=== PATIENT | male | born 1945 | race Caucasian/White ===

== ENCOUNTER 2022-12-13 11:31 | Outpatient (OUT) | payer MEDICARE, SELFPAY ==
[2022-12-13 12:25] LABS: Amphetamine Screen Urine NEGATIVE (NEGATIVE); Barbiturates Screen Urine NEGATIVE (NEGATIVE); Benzodiazepines Screen Urine NEGATIVE (NEGATIVE); Buprenorphine Screen Urine NEGATIVE (NEGATIVE); Cannabinoid Screen Urine NEGATIVE (NEGATIVE); Cocaine Screen Urine NEGATIVE (NEGATIVE); Methadone Screen Urine NEGATIVE (NEGATIVE); Methamphetamines Screen Urine NEGATIVE (NEGATIVE); Opiate Screen Urine NEGATIVE (NEGATIVE); Oxycodone Screen Urine NEGATIVE (NEGATIVE); Phencyclidine Screen Urine NEGATIVE (NEGATIVE); Tricyclic Antidepressant Urine NEGATIVE (NEGATIVE)
== END 2022-12-13 11:32 | disposition home or self-care (01) ==
LOC: LAB 11:34
PROVIDERS: PCP Internal Medicine
DX: G62.9 Polyneuropathy, unspecified (principal); Z51.81 Encounter for therapeutic drug level monitoring; Z79.899 Other long term (current) drug therapy
CPT/HCPCS: 80307

== ENCOUNTER 2023-08-23 08:17 | Outpatient (OUT) | payer MEDICARE, SELFPAY ==
--- NOTE | 2023-08-23 08:30 | CA_ITS ---
Patient Name: TOMÁS COLBY MR#: [id number] : 1945 Exam Date: 08/23/2023 Ordering Doctor: DR ONEIDA TUTTLE M.D. ECHOCARDIOGRAM REPORT PROCEDURE: CA ECHO DOPPLER COMPLETE INDICATIONS: New atrial fibrillation, hypertension COMPARISON: None. DESCRIPTION: COMPLETE ECHOCARDIOGRAM Real-time transthoracic echocardiography with 2D, M-mode, spectral and color flow Doppler performed. QUALITY: Technical quality was good. 71 , 268#, BSA 2.39, BP 124/82 LEFT VENTRICLE: Normal chamber size. Mild concentric left ventricular hypertrophy. LV EF: Global left ventricular systolic function is normal; visually estimated ejection fraction is 55 to 60%. No significant wall motion abnormalities. DIASTOLIC: Not adequately assessed due to heart rhythm. ATRIAL SEPTUM: Visually appears intact. LEFT ATRIUM: Normal chamber size. RIGHT ATRIUM: Normal chamber size. RIGHT VENTRICLE: Normal chamber size. Normal right ventricular systolic function. TRICUSPID VALVE: Normal mobility and thickness. No stenosis with mild regurgitation. Doppler studies reveal moderately (45-60) elevated right sided pressures. RVSP 48 mmHg MITRAL VALVE: Normal mobility and thickness. No evidence of mitral valve stenosis. Mild mitral annular calcification. Mild mitral regurgitation. AORTIC VALVE: Normal trileaflet appearance. Normal leaflet mobility. No evidence of aortic valve stenosis. Multifocal calcifications. No aortic regurgitation. AORTIC ROOT: Normal diameter and appearance. Ascending aorta is normal in size. PULMONIC VALVE: Normal thickness and mobility. No stenosis. Mild regurgitation. PERICARDIUM: Anterior free space; trivial effusion versus fat pad. IVC: Collapses with inspirations. IVC is normal in size. CONCLUSION: 1. Global left ventricular systolic function is normal; visually estimated ejection fraction 55 to 60% 2. Normal right ventricular size and systolic function 3. Mildly increased left ventricular wall thickness 4. Mild tricuspid regurgitation 5. Moderately elevated right ventricular systolic pressure; RVSP 48 mmHg 6. Mild mitral regurgitation 7. Mild pulmonic regurgitation 8. Anterior free space; trivial effusion versus fat pad Adult Echocardiography Procedure Report Left Ventricle LVEDD (3.7 - 5.6 cm): 4.80 cm LVESD (2.2 - 4.0 cm): 2.87 cm LVIVS thickness (0.6 - 1.2 cm): 1.53 cm LVPW thickness (0.5 - 1.0 cm): 1.23 cm LVOT Max Gradient: 2.57 mm[Hg] LVOT Area (cm2): 0.80 m/s Peak Velocity (LVOT): 0.80 m/s Mean Velocity (LVOT): 0.62 m/s LVOT Diameter 2.51 cm Left Atrium LA Volume Index (2D A2C): 34.50 ml/m2 Left Atrium Systolic Dimension: 3.76 cm Mitral Valve Mitral Valve E-Wave Peak Velocity: 0.71 m/s Right Ventricle Aorta AO Root Diam: 4.46 cm Ascending Ao Diam: 3.81 cm Aortic Valve AoV Area (Peak Junaid): 3.77 cm2, 3.77 cm2 AoV Area (VTI): 3.27 cm2, 3.27 cm2 Peak Velocity(Antegrade Flow): 1.05 m/s Peak Gradient(Antegrade Flow): 4.42 mm[Hg] Mean Velocity(Antegrade Flow): 0.82 m/s Mean Gradient(Antegrade Flow): 2.96 mm[Hg] Velocity Time Integral: 23.80 cm Tricuspid Valve Peak Velocity (Regurgitant Flow): 3.34 m/s Pulmonic Valve Peak Velocity: 0.93 m/s Peak Gradient: 3.59 mm[Hg], 3.32 mm[Hg] Right Atrium Dictated by: Malissa Allen M.D. on 08/23/2023 at 15:46 Approved by: Malissa Allen M.D. on 08/23/2023 at 15:50
== END 2023-08-23 08:18 | disposition home or self-care (01) ==
LOC: CARD 08:18
PROVIDERS: PCP Internal Medicine; Visit Provider Internal Medicine
DX: I48.0 Paroxysmal atrial fibrillation (principal)
CPT/HCPCS: 93306

== ENCOUNTER 2023-10-24 10:37 | Outpatient (OUT) | payer MEDICARE, SELFPAY ==
--- OUTSIDE RECORDS SUMMARY | 2023-10-24 10:48 | XMS_ITS | CCD ---
Author Organization [facility] Care Team Providers Care Science Interpreter Name Role Phone REQUEST, DR NONE LISTED Attending Unavaila ble REQUEST, DR VIDAL LISTED Consulting Unavaila ble TUTTLE, DR MOHAMUD Primary Care Unavailable REQUEST, NONE LISTED Admitting Unavaila ble REQUEST, NONE LISTED Attending Unavaila ble REQUEST, DR VIDAL LISTED Consulting Unavaila ble REQUEST, DR VIDAL LISTED Admitting Unavaila ble TUTTLE, DR MOHAMUD Primary Care Unavailable GRIFFIN, SALVATORE Admitting Unavailable ORTEGA, DR JOE Neff Consulting Unavailable TUTTLE, DR MOHAMUD Primary Care Unavailable SALVATORE MOYA Attending Unavailable SALVATORE MOYA Consulting Unavailable TUTTLE, DR MOHAMUD Admitting Unavailable TUTTLE, DR MOHAMUD Attending Unavailable TUTTLE, DR MOHAMUD Consulting Unavailable ZIEBER, DR PHILLY Stanton Consulting Unavailable TUTTLE, ONEIDA Wright Attending Unavailable SAKINA, FELIX Larkin Attending Unavailable PARAG, ONEIDA Wright Attending Unavailable BROWN, FELIX Larkin Attending Unavailable GWEN, LAITH Duong Attending Unavailable BROWN, FELIX Larkin Attending Unavailable TALAVERALUIS GOODRICH Attending Unavailable NANETTE BREEN Attending Unavailable NASIR YADAV Referring Unavailable TIMOTHY, NASIR Attending Unavailable TIMOTHY, NASIR Admitting Unavailable TIMOTHY, NASIR Attending Unavailable TIMOTHY, NASIR Referring Unavailable Problems Problem Classification Problem Date Documented Date Episodic/Chronic Aortic; peripheral; and visceral artery aneurysms (4 sources) Abdominal aortic aneurysm, without rupture; Translations: [ABDOMINAL AORTIC ANEUR W/O RUPTURED] Onset: 03-26-2020 Chronic Cardiac dysrhythmias (2 sources) Paroxysmal atrial fibrillation; Translations: [Paroxysmal atrial fibrillation] Onset: 09-18-2023 Chronic Spondylosis; intervertebral disc disorders; other back problems (1 source) Other spondylosis with radiculopathy, lumbar region; Translations: [OT SPONDYLS RADICULOPATHY LUMB RGN] Onset: 11-17-2020 Chronic Spondylosis; intervertebral disc disorders; other back problems (4 sources) Spinal stenosis, lumbar region without neurogenic claudication; Translations: [SPINAL STENOSIS LUMBAR REGION NO NC] Onset: 09-28-2020 Episodic Results Test Name Value Interpretation Reference Range Triston Rojas 10-22-2023 ANES - Attestation signed by Nasir Yadav MD at 10/22/2023 10:53 AM By using the attestations below, the signing clinician agrees that I have read and verify that the documentation has been personally reviewed by me and ensure that the documentation accurately reflects the encounter. GC: I personally saw this patient on the day of the encounter, performed the briceño portion(s) of the service and participated in the management and confirm the resident's documentation. Please note there may be an additional personal documentation from me. Patient: Tomás Colby Procedure Information Date/Time: 10/22/23 1100 Procedure: Cardioversion - to be done in 4 weeks Location: [facility] / [facility] (Cath) Providers: Nasir Yadav MD Clinical information reviewed: Allergies Meds Physical Exam Airway Mallampati: III Cardiovascular Rhythm: irregular Rate: normal Dental Pulmonary Breath sounds clear to auscultation Abdominal Anesthesia Plan ASA 3 other (Conscious Sedation) intravenous induction Anesthetic plan and risks discussed with patient. Use of blood products discussed with patient who consented to blood products. Plan discussed with attending. Additional Equipment Requests Normal [facility] HPon 10-22-2023 - Attestation signed by Nasir Yadav MD at 10/22/2023 10:53 AM By using the attestations below, the signing clinician agrees that I have read and verify that the documentation has been personally reviewed by me and ensure that the documentation accurately reflects the encounter. GC: I personally saw this patient on the day of the encounter, performed the briceño portion(s) of the service and participated in the management and confirm the resident's documentation. Please note there may be an additional personal documentation from me. History Of Present Illness Tomás Colby is a 78 y.o. year old with past medical history of hypertension, diabetes, was seen by his primary care doctor Dr. Simpson for elevated blood pressure. he was noted to be in atrial fibrillation at that time in August 10, 2023. he was started on anticoagulation at that time and thereafter an echocardiogram was ordered and referred to me for further evaluation. patient was also noted to have elevated TSH at that time. EKG 09/18/2023: Afib with varying VR 75bpm Past Medical History He has a past medical history of Abnormal ECG, Arrhythmia, Atrial fibrillation (CMS/HCC), and Hypertension. Surgical History He has no past surgical history on file. Social History He reports that he has quit smoking. His smoking use included cigarettes. He has quit using smokeless tobacco. He reports current alcohol use. No history on file for drug use. Allergies Patient has no known allergies. Medications Medications Prior to Admission Medication Sig Dispense Refill Last Dose amiodarone (Pacerone) 200 mg tablet Take 2 tablets (400 mg) by mouth in the morning and at bedtime for 14 days, THEN 1 tablet (200 mg) in the morning. 146 tablet 0 10/22/2023 Eliquis 5 mg tablet TAKE 1 TABLET (5 MG) BY MOUTH IN THE MORNING AND BEFORE BEDTIME 10/22/2023 metoprolol succinate XL (Toprol-XL) 25 mg 24 hr tablet Take 25 mg by mouth in the morning. 10/22/2023 RABEprazole (Aciphex) 20 mg EC tablet TAKE 1 TABLET BY MOUTH EVERY DAY FOR 100 DAYS 10/22/2023 valsartan-hydrochloro thiazide (Diovan-HCT) 320-25 mg tablet Take 1 tablet by mouth in the morning. 10/22/2023 Review of Systems 10 point Negative Physical Exam Vitals reviewed. Constitutional: Appearance: Normal appearance. HENT: Head: Normocephalic and atraumatic. Eyes: General: Right eye: No discharge. Left eye: No discharge. Cardiovascular: Rate and Rhythm: Normal rate and regular rhythm. Pulmonary: Effort: Pulmonary effort is normal. No respiratory distress. Breath sounds: Normal breath sounds. Neurological: General: No focal deficit present. Mental Status: He is alert and oriented to person, place, and time. Psychiatric: Mood and Affect: Mood normal. Behavior: Behavior normal. Last Recorded Vitals Blood pressure (!) 164/95, pulse 67, resp. rate 17, SpO2 96 %. Relevant Results Assessment/Plan Principal Problem: Paroxysmal atrial fibrillation (CMS/HCC) Patient has been on AC for the last 4 weeks. Proceed with DCCV. Robert Noriega MD PGY-4 Cardiology Fellowship Program [facility] Pager # [phone] [facility] NURSNOTEon 10-22-2023 NURSNOTE RN educated pt on d/ c instructions. RN encouraged pt to voice any questions or concerns. Pt verbalizes no questions or concerns at this time. Pt was wheeled off of unit with all of belongings. [facility] Orders Onlyon 10-22-2023 Orders Only [id number] Tomás Colby 1945 M Date Provider Department Center 10/22/2023 NASIR JACOB [facility] CARD [place] Family History Problem Relation Age of Onset Other Mother Heart failure Mother Family Status - Relation Status Age at Mother [facility] Prep for Procedureon 024 Prep for Procedure [id number] Tomás Colby 1945 M Date Provider Department Center 10/05/2023 NASIR JACOB [facility] LAB [facility] HeartVAS Family History Problem Relation Age of Onset Other Mother Heart failure Mother Family Status - Relation Status Age at Mother Normal [facility] Office Visiton 09-18-2023 Follow-up visit [id number] Tomás Colby 1945 M Date Provider Department Center 09/18/2023 NASIR JACOB [facility] Family History Problem Relation Age of Onset Other Mother Heart failure Mother Family Status - Relation Status Age at Mother Level of Service:[address] [place] OFFICE/OUTPATIENT NEW MODERATE MDM 45 MINUTES Normal [facility] MRI LSPINE WO CONon 09-29-19 MRI LSPINE WO CON EXAMINATION: MRI LSPINE WO CON HISTORY: Spondylosis without myelopathy , chronic low back pain with stiffness COMPARISON: 05/04/2015 TECHNIQUE: A variety of imaging planes and parameters were utilized for visualization of suspected pathology. FINDINGS: For the purposes of numbering, sagittal T2 image # 9 extends from the T11 vertebral body superiorly to the S2-S3 level inferiorly. PARASPINAL AREA: Normal with no visible mass. BONES: 6 mm anterolisthesis of L3 in relation to L4. 3 mm anterolisthesis of L4 in relation to L5. Heterogeneous appearance of the marrow likely age-related and/or hemangiomas. CORD/CAUDA EQUINA: Normal caliber, contour, and signal intensity. DISC LEVELS: 12-L1: Moderate degenerative disc disease is present without visible neural impingement. L1-L2: Disc desiccation. Posterior broad-based disc protrusion extending up to 2.8 mm, sagittal image 8. Ligamentum flavum hypertrophy and facet osteoarthropathy. No definite central or foraminal stenosis L2-L3: Disc desiccation. Posterior broad-based disc protrusion extending up to 2.2 mm. Moderate ligamentum flavum hypertrophy and facet osteoarthropathy. Mild trefoil narrowing of the central canal. Moderate narrowing of the right neural foramen best seen on sagittal image 12. No left foraminal stenosis L3-L4: 6 mm anterolisthesis of L3 on L4 with resultant pseudobulge. Moderate ligamentum flavum hypertrophy and facet osteoarthropathy. Severe central canal stenosis with the central canal measuring only 4 mm triangular in shape axial image #14. Moderate right foraminal stenosis sagittal image 13 with mild left foraminal stenosis sagittal image 5 L4-L5: 3 mm anterolisthesis of L4 in relation L5. Moderate diffuse bulge/pseudobulge. Ligamentum flavum hypertrophy and facet osteoarthropathy. No definite central or foraminal stenosis L5-S1: Disc space narrowing. No disc bulge or herniation. No central or foraminal stenosis IMPRESSION: Degenerative changes and multilevel spondylolisthesis. These findings are most significant at L3-L4 where severe central canal stenosis is observed. Foraminal stenosis at several levels as detailed above. Surgical consultation is recommended Electronically authenticated by: JOE VIVAS Date: 2020-09-28 09:11 Normal [facility] US ABD AORTA SCREENINGon US ABD AORTA SCREENING EXAM: US ABD AORTA SCREENING HISTORY: Abdominal aortic aneurysm without rupture. TECHNIQUE: Ultrasound was performed of the abdominal aorta. COMPARISON: None. FINDINGS: AORTA: No aneurysm, significant atherosclerosis, or visible occlusion. OTHER: Mild dilation of the common iliac arteries, 1.5 cm on right, 1.9 cm in diameter on left. IMPRESSION: 1. No abdominal aortic aneurysm or significant aortic atherosclerotic disease. Electronically authenticated by: PHILLY SHAW Date: 2020-03-26 10:15 [facility] Encounters Encounter Date Encounter Type Care Provider Facility Start: 10-22-2023 ambulatory [facility] Start: 10-22-2023 End: 10-22-2023 ambulatory [facility] Start: 10-17-2023 End: 10-17-2023 ambulatory NANETTE BREEN Not Available Start: 09-18-2023 End: 09-18-2023 ambulatory [facility] Start: 09-17-2023 End: 09-17-2023 ambulatory LUIS TALAVERA Not Available Start: 08-30-2023 End: 08-30-2023 ambulatory FELIX PRESLEY Not Available Start: 08-29-2023 End: 08-29-2023 ambulatory LAITH HIDALGO Not Available Start: 08-16-2023 End: 08-16-2023 ambulatory FELIX PRESLEY Not Available Start: 08-10-2023 End: 08-10-2023 ambulatory ONEIDA TUTTLE Not Available Start: 08-02-2023 End: 08-02-2023 ambulatory FELIX Trae SAKINA Not Available Start: 08-01-2023 End: 08-01-2023 ambulatory ONEIDA TUTTLE Not Available Start: 09-28-2020 End: 09-29-2020 ambulatory SALVATORE MOYA Facility:[facility] Start: 08-03-2020 End: 08-04-2020 ambulatory NONE LISTED REQUEST Facility:[facility] Start: 07-12-2020 End: 07-13-2020 ambulatory NONE LISTED REQUEST Facility:[facility] Start: 03-26-2020 End: 03-27-[address] ONEIDA TUTTLE Facility:[facility] Payers Date Payer Category Payer Medicare [id number] 1957 Self-pay 1945 Unknown [id number] 2.16.84 [id number] 1945 Unknown [id number] 2.16.84 [id number] 1945 Unknown [id number] 2.16.84 [id number] 1945 Unknown [id number] 2.16.84 [id number] 1945 Unknown [id number] 2.16.84 [id number] 1945 Unknown [id number] 2.16.84 [id number] 1945 Unknown [id number] 2.16.84 [id number] 1945 Unknown [id number] 2.16.84 [id number] 1945 Unknown [id number] 2.16.84 [id number] 1945 Unknown [id number] 2.16.84 [id number] Unknown [id number] 2.16.84 [id number] Unknown [id number] 2.16.84 [id number] Progress note 09-18-2023 Note Date & Type Note Facility 09-18-2023 Note [place] [facility] Consult Note [place] [facility] Reason for visit: atrial fibrillation HPI: Tomás Colby is a 78 y.o. year old with past medical history of hypertension, diabetes, was seen by his primary care doctor Dr. Simpson for elevated blood pressure. he was noted to be in atrial fibrillation at that time in August 10, 2023. he was started on anticoagulation at that time and thereafter an echocardiogram was ordered and referred to me for further evaluation. patient was also noted to have elevated TSH at that time. EKG 09/18/2023: Afib with varying VR 75bpm echocardiogram done subsequently reveals normal EF with normal left atrial size PMH: Past Medical History: Diagnosis Date Abnormal ECG Arrhythmia Atrial fibrillation (CMS/HCC) Hypertension PSH: No past surgical history on file. SH: Social Determinants of Health Tobacco Use: Medium Risk (09/18/2023) Patient History Smoking Tobacco Use: Former Smokeless Tobacco Use: Former Passive Exposure: Not on file Alcohol Use: Not on file Financial Resource Strain: Not on file Food Insecurity: Not on file Transportation Needs: Not on file Physical Activity: Not on file Stress: Not on file Social Connections: Not on file Intimate Partner Violence: Unknown (08/13/2023) [place] Safety & Environment Fear of Current or Ex-Partner: Not on file Emotionally Abused: Not on file Physically Abused: Not on file Sexually Abused: Not on file Physically or Sexually Abused: Not on file Depression: Not on file Housing Stability: Not on file Utilities: Not on file Allergies: No Known Allergies Weight: 122kg Visit Vitals BP 140/90 (BP Location: Left arm, Patient Position: Sitting) Pulse 69 Ht 1.803 m (5' 11 ) Wt 122 kg (270 lb) SpO2 96% BMI 37.66 kg/m??? Smoking Status Former BSA 2.47 m??? Meds: Current Outpatient Medications on File Prior to Visit Medication Sig Dispense Refill Eliquis 5 mg tablet TAKE 1 TABLET (5 MG) BY MOUTH IN THE MORNING AND BEFORE BEDTIME metoprolol succinate XL (Toprol-XL) 25 mg 24 hr tablet Take 25 mg by mouth in the morning. RABEprazole (Aciphex) 20 mg EC tablet TAKE 1 TABLET BY MOUTH EVERY DAY FOR 100 DAYS valsartan-hydrochlorothiazide (Diovan-HCT) 320-25 mg tablet Take 1 tablet by mouth in the morning. No current facility-administered medications on file prior to visit. ROS: Review of Systems Cardiovascular: Positive for dyspnea on exertion, leg swelling and palpitations. Musculoskeletal: Positive for joint pain, myalgias and neck pain. Neurological: Positive for headaches. All other systems reviewed and are negative. Physical Exam: Constitutional General Appearance: well-nourished, well-developed, appears stated age Level of Distress: comfortable Psychiatric Mental Status: alert, normal affect Orientation: oriented to time, place, and person Insight: good judgement Eyes Lids and Conjunctivae: non-injected, no xanthelasma ENMT Ears: no lesions on external ear Nose: no lesions on external nose Oropharynx: no cyanosis, no pallor Neck Neck: supple, trachea midline Carotid Arteries: bilateral normal upstroke, no bruits Jugular Veins: normal jugular venous pressure Thyroid: not enlarged Lungs Respiratory Effort: unlabored Chest Exam: normal curvature, no thoracic deformity Auscultation: clear, no wheezing, no rales, no rhonchi Cardiovascular Rate And Rhythm: regular Heart Sounds: normal S1, normal s2, no gallop Systolic Murmur: not heard Diastolic Murmur: not heard Extremities: no cyanosis, no edema, no peripheral signs of emboli Peripheral Pulses Radial Pulse: normal Abdomen Inspection and Palpation: soft, non distended, no bruit, non tender Musculoskeletal Inspection: no joint swelling Neurologic Gait: normal gait Skin Inspection and Palpation: warm and dry Nails: no clubbing Labs: @LABRESULTS@ No results found for: CHOLESTEROL TOTAL , HDL , LDL CALC , LDL DIRECT , TRIGLYCERIDES , TSH , T3 TOTAL , T4 TOTAL , THYROID PEROXIDASE AB , BNP EKG: No results found for this or any previous visit (from the past 4464 hour(s)). Echo: 08/23/2023 Stress test: Coronary angiogram: @CATH@ Diagnostic Imaging: No images are attached to the encounter. Assessment and Plan: - Afib: patient has got a new diagnosis of atrial fibrillation and for the fact that he has remained in A-fib tells me that he is in persistent atrial fibrillation and not likely chronic as his left atrial size appear to be normal. at this stage I would start him on amiodarone and offer cardioversion and then subsequently considered for ablation to maintain sinus rhythm. we talked about risk factor modification and to maintain sinus rhythm and the importance of weight loss and calorie control. his [id number] score is 4 which will require long-term anticoagulation. he will need to be worked up for sleep apnea - hyp (more content not included)... [facility] Summary Purpose Family History No Family History Records FoundNo Family History Records FoundNo Family History Records Found Advance Directives No Advanced Directives Records FoundNo Advanced Directives Records FoundNo Advanced Directives Records Found Additional Source Comments (unrecognized sect ion and content) No Status Records FoundNo Status Records FoundNo Status Records Found INFORMATION SOURCE (unrecogn ized section and content) DATE CREATED AUTHOR 11/18/2020 [facility] pital DATE CREATED AUTHOR AUTHOR'S ORGANIZ ATION 10/19/2023 [facility] EPIC DATE CREATED AUTHOR AUTHOR'S ORGANIZ ATION 10/22/2023 [facility] FOR RECORDS PERTAINING TO PATIENTS WHO ARE OR HAVE BEEN ENROLLED IN A CHEMICAL DEPENDENCY/SUBSTANCEABUSE PROGRAM, SOME INFORMATION MAY BE OMITTED. This clinical summary was aggregated from multiple sources. Caution should be exercised in using it in the provision of clinical care. This summary normalizes information from multiple sources, and as a consequence, information in this document may materially change the coding, format and clinical context of patient data. In addition, data may be omitted in some cases. CLINICAL DECISIONS SHOULD BE BASED ON THE PRIMARY CLINICAL RECORDS. [employer] provides no warranty or guarantee of the accuracy or completeness of information in this document.
[2023-10-24 11:26] LABS: Basophils Percent Auto 0.4 % (0.2-2.0); Eosinophils Absolute Auto 0.2 10^3/uL (0.0-0.7); Eosinophils Percent Auto 2.9 % (0.9-7.0); Hematocrit 37.9 % (42.0-54.0); Hemoglobin 12.1 g/dL (14.0-18.0); Immature Granulocytes Abs Auto 0.02 10^3/uL (0.00-0.03); Immature Granulocytes Pct Auto 0.2 % (0.0-0.5); Lymphocytes Absolute Auto 2.8 10^3/uL (1.2-3.8); Lymphocytes Percent Auto 34.7 % (20.5-60.0); Mean Corpuscular HGB Conc 31.9 g/dL (29.9-35.2); Mean Corpuscular Volume 93.8 fL (80.0-94.0); Mean Platelet Volume 10.9 fL (9.5-13.5); Monocytes Absolute Auto 0.8 10^3/uL (0.3-0.8); Monocytes Percent Auto 10.2 % (1.7-12.0); Neutrophils Absolute Auto 4.2 10^3/uL (1.4-6.5); Neutrophils Percent Auto 51.6 % (43.0-75.0); Platelet Count 265 10^3/uL (150-450); Red Blood Count 4.04 10^6/uL (4.70-6.10); Red Cell Distribution Width 14.3 % (11.0-15.0)
[2023-10-24 12:14] LABS: BUN Creatinine Ratio 22.6; Calcium 8.3 mg/dL (8.5-10.1); Carbon Dioxide 28.8 mmol/L (21.0-32.0); Chloride 106 mmol/L (98-107); Estimated GFR (African America >60 (>=60); Estimated GFR (Non-African Ame >60 (>=60); Glucose 107 mg/dL (74-106); Potassium 3.8 mmol/L (3.5-5.1); Sodium 142 mmol/L (136-145)
== END 2023-10-24 10:38 | disposition home or self-care (01) ==
LOC: LAB 10:44
PROVIDERS: PCP Internal Medicine; Visit Provider Internal Medicine Cardiovascular Disease
DX: I48.0 Paroxysmal atrial fibrillation (principal)
CPT/HCPCS: 36415; 80048; 85025

== ENCOUNTER 2023-12-14 09:32 | Outpatient (OUT) | payer MEDICARE, SELFPAY ==
[2023-12-14 10:07] LABS: Basophils Percent Auto 0.6 % (0.2-2.0); Eosinophils Absolute Auto 0.2 10^3/uL (0.0-0.7); Eosinophils Percent Auto 3.1 % (0.9-7.0); Hematocrit 39.9 % (42.0-54.0); Hemoglobin 12.7 g/dL (14.0-18.0); Immature Granulocytes Abs Auto 0.01 10^3/uL (0.00-0.03); Immature Granulocytes Pct Auto 0.2 % (0.0-0.5); Lymphocytes Absolute Auto 2.5 10^3/uL (1.2-3.8); Lymphocytes Percent Auto 39.5 % (20.5-60.0); Mean Corpuscular HGB Conc 31.8 g/dL (29.9-35.2); Mean Corpuscular Hemoglobin 30.5 pg (25.9-34.0); Mean Corpuscular Volume 95.7 fL (80.0-94.0); Mean Platelet Volume 11.2 fL (9.5-13.5); Monocytes Absolute Auto 0.6 10^3/uL (0.3-0.8); Monocytes Percent Auto 8.7 % (1.7-12.0); Neutrophils Percent Auto 47.9 % (43.0-75.0); Platelet Count 217 10^3/uL (150-450); Red Blood Count 4.17 10^6/uL (4.70-6.10); Red Cell Distribution Width 13.7 % (11.0-15.0); White Blood Count 6.4 10^3/uL (4.0-11.0)
[2023-12-14 10:25] LABS: Anion Gap 7.9; BUN Creatinine Ratio 23.3; Calcium 8.8 mg/dL (8.5-10.1); Chloride 104 mmol/L (98-107); Estimated GFR (African America >60 (>=60); Estimated GFR (Non-African Ame >60 (>=60); Glucose 110 mg/dL (74-106); Potassium 3.9 mmol/L (3.5-5.1); Sodium 140 mmol/L (136-145)
== END 2023-12-14 09:33 | disposition home or self-care (01) ==
LOC: LAB 09:37
PROVIDERS: PCP Internal Medicine; Visit Provider Internal Medicine Cardiovascular Disease
DX: I48.19 Other persistent atrial fibrillation (principal)
CPT/HCPCS: 36415; 80048; 85025

== ENCOUNTER 2024-03-12 09:25 | Outpatient (OUT) | payer MEDICARE, SELFPAY ==
--- OUTSIDE RECORDS SUMMARY | 2024-03-12 09:41 | XMS_ITS | CCD ---
Author Organization [facility] Care Team Providers Care Chief Ii Dispatcher Name Role Phone REQUEST, NONE LISTED Attending Unavaila ble REQUEST, NONE LISTED Consulting Unavaila ble BRANHAM, DR MOHAMUD Primary Care Unavailable REQUEST, NONE LISTED Admitting Unavaila ble REQUEST, NONE LISTED Attending Unavaila ble REQUEST, NONE LISTED Consulting Unavaila ble REQUEST, NONE LISTED Admitting Unavaila ble BRANHAM, DR MOHAMUD Primary Care Unavailable SALVATORE MOYA Admitting Unavailable TERRYVILLE, DR JOE Neff Consulting Unavailable PARAG, DR MOHAMUD Primary Care Unavailable SALVATORE MOYA Attending Unavailable GRIFFIN, SALVATORE Consulting Unavailable PARAG, DR MOHAMUD Admitting Unavailable BRANHAM, DR MOHAMUD Attending Unavailable BRANHAM, DR MOHAMUD Consulting Unavailable ZIEBER, DR PHILLY Stanton Consulting Unavailable TIMOTHY, NASIR Referring Unavailable TIMOTHY, NASIR Attending Unavailable TIMOTHY, NASIR Attending Unavailable ERIEJANNETTE Attending Unavailable TIMOTHY, NASIR Admitting Unavailable TIMOTHY, NASIR Attending Unavailable TIMOTHY, NASIR Admitting Unavailable TIMOTHY, NASIR Attending Unavailable BRADXIOMARA Attending Unavailable TIMOTHY, NASIR Referring Unavailable TIMOTHY, NASIR Referring Unavailable TIMOTHY, NASIR Referring Unavailable Armando Branham MD Unavailable [phone] Armando Branham MD Primary Care Provider ARMANDO BRANHAM Attending Unavailable FELIX PRESLEY Attending Unavailable ARMANDO BRANHAM Attending Unavailable FELIX PRESLEY Attending Unavailable LAITH HIDALGO Attending Unavailable FELIX PRESLEY Attending Unavailable LUIS TALAVERA Attending Unavailable NANETTE MARTINEZ Attending Unavailable LUIS TALAVERA Attending Unavailable NANETTE MARTINEZ Attending Unavailable LUIS TALAVERA Referring Unavailable TALAVERALUIS GOODRICH Attending Unavailable Medications Current Medications Medication Drug Class(es) Dates Sig (Normalized) Sig (Original) acetaminophen 325 mg / HYDROcodone bitartrate 5 mg oral tablet (4 sources) Opioid Agonist Start: 03-06-2024 End: 04-05-2024 take 1 tablet by mouth once daily as needed for pain HYDROcodone-acetami nophen ([place]) 5-325 MG tablet Indications: Lumbar facet arthropathy , Spinal stenosis of lumbar region, unspecified whether neurogenic claudication present Take 1 tablet by mouth Daily as needed for severe pain 30 tablet 03/06/2024 04/05/2024 Active End: 03-06-2024 take 1 tablet by mouth every six hours as needed for pain HYDROcodone-acetaminophen ([place]) 5-325 MG tablet Take 1 tablet by mouth every 6 (six) hours if needed for severe pain 03/06/2024 Discontinued (Reorder) amiodarone hydrochloride 200 mg oral tablet (3 sources) Antiarrhythmic take 2 tablets by mouth at bedtime, then take 1 tablet by mouth in the morning amiodarone (Pacerone) 200 MG tablet TAKE 2 TABLETS BY MOUTH IN THE MORNING AND AT BEDTIME FOR 14 DAYS, THEN 1 TABLET IN THE MORNING Active amLODIPine 5 mg oral tablet (5 sources) Dihydropyridine Calcium Channel Mary Start: 024 take 1 tablet by mouth once daily amLODIPine (Norvasc) 5 MG tablet Indications: Essential (primary) hypertension (CMS/HCC) TAKE 1 TABLET BY MOUTH EVERY DAY 100 DAYS 90 tablet 5 09/17/2023 Active take 1 tablet by mouth once renita y amLODIPine (Norvasc) 2.5 MG tablet Take 2.5 mg by mouth Daily Active apixaban 5 mg oral tablet (3 sources) Factor Xa Inhibitor Start: 08-10-2023 take 1 tablet by mouth in the morning apixaban (Eliquis) 5 MG tablet Indications: Paroxysmal atrial fibrillation (CMS/HCC) Take 1 tablet (5 mg) by mouth in the morning and 1 tablet (5 mg) before bedtime. 60 tablet 11 08/10/2023 Active Blood Pressure kit (3 sources) Start: 08-29-2023 End: 08-28-2024 Blood Pressure kit Indications: Benign essential hypertension (CMS/HCC) , Paroxysmal atrial fibrillation (CMS/HCC) 1 Device Daily 1 kit 08/29/2023 08/28/2024 Active hydroCHLOROthiazide 25 mg / valsartan 320 mg oral tablet (3 sources) Thiazide Diuretic, Angiotensin 2 Receptor Mary Start: 09-19-2023 take 1 tablet by mouth once daily valsartan-hydroCH LOROthiazide (Diovan-HCT) 320-25 MG tablet Indications: Essential (primary) hypertension (CMS/HCC) Take 1 tablet by mouth Daily 90 tablet 5 09/19/2023 Active 24 hr metoprolol succinate 25 mg extended release oral tablet (3 sources) beta-Adrenergic Mary Start: 08-29-2023 End: 08-28-2024 take 1 tablet by mouth once daily metoprolol succinate XL (Toprol-XL) 25 MG 24 hr tablet Indications: Benign essential hypertension (CMS/HCC) , Paroxysmal atrial fibrillation (CMS/HCC) Take 1 tablet (25 mg) by mouth Daily Do not crush or chew. 90 tablet 3 08/29/2023 08/28/2024 Active nebivolol 10 mg oral tablet (2 sources) Start: 02-06-2024 End: 08-04-2024 take 1 tablet by mouth in the morning nebivolol (Bystolic) 10 MG tablet Take 10 mg by mouth in the morning. 02/06/2024 08/04/2024 Active omeprazole 40 mg delayed release oral capsule (2 sources) Proton Pump Inhibitor Start: 12-19-2023 take 1 capsule by mouth before mealtime omeprazole (PriLOSEC) [address] capsule Take 40 mg by mouth in the morning. Take before meals. 12/19/2023 Active RABEprazole sodium 20 mg delayed release oral tablet (3 sources) Proton Pump Inhibitor Start: 09-19-2023 take 1 tablet by mouth once daily RABEprazole (Aciphex) 20 MG EC tablet Indications: Gastro-esophageal reflux disease with esophagitis TAKE 1 TABLET BY MOUTH EVERY DAY FOR 100 DAYS 90 tablet 5 09/19/2023 Active tiZANidine 4 mg oral tablet (3 sources) Central alpha-2 Adrenergic Agonist take 4 mg by mouth at bedtime TIZANIDINE HCL PO Take 4 mg by mouth at bedtime Active Problems Active Problems Problem Classification Problem Date Documented Date Episodic/Chronic Aortic; peripheral; and visceral artery aneurysms (4 sources) Abdominal aortic aneurysm, without rupture; Translations: [ABDOMINAL AORTIC ANEUR W/O RUPTURED] Onset: 03-26-2020 Chronic Cardiac dysrhythmias (5 sources) Paroxysmal atrial fibrillation; Translations: [Paroxysmal atrial fibrillation] Onset: 08-10-2023 Chronic Diabetes mellitus with complications (3 sources) Type 2 diabetes mellitus; Translations: [Type 2 diabetes mellitus with other specified complication] Onset: 08-01-2023 08-01-2023 Chronic Disorders of lipid metabolism (3 sources) Pure hypercholesterolemia; Translations: [Pure hypercholesterolemia, unspecified] Onset: 10-23-2022 10-23-2022 Chronic Diverticulosis and diverticulitis (3 sources) Diverticulosis of colon; Translations: [Diverticulosis of large intestine without perforation or abscess without bleeding] Onset: 10-23-2022 10-23-2022 Chronic Esophageal disorders (3 sources) Gastro-esophageal reflux disease with esophagitis; Translations: [Gastroesophageal reflux disease with esophagitis] Onset: 10-23-2022 10-23-2022 Chronic Essential hypertension (5 sources) Essential (primary) hypertension; Translations: [Benign essential hypertension] Onset: 10-23-2022 Chronic Hypertension with complications and secondary hypertension (2 sources) Hypertensive heart disease without heart failure; Translations: [Hypertensive heart disease without heart failure] Onset: 02-06-2024 Chronic Mood disorders (3 sources) Depressive disorder; Translations: [Depressive disorder] Onset: 10-23-2022 10-23-2022 Chronic Osteoarthritis (6 sources) Osteoarthritis; Translations: [Primary generalized (osteo)arthritis] Onset: 10-23-2022 10-23-2022 Chronic Other aftercare (5 sources) Patient encounter status; Translations: [Other rat exterminator (current) drug therapy] Onset: 09-16-2023 09-16-2023 Episodic Other connective tissue disease (5 sources) Cramp in lower limb; Translations: [Sleep related leg cramps] Onset: 09-16-2023 09-16-2023 Chronic Other nervous system disorders (5 sources) Polyneuropathy; Translations: [Polyneuropathy, unspecified] Onset: 09-16-2023 09-16-2023 Chronic Rheumatoid arthritis and related disease (2 sources) Arthropathy of lumbar facet joint 03-06-2024 Chronic Spondylosis; intervertebral disc disorders; other back problems (12 sources) Other spondylosis with radiculopathy, lumbar region; Translations: [Lumbar spondylosis] Onset: 11-17-2020 10-23-2022 Chronic Spondylosis; intervertebral disc disorders; other back problems (20 sources) Spinal stenosis, lumbar region without neurogenic claudication; Translations: [Lumbar radiculopathy] Onset: 09-28-2020 Episodic Unclassified (2 sources) Other persistent atrial fibrillation; Translations: [Other persistent atrial fibrillation] Onset: 12-19-2023 Past or Other Problems Problem Classification Problem Date Documented Date Episodic/Chronic Other connective tissue disease (3 sources) Plantar fasciitis of right foot; Translations: [Plantar fascial fibromatosis] Onset: 11-02-2022 11-02-2022 Episodic Other connective tissue disease (3 sources) Fibromyalgia; Translations: [Fibromyalgia] Onset: 09-16-2023 09-16-2023 Episodic Other connective tissue disease (3 sources) Musculoskeletal finding; Translations: [Unspecified symptoms and signs involving the musculoskeletal system] Onset: 09-16-2023 09-16-2023 Episodic Other connective tissue disease (3 sources) Muscle pain; Translations: [Myalgia, unspecified site] Onset: 09-16-2023 09-16-2023 Episodic Other connective tissue disease (3 sources) Enthesopathy of hip region; Translations: [Other specified enthesopathies of unspecified lower limb, excluding foot] Onset: 09-16-2023 09-16-2023 Episodic Other connective tissue disease (3 sources) Spasm; Translations: [Other muscle spasm] Onset: 09-16-2023 09-16-2023 Episodic Other diseases of veins and lymphatics (3 sources) Peripheral venous insufficiency; Translations: [Venous insufficiency (chronic) (peripheral)] Onset: 08-10-2023 08-10-2023 Episodic Other nervous system disorders (3 sources) Skin sensation disturbance; Translations: [Unspecified disturbances of skin sensation] Onset: 09-16-2023 09-16-2023 Episodic Other nervous system disorders (3 sources) Paresthesia; Translations: [Paresthesia of skin] Onset: 09-16-2023 09-16-2023 Episodic Results Test Name Value Interpretation Reference Range Facil ity 36on 03-02-2024 36 Can we please cut amlodipine down to 7.5mg daily to see if this will help with the swelling. Increase nebivolol to 10mg daily. Follow up BP/HR phone call in 2 weeks. Thanks! Normal [facility] 36on 02-29-2024 36 149/78 55, 170/82 60 , 149/67, 170/82 60, 153/81 61, 196/90 51, 155/79 50, 157/76, 167/80 59, 148/69 67, 151/82 57, 161/66, 155/73, 159/86 58. Also his legs and feet are swelling with the increased amlodipine [facility] 37on 02-06-2024 37 *Will replace metoprolol with Bystolic (nebivolol), 5mg. Take 1 tablet daily. *Monitor blood pressure 2 hours after taking morning medications and write down readings. Write down HR as well. *Stop in for a blood pressure cuff comparison. *Continue to stay active. Recommend moderate intensity exercise for 20-30 mins 5 days a week. [facility] Office Visiton 02-06-2024 Follow-up visit [id number] Jose A Noriega 1945 [facility] Provider Department Center 02/06/2024 JEANNETTE ARGUETA ROCAEL Patel Family History Problem Relation Age of Onset Other Mother Heart failure Mother Family Status - Relation Status Age at Mother Level of Service:19315 [place] OFFICE/OUTPATIENT ESTABLISHED MOD MDM 30 MIN Reason for Visit and Comments: Hypertension [435705] [facility] 36on 02-05-2024 36 Is this 2 hours afte r they have taken their medications? Since I've never seen the patient I don't feel comfortable prescribing anything additional. I can do a telehealth visit or he can see his PCP. [facility] 37on 01-18-2024 37 Stop amiodarone Monitor blood pressure 1-2 times a day- goal is less than 130/80 majority of the time [facility] Follow-Upon 01-18-2024 Follow-Up [id number] Jose A Noriega 1945 M [facility] Provider Department Center 01/18/2024 XIOMARA HUGGINS ROCAEL Patel Family History Problem Relation Age of Onset Other Mother Heart failure Mother Family Status - Relation Status Age at Mother Level of Service:70038 [place] OFFICE/OUTPATIENT ESTABLISHED LOW MDM 20 MIN Normal [facility] Telephoneon 01-11-2024 Telephone [id number] Jose A Noriega A 1945 M Date Provider Department Center 01/11/2024[facility] [place] [facility] Family History Problem Relation Age of Onset Other Mother Heart failure Mother Family Status - Relation Status Age at Mother Reason for Visit and Comments: 3 week post ablation f/u [Other] Normal [facility] Telephoneon 12-28-2023 Telephone [id number] Jose A Noriega A 1945 M Date Provider Department [place] 12/28/20231986-[facility] [place] [facility] Family History Problem Relation Age of Onset Other Mother Heart failure Mother Family Status - Relation Status Age at Mother Reason for Visit and Comments: week f/u post ablation [Other] Normal [facility] ANESon 12-19-2023 ANES --- Attestation signed by Nasir Yadav MD at 12/19/2023 8:26 AM By using the attestations below, the [...] an additional personal documentation from me. Patient: Harjeet Noriega Procedure Information Date/Time: 08/21/24 0830 Procedure: Ablation atrial fibrillation - PC APPROVED do after cardioversion Location: [facility] 1 EP / [facility] VASCULAR [facility] (Cath) Providers: Nasir Yadav MD Clinical information reviewed: Tobacco Allergies Meds Med Hx Surg Hx Physical Exam Airway Mallampati: III Neck ROM: full Cardiovascular Rhythm: regular Dental Pulmonary - normal exam Abdominal - normal exam Abdomen: soft Anesthesia Plan ASA 3 general (And local) intravenous induction Anesthetic plan and risks discussed with patient. Use of blood products discussed with patient who consented to blood products. Plan discussed with attending and fellow. Additional Equipment Requests Normal [facility] CALCIUM, IONIZEDon CALCIUM IONIZED (MMOL/L) IN BLOOD 1.16 mmol/L Normal 1.15-1.33 [facility] Comment on above: Performed By: #### C ALCIUM, IONIZED #### [facility] RESPIR[facility] THERAPY [address] [place] [address] [facility] HPon 12-19-2023 [facility] Electrophysiology Consult Note [place] [facility] Reason for visit: atrial fibrillation 12/19/23 Pt here for Afib ablation. EKG SR with isorhythmic junctionals 12/11/23 Pt here for discussion about ablation. HPI: Harjeet Noriega is a 78 y.o. year old with [...] Medical History: Diagnosis Date Abnormal ECG Arrhythmia Arthritis Atrial fibrillation (CMS/HCC) Diabetes mellitus (CMS/HCC) Fibromyalgia GERD (gastroesophageal reflux disease) History of colon polyps Hypertension Joint pain BACK PAIN Lipoprotein deficiency Lumbar stenosis SI (sacroiliac) joint dysfunction PSH: Past Surgical History: Procedure Laterality Date CARDIOVERSION 10/22/2023 COLONOSCOPY OTHER SURGICAL HISTORY Bilat Facet Blocks L4-S1 OTHER SURGICAL HISTORY Bilateral L4-L5 Facet Injections 04/13/2021, 12/19/2021, 06/27/2022 OTHER SURGICAL HISTORY IR FACET INJ LUMB OR SAC 1ST 06/06/2023 Bilateral L4-L5 TONSILLECTOMY SH: Social Determinants of Health Tobacco Use: Medium Risk (12/19/2023) Patient History Smoking Tobacco Use: Former Smokeless Tobacco Use: Former Passive Exposure: Not on file Alcohol Use: Not on file Financial Resource Strain: Not on file Food Insecurity: Not on file Transportation Needs: Not on file Physical Activity: Not on file Stress: Not on file Social Connections: Not on file Intimate Partner Violence: Unknown (08/13/2023) [place] Safety & Environment Fear of Current or Ex-Partner: Not on file Emotionally Abused: Not on file Physically Abused: Not on file Sexually Abused: Not on file Physically or Sexually Abused: Not on file Depression: Not on file Housing Stability: Not on file Utilities: Not on file Allergies: No Known Allergies Weight: 126kg Visit Vitals BP (!) 191/93 Pulse 54 Temp 36.2 ???C (97.2 ???F) (Temporal) Resp 18 Ht 1.803 m (5' 11 ) Wt 126 kg (277 lb 9 oz) SpO2 96% BMI 38.71 kg/m??? Smoking Status Former BSA 2.51 m??? Meds: No current facility-administered medications on file prior to encounter. Current Outpatient Medications on File Prior to Encounter Medication Sig Dispense Refill amiodarone (Pacerone) 200 mg tablet Take 2 tablets (400 mg) by mouth in the morning and at bedtime for 14 days, THEN 1 tablet (200 mg) in the morning. (Patient taking differently: Take 200mg once a day) 146 tablet 0 Eliquis 5 mg tablet TAKE 1 TABLET (5 MG) BY MOUTH IN THE MORNING AND BEFORE BEDTIME metoprolol succinate XL (Toprol-XL) 25 mg 24 hr tablet Take 25 mg by mouth in the morning. RABEprazole (Aciphex) 20 mg EC tablet TAKE 1 TABLET BY MOUTH EVERY DAY FOR 100 DAYS valsartan-hydrochloroth iazide (Diovan-HCT) 320-25 mg tablet Take 1 tablet by mouth in the morning. ROS: Review of Systems Neurological: Positive for headaches. All other systems [...] , THYROID PEROXIDASE AB , BNP EKG: Encounter Date: 12/19/23 Electrocardiogram, 12-lead Result Value Ventricular Rate 49 Atrial Rate 49 [place] Interval 242 QR (more content not included)... Normal [facility] --- Attestation signed by Nasir Yadav MD at 12/19/2023 8:55 AM By using the attestations below, the [...] be an additional personal documentation from me. H&P reviewed. The patient was examined and there are no changes to the H&P. The patient presents for Afib ablation today [facility] NURSNOTEon 12-19-2023 AYSHA RN received a call b ack from Dr. Hightower and he verified with Dr. Yadav patient is okay to be discharged home still. RN educated patient on holding pressure to groin and seeking medical attention if site began to bleed and is not controlled by holding pressure or if he develops a hematoma. Normal [facility] SUYAPAE Patient stood up to get himself dressed to be discharged and reports blood dripping down my leg. RN assessed cath access site and site was saturated with new blood. RN held pressure for 10 minutes and notified powerhouse tender Dr. Hightower of bleeding site. Site is soft, no hematoma noted and bleeding has stopped. Site was redressed with new gauze and transparent film. RN was told he would get in contact with Dr. Yadav and call back with instructions. Normal [facility] AYSHA RN reviewed discharg e instructions with patient and daughter at bedside. No questions or concerns expressed at this time. Patient's head of bed elevated and cath access site remained intact, no new drainage observed. Normal [facility] POCT GLUCOSE METER UNSOLICIT ED RESULTSon 12-19-2023 Glucose [Mass/Vol] 146 mg/dL High 70-105 [facility] Comment on above: Order Comment: Waive d Testing in the ED is performed under the ED CLIA certificate #[id number]. Result Comment: hste enr2 Performed By: #### L [id number] ####[facility] (BEAKER)[address] [place] [address] Glucose [Mass/Vol] 113 mg/dL High 70-105 [facility] Comment on above: Order Comment: Waive d Testing in the ED is performed under the ED CLIA certificate #[id number]. Result Comment: evelio rd Performed By: #### L [id number] ####[facility] (CRISTA)[address] [place] [address] POTASSIUM, WHOLE BLOODon Potassium [Moles/Vol] 3.7 mmol/L Normal 3.5-5.1 [facility] Comment on above: Performed By: #### P OTASSIUM, WHOLE BLOOD #### [facility] RESPIR[facility] THERAPY [address] [place] [address] [place] PROTIME-INRon 12-19-2023 INR IN PPP BY COAGULATION ASSAY 1.16 High 0.90-1.10 [facility] Comment on above: Result Comment: ACCC P RECOMMENDED INR FOR WARFARIN THERAPY CONDITION INR PROPHYLAXIS OF VENOUS THROMBOSIS 2-3 (HIGH-RISK SURGERY) TREATMENT OF VENOUS THROMBOSIS 2-3 TREATMENT OF PULMONARY EMBOLISM 2-3 PREVENTION OF SYSTEMIC EMBOLISM: 2-3 ACUTE MYOCARDIAL INFARCTION TISSUE HEART VALVES VALVULAR HEART DISEASE ATRIAL FIBRILLATION RECURRENT SYSTEMIC EMBOLISM MECHANICAL HEART VALVE 2.5-3.5 FROM: ORAL ANTICOAGULANTS. MECHANISM OF ACTION, CLINICAL EFFECTIVENESS, AND OPTIMAL THERAPEUTIC RANGE. CHEST 1995;108:231S-246S. Performed By: #### L [id number] #### [facility] ([facility]ISTA) [address] [place] [address] PROTHROMBIN TIME (PT) IN PPP BY COAGULATION ASSAY 14.7 Seconds Normal 12.3-14.8 [facility] Comment on above: Performed By: #### L [id number] #### [facility] ([facility]) [address] [place] [address] Prep for Procedureon 024 Prep for Procedure [id number] Harjeet Noriega 1945 M Date Provider Department Center 12/19/2023 [facility] [place] [facility] Family History Problem Relation Age of Onset Other Mother Heart failure Mother Family Status - Relation Status Age at Mother Normal [facility] SODIUM, WHOLE BLOODon 2023 SODIUM, WHOLE BLOOD 134 Low 136-145 [facility] Comment on above: Performed By: #### S ODIUM, WHOLE BLOOD ####[facility] RESPIRATORY [id number] [place] [address] [facility] Prep for Procedureon 024 Prep for Procedure [id number] Harjeet Noriega 1945 Date Provider Department Center 12/13/2023 [facility] [place] [facility] Family History Problem Relation Age of Onset Other Mother Heart failure Mother Family Status - Relation Status Age at Mother Normal [facility] HPon 12-11-2023 HP Here for a consult f or a afib ablation. Denies sob, dizziness [place] Electrophysiology Consult Note [place] [facility] - [facility] Reason for visit: atrial fibrillation 12/11/23 Pt here for discussion about ablation. HPI: Harjeet Noriega is a 78 y.o. year old with [...] on file Intimate Partner Violence: Unknown (08/13/2023) [place] Safety & Environment Fear of Current or Ex-Partner: Not on file Emotionally Abused: Not on file Physically Abused: Not on file Sexually Abused: Not on file Physically or Sexually Abused: Not on file Depression: Not on file Housing Stability: Not on file Utilities: Not on file Allergies: No Known Allergies Weight: 126kg Visit Vitals BP 175/85 Ht 1.803 m (5' 11 ) Wt 126 kg (278 lb) SpO2 93% BMI 38.77 kg/m??? Smoking Status Former BSA 2.51 m??? Meds: Current Outpatient Medications on File Prior to Visit Medication Sig Dispense Refill amiodarone (Pacerone) 200 mg tablet Take 2 tablets (400 mg) by mouth in the morning and at bedtime for 14 days, THEN 1 tablet (200 mg) in the morning. (Patient taking differently: Take 200mg once a day) 146 tablet 0 Eliquis 5 mg tablet TAKE 1 TABLET (5 MG) BY MOUTH IN THE MORNING AND BEFORE BEDTIME ferrous sulfate 325 (65 Fe) MG EC tablet Take 65 mg of iron by mouth with breakfast, with lunch, and with evening meal. Do not crush, chew, or split. metoprolol succinate XL (Toprol-XL) 25 mg 24 hr tablet Take 25 mg by mouth in the morning. RABEprazole (Aciphex) 20 mg EC tablet TAKE 1 TABLET BY MOUTH EVERY DAY FOR 100 DAYS valsartan-hydrochloroth iazide (Diovan-HCT) 320-25 mg tablet Take 1 tablet by mouth in the morning. No current facility-administered medications on file prior to visit. ROS: Review of Systems Neurological: Positive for headaches. All other systems [...] , THYROID PEROXIDASE AB , BNP EKG: Encounter Date: 10/22/23 ECG 12 lead Result Value Ventricular Rate 60 Atrial Rate 258 QRS DURATION 160 QT Interval 508 QTC CALCULATION(BAZETT) 508 R-[place] -38 T Wave [place] 116 Impression Atrial fibrillation Left axis deviation Non-specific intra-ventricular conduction block Left ventricular hypertrophy with repolarization abnormality ( R in aVL , [place] product ) Abnormal ECG When compared with ECG of 22-OCT-2023 09:56, (unconfirmed) Afib persists Confirmed by Nasir Yadav ([id number]) on 10/23/2023 8:43:15 AM Echo: 08/23/2023 Stress test: Danilo (more content not included)... Normal [facility] Office Visiton 12-11-2023 Follow-up visit [id number] Jose A Noriega 1945 Date Provider Department Center 12/11/2023 NASIR JACOB [facility] Family History Problem Relation Age of Onset Other Mother Heart failure Mother Family Status - Relation Status Age at Mother Level of Service:32362 [place] OFFICE/OUTPATIENT ESTABLISHED LOW MDM 20 MIN Normal [facility] Abstracton 12-03-2023 Abstract [id number] Jose A Noriega 1945 M Date Provider Department Center 12/03/2023 NASIR JACOB [facility] CARD Malik Rios Family History Problem Relation Age of Onset Other Mother Heart failure Mother Family Status - Relation Status Age at Mother Normal [facility] ANESon 10-22-2023 ANES --- Attestation signed by Nasir Yadav MD at [...] an additional personal documentation from me. Patient: Harjeet Noriega Procedure Information Date/Time: 10/22/23 1100 Procedure: Cardioversion - to be done in 4 weeks Location: [facility] HOLDING ROOM / [facility]ASC[facility] (Cath) Providers: Nasir Yadav [...] discussed with attending. Additional Equipment Requests Normal [facility] HPon 10-22-2023 HP --- Attestation signed by Nasir Yadav MD at [...] documentation from me. History Of Present Illness Harjeet Noriega is a 78 y.o. year old with [...] MOUTH EVERY DAY FOR 100 DAYS 10/22/2023 valsartan-hydrochloroth iazide (Diovan-HCT) 320-25 mg tablet Take 1 tablet [...] Robert Noriega MD PGY-4 Cardiology Fellowship Program [facility] Pager # [phone] [facility] NURSNOTEon 10-22-2023 NURSNOTE RN educated pt on d/ c instructions. RN encouraged pt to voice any questions or concerns. Pt verbalizes no questions or concerns at this time. Pt was wheeled off of unit with all of belongings. [facility] Orders Onlyon 10-22-2023 Orders Only [id number] Jose A Noriega 1945 M Date Provider Department Center 10/22/2023 NASIR JACOB [facility] CARD [place] Family History Problem Relation Age of Onset Other Mother Heart failure Mother Family Status - Relation Status Age at Mother [facility] Prep for Procedureon 024 Prep for Procedure [id number] Harjeet Noriega 1945 M Date Provider Department Center 10/05/2023 NASIR JACOB [facility] Family History Problem Relation Age of Onset Other Mother Heart failure Mother Family Status - Relation Status Age at Mother Normal [facility] Office Visiton 09-18-2023 Follow-up visit [id number] Jose A Noriega 1945 M Date Provider Department Center 09/18/2023 NASIR JACOB [facility] Family History Problem Relation Age of Onset Other Mother Heart failure Mother Family Status - Relation Status Age at Mother Level of Service:98091 [place] OFFICE/OUTPATIENT NEW MODERATE MDM 45 MINUTES Normal [facility] MRI LSPINE WO CONon 09-29-19 21 MRI LSPINE WO CON EXAMINATION: MRI LSP INE WO CON HISTORY: Spondylosis without myelopathy , [...] by: JOE VIVAS Date: 2020-09-28 09:11 Normal [facility] US ABD AORTA SCREENINGon ABD AORTA SCREENING EXAM: US ABD AORTA [...] authenticated by: PHILLY SHAW Date: 2020-03-26 10:15 Normal [facility] Vital Signs Date Time Vital Sign Value Performing Clinician Kelly medina 03-06-2024 08:20-0500 Body height 180.3 cm Luis Talavera MEDICINE TECH Work Phone: [facility] 03-06-2024 08:20-0500 Body mass index (BMI) [Ratio] 38.63 kg/m2 Luis Talavera MEDICINE TECH Work Phone: [facility] 03-06-2024 08:20-0500 Body weight 125.65 kg Luis Talavera MEDICINE TECH Work Phone: [facility] 03-06-2024 08:20-0500 Diastolic blood pressure 70 mm[Hg] Luis Talavera MEDICINE TECH Work Phone: [facility] 03-06-2024 08:20-0500 Heart rate 57 /min Luis Talavera MEDICINE TECH Work Phone: [facility] 03-06-2024 08:20-0500 SaO2% (BldA) [Mass fraction] 93 % Luis Talavera MEDICINE TECH Work Phone: [facility] 03-06-2024 08:20-0500 Systolic blood pressure 152 mm[Hg] Luis Talavera MEDICINE TECH Work Phone: [facility] Encounters Encounter Date Encounter Type Care Provider Facility Start: 03-06-2024 End: 03-06-2024 Bamboo flowsheet Luis Talavera MEDICINE TECH [facility] Start: 03-06-2024 End: 03-06-2024 Bamboo flowsheet Luis Talavera MEDICINE TECH Work Phone: [facility] [address] Start: 03-06-2024 End: 03-06-2024 Office outpatient visit 25 minutes Luis Talavera MEDICINE TECH Work Phone: [facility] [address] Comment on above: Lumbar facet arthrop athy (Primary Dx); Spinal stenosis of lumbar region, unspecified whether neurogenic claudication present; Radiculopathy, lumbosacral region; Encounter for medication monitoring; Nocturnal leg cramps; Polyneuropathy Start: 03-06-2024 End: 03-06-2024 ambulatory LUIS SADAF Not Available Start: 02-06-2024 End: 02-06-2024 [facility] Start: 01-18-2024 End: 01-18-2024 ambulatory XIOMARA SALINAS [facility] Start: 01-16-2024 End: 01-16-2024 ambulatory NANETTE MARTINEZ Not Available Start: 12-19-2023 ambulatory [facility] Start: 12-19-2023 End: 12-19-2023 ambulatory [facility] Start: 12-12-2023 End: 12-12-2023 ambulatory LUIS SADAF Not Available Start: 12-11-2023 End: 12-11-2023 ambulatory [facility] Start: 10-22-2023 ambulatory [facility] Start: 10-22-2023 End: 10-22-2023 ambulatory [facility] Start: 10-17-2023 End: 10-17-2023 ambulatory DUSTYKASSIDYSARAH MARTINEZ Not Available Start: 09-18-2023 End: 09-18-2023 ambulatory [facility] Start: 09-17-2023 End: 09-17-2023 ambulatory LUIS TALAVERA Not Available Start: 08-30-2023 End: 08-30-2023 ambulatory FELIX PRESLEY Not Available Start: 08-29-2023 End: 08-29-2023 ambulatory LAITH Duong GWEN Not Available Start: 08-16-2023 End: 08-16-2023 ambulatory FELIX PRESLEY Not Available Start: 08-10-2023 End: 08-10-2023 ambulatory ARMANDO BRANHAM Not Available Start: 08-02-2023 End: 08-02-2023 ambulatory FELIX PRESLEY Not Available Start: 08-01-2023 End: 08-01-2023 ambulatory ARMANDO BRANHAM Not Available Start: 09-28-2020 End: 09-29-2020 ambulatory SALVATORE MOYA Facility:[facility] Start: 08-03-2020 End: 08-04-2020 ambulatory NONE LISTED REQUEST Facility:[facility] Start: 07-12-2020 End: 07-13-2020 ambulatory NONE LISTED REQUEST Facility:[facility] Start: 03-26-2020 End: 03-27-[address] ARMANDO BRANHAM Facility: Plan of Treatment Date Care Activity Detail Author Start: 08-07-2024 Urine screening for protein Diabetes: Urine Protein Screening [facility] Start: 07-31-2024 Medicare Annual Wellness (AWV) Medicare Annual Wellness (AWV) [facility] Start: 04-09-2024 End: 03-06-2025 Nerve Block Nerve Block Procedures Routine Lumbar facet arthropathy Spinal stenosis of lumbar region, unspecified whether neurogenic claudication present Expected: 04/09/2024 (Approximate), Expires: 03/06/2025 [facility] Comment on above: Expected: 04/09/2024 (Approximate), Expires: 03/06/2025 Start: 04-09-2024 End: 04-09-2024 Patient encounter procedure 04/09/2024 10:00 AM EST Office Visit [facility] [address] [phone] Nanette Martinez DO [address] [place] [address] [id number] [facility] Start: 03-06-2024 End: 03-06-2025 Drugs of abuse panel - Urine by Screen method Toxicology screen, urine Lab Routine Encounter for medication monitoring Expected: 03/06/2024 (Approximate), Expires: 03/06/[address] [facility] Work Phone: Comment on above: Expected: 03/06/2024 (Approximate), Expires: 03/06/2025 Start: 03-06-2024 End: 03-06-2025 Vitamin B6 Vitamin B6 Lab Routine Polyneuropathy Expected: 03/06/2024 (Approximate), Expires: 03/06/2025 [facility] Comment on above: Expected: 03/06/2024 (Approximate), Expires: 03/06/2025 Start: 03-06-2024 End: 03-06-2024 Patient encounter procedure 03/06/2024 8:20 AM EST Office Visit [facility] [address] [phone] Luis Talavera NP [address] [phone] Lumbar facet arthropathy (Primary Dx); Spinal stenosis of lumbar region, unspecified whether neurogenic claudication present; Radiculopathy, lumbosacral region; Encounter for medication monitoring; Nocturnal leg cramps; Polyneuropathy [facility] Comment on above: Lumbar facet arthrop athy (Primary Dx); Spinal stenosis of lumbar region, unspecified whether neurogenic claudication present; Radiculopathy, lumbosacral region; Encounter for medication monitoring; Nocturnal leg cramps; Polyneuropathy Start: 10-31-2023 Hemoglobin A1c measurement Diabetes: Hemoglobin A1C [facility] Start: 08-05-1957 Glaucoma screening Diabetes: R etinopathy Screening [facility] Immunizations Immunization Date Immunization Notes Care Provider Fa cility 02-24-2023 Influenza, Seasonal, Quadrivalent, Adjuvanted Luis Talavera MEDICINE TECH Work Phone: [facility] 02-28-2022 influenza, injectabl e, quadrivalent, preservative free Luis Talavera MEDICINE TECH Work Phone: [facility] 02-08-2021 Influenza, injectabl e, Madin [place] Canine Kidney, preservative free, quadrivalent Luis Talavera MEDICINE TECH Work Phone: [facility] 05-27-2020 pneumococcal conjuga te vaccine, 13 valent Luis Talavera MEDICINE TECH Work Phone: [facility] 01-29-2020 influenza, injectabl e, quadrivalent, preservative free Luis Talavera MEDICINE TECH Work Phone: [facility] 04-25-2019 zoster vaccine recombinant S arah Talavera MEDICINE TECH Work Phone: [facility] 02-14-2019 zoster vaccine recombinant S arah Talavera MEDICINE TECH Work Phone: [facility] 02-11-2019 influenza, high dose seasonal, preservative-free Luis Talavera MEDICINE TECH Work Phone: [facility] 09-25-2018 pneumococcal conjuga te vaccine, 13 valent Luis Talavera MEDICINE TECH Work Phone: [facility] 02-03-2018 influenza, high dose seasonal, preservative-free Luis Talavera MEDICINE TECH Work Phone: [facility] 01-12-2015 seasonal influenza, intradermal, preservative free Luis Talavera MEDICINE TECH Work Phone: [facility] 04-14-2014 zoster vaccine, live Luis C arroll MEDICINE TECH Work Phone: [facility] 04-07-2014 pneumococcal polysaccharide vaccine, 23 valent Luis Talavera MEDICINE TECH Work Phone: [facility] 02-19-2014 seasonal influenza, intradermal, preservative free Luis Talavera MEDICINE TECH Work Phone: [facility] Payers Date Payer Category Payer Medicare (Managed Care) [employer] M EDICARE ADVANTAGE Member Subscriber Plan / Payer (Effective 2017-Present) Name: Harjeet Noriega Relation to Subscriber: Self Name: Harjeet Noriega Payer ID: [id number] (NAIC) Type: Not on file Address: [place] [id number] 1957 Medicare [id number] 1957 Self-pay 1945 Unknown [id number] [id number] .2.593 1945 Unknown [id number] [id number] .2.593 1945 Unknown [id number] 2.16.840.1.896871.3.579 .2.1258 1945 Unknown [id number] 2.16.840.1.265644.3.579 .2.1258 1945 Unknown [id number] 2.16.840.1.409257.3.579 .2.1258 1945 Unknown [id number] 2.16.840.1.532663.3.579 .2.125 1945 Unknown [id number] 2.16.840.1.243536.3.579 .2.125 1945 Unknown [id number] 2.16.840.1.184243.3.579 .2.125 1945 Unknown [id number] 2.16.840.1.406035.3.579 .2.1258 1945 Unknown [id number] 2.16.840.1.515494.3.579 .2.1258 1945 Unknown [id number] 2.16.840.1.388752.3.579 .2.1258 1945 Unknown [id number] 2.16.840.1.107231.3.579 .2.1259 1945 Unknown [id number] 2.16.840.1.670125.3.579 .2.1259 Unknown [id number] 2.16.840.1.451186.3.579 .2.593 Unknown [id number] [id number] .2.593 Social History Date Type Detail Facility Start: 01-16-2024 Tobacco smoking stat [facility] Ex-smoker [facility] End: 04-30-1991 History of tobacco use Current smoker [facility] End: 04-30-1991 History of tobacco use Cigarette Smoker [facility] History of tobacco use Pipe Smoker [facility] History of tobacco use Cigar Smoker [facility] Start: 01-16-2024 Tobacco use and exposure Smoke less tobacco non-user [facility] Start: 01-16-2024 End: 03-06-2024 Alcoholic beverage intake Current drinker of alcohol (finding) [facility] Start: 08-01-2023 End: 01-16-2024 History of Social function [facility] Start: 08-01-2023 End: 01-16-2024 Tobacco use panel [facility] Start: 11-05-2022 Alcohol Comment Coffee 2-3 cups per day [facility] Start: 1945 Sex assigned at Not on file [facility] Clinical Notes 09-18-2023 to 03-06-2024 Luis Talavera NP - 03/06/2024 8:20 AM ESTPatient Instructions Note Date & Type Note Facility 03-06-2024 History of Present illness Narrative Images from the original note were not included. Luis Talavera NP Chief Complaint Patient presents with Back Pain Subjective Harjeet Noriega is a 78 y.o. male. History of Present Illness The patient presents today for follow up. He denies any new symptoms or concerns since the prior neurology appointment. He had bilateral L4/L5 facet injections on 01/16/2024. These were well tolerated and reduced his back pain by approximately 50%. The patient continues to have constant low back pain (most significant on the left). Severity is 3/10 today which is tolerable. He states, it's just a soreness; no throbbing pain or anything. His back pain does not radiate to the lower extremities. He denies saddle anesthesia, bowel/bladder dysfunction, buckling of the knees, or recent falls. He denies any weakness in the lower extremities recently. He continues to have numbness in the bilateral feet and states this has not worsened since the previous appointment. He takes [place] once a day as needed for pain and tolerates the medication well. He denies any illicit drug use. At the prior appointment, labs were ordered. The patient did not complete these. He had a cardiac ablation via cardiology in November 2023. He is taking Eliquis and amiodarone for atrial fibrillation. He states, I've been pretty busy with that, and states this is why the labs were not completed. No further concerns reported. Review of Systems Constitutional: Negative for appetite change, chills, fatigue, fever and unexpected weight change. HENT: Negative for trouble swallowing and voice change. Eyes: Negative for visual change, double vision, or loss of vision Respiratory: Negative for cough, shortness of breath and wheezing. Cardiovascular: Positive for leg swelling. Negative for chest pain and palpitations. Gastrointestinal: Negative for abdominal pain, blood in stool, nausea and vomiting. Musculoskeletal: Positive for arthralgias and back pain (low back). Negative for gait problem and myalgias. Neurological: Positive for numbness (and paresthesias in the bilateral feet). Negative for dizziness, tremors, seizures, syncope, facial asymmetry, speech difficulty, weakness, light-headedness and headaches. Psychiatric/Behavioral: Negative for confusion, hallucinations and suicidal ideas. The patient is not nervous/anxious. Home Medication List amiodarone 200 MG tablet; Commonly known as: Pacerone amlodipine 2.5 MG tablet; Commonly known as: Norvasc amlodipine 5 MG tablet; Commonly known as: Norvasc apixaban 5 MG tablet; Commonly known as: Eliquis; Take 1 tablet (5 mg) by mouth in the morning and 1 tablet (5 mg) before bedtime. Blood Pressure kit; 1 Device Daily HYDROcodone-acetaminophen 5-325 MG tablet; Commonly known as: [place]; Take 1 tablet by mouth Daily 1 daily as needed for severe pain nebivolol 10 MG tablet; Commonly known as: Bystolic omeprazole [address] capsule; Commonly known as: Prilosec RABEprazole 20 MG EC tablet; Commonly known as: Aciphex; TAKE 1 TABLET BY MOUTH EVERY DAY valsartan-hydroCHLOROthiazide 320-25 MG tablet; Commonly known as: Diovan-HCT; TAKE 1 TABLET BY MOUTH EVERY DAY Past Medical History: Diagnosis Date Arthritis Back pain Diabetes mellitus (CMS/HCC) Enthesopathy of hip region 09/16/2023 Fibromyalgia 09/16/2023 GERD (gastroesophageal reflux disease) History of colon polyps Hypertension (CMS/HCC) Lipoprotein deficiency (CMS/HCC) Lumbar stenosis 09/16/2023 Lumbosacral radiculopathy 09/16/2023 Muscle spasm 09/16/2023 Myalgia 09/16/2023 Paroxysmal atrial fibrillation (CMS/HCC) SI (sacroiliac) joint dysfunction Past Surgical History: Procedure Laterality Date CARDIAC ELECTROPHYSIOLOGY STUDY AND ABLATION 12/19/2023 CARDIOVERSION 10/22/2023 COLONOSCOPY W/ POLYPECTOMY 2009 IR FACET INJ LUMB OR SAC 1ST Bilateral 12/19/2022 L4-L5 IR FACET INJ LUMB OR SAC 1ST 06/06/2023 Bilateral L4-L5 OTHER SURGICAL HISTORY 04/07/2020 Bilat Facet Blocks L4-S1 OTHER SURGICAL HISTORY Bilateral L4-L5 Facet Injections 04/13/2021, 12/19/2021, 06/27/2022 TONSILLECTOMY Family History Problem Relation Name Age of Onset Hypertension Mother Brain cancer Father Hypertension Other Social History Tobacco Use Smoking status: Former Current packs/day: 0.00 Types: Cigarettes, Cigars, Pipe Quit date: 1991 Years since quittin.8 Smokeless tobacco: Never Substance Use Topics Alcohol use: Yes Comment: Coffee 2-3 cups per day Allergies: Patient has no known allergies. Vitals: 03/06/24 0820 BP: 152/70 Pulse: 57 SpO2: 93% Body mass index is 38.63 kg/m . weight: 277 lb Neurologic exam: Mental status and general appearance: Awake and alert with unlabored respirations. Oriented to person, place, and time. Recent and remote memory are intact. Speech is clear and fluent without aphasia. Speech is non-dysarthric. Attention and concentration are normal. Fund of knowledge is appropriate for level of education. Flat affect. Pleasant. Cranial nerves: CN II: Visual acuity is normal. Visual gonzalez full to confrontation. CN III, IV, : Pupils are equal, round, and reactive to light. Extraocular movements intact. No ptosis present. CN V: Facial sensation is normal. CN VII: Full and symmetric facial movement. CN VIII: Hearing is decreased bilaterally. CN IX and X: Palate elevates symmetrically. CN XI: Shoulder shrug is normal bilaterally. CN XII: Tongue is midline without atrophy or fasciculation. Motor: RUE strength deltoid , biceps , triceps , wrist extensors , and wrist flexor strength 5/5. Banking Services Officer strength 4+/5. LUE strength deltoid , biceps , triceps , wrist extensors , and wrist flexor strength 5/5. Banking Services Officer strength 4+/5. RLE strength iliopsoas , quadriceps , tibialis anterior , plantar flexion , and dorsiflexion strength 5/5. LLE strength iliopsoas , quadriceps , tibialis anterior , plantar flexion , and dorsiflexion strength 5/5. Tone is normal. Sensory: Sensation is intact to light touch throughout all four extremities. Sensation is intact to temperature in all extremities. Reduced in the distal lower extremities. Vibratory sensation is intact in the distal extremities. Reduced at the level of the bilateral ankle and great toe. Reflexes: RUE biceps reflex 1+ , brachioradialis reflex 1+. LUE biceps reflex 1+ , brachioradialis reflex 1+. RLE knee reflex 0. LLE knee reflex 0. Coordination: Hmeroc-oe-eqgi testing normal. Rapid alternating movements are normal. Gait: Steady, slow. Review and summary of old records: Labs via [facility] on 07/18/23: Vitamin B6 88.6 (elevated; normal range is 2.1 to 21.7). Labs via [facility] on 12/13/22: Hgb A1C 6.0%. Immunofixation and protein electrophoresis unremarkable. TSH 1.79. Copper 109 (WNL). Vitamin B6 24.8 (elevated). B12 318. Lyme disease Ab negative. DRU screen negative. Urine drug screen negative EMG of the bilateral lower extremities at DRU on 11/23/22: A generalized process, such as polyneuropathy, which is severe in degree electrically and axonal loss in type. A superimposed radicular process cannot be excluded. MRI lumbar spine w/o contrast at [facility] on 09/28/20: Degenerative changes and multilevel spondylolisthesis. These findings are most significant at L3-L4 where severe central canal stenosis is observed. Foraminal stenosis at several levels. EMG of the BLE on 07/02/15: Findings consistent with bilateral S1 radiculopathies which are mild in degree electrically and more pronounced on the left. Assessment/Plan Diagnoses and all orders for this visit: Lumbar facet arthropathy MRI of the lumbar spine on 09/28/20 revealed facet degenerative changes with neural foraminal narrowing and, at L3-L4, severe central stenosis. The patient reports bilateral low back pain. He also reports chronic numbness in the bilateral feet, however, I believe this is more likely due to polyneuropathy than spinal pathology given the absence of proximal lower extremity symptoms. Bilateral L4/L5 facet injections on 01/16/24 were well tolerated and effective (> 50% pain reduction with effects historically lasting > 3 months). They improved the patient's quality of life and ability to perform daily activities. He wishes to proceed with further injections for symptom control. He has trialed physical therapy in the past. He remains active at home. PLAN: - Repeat bilateral L4/L5 facet injections are scheduled for 04/09/24. Risks including but not limited to hematoma, contrast reaction, infection, cumulative steroid dose risk, allergic reaction, and weakness have been reviewed with the patient. He verbalizes understanding and wishes to proceed - Continue hydrocodone-acetaminophen 5-325 mg once a day as needed for severe pain. OARRS reviewed - Neurosurgery evaluation has been recommended but declined by the patient, as he does not wish to pursue any surgical intervention at this time Spinal stenosis of lumbar region, unspecified whether neurogenic claudication present MRI of the lumbar spine in 2016 revealed marked stenosis at L2-L3 and L4-L5. This seems to have worsened, with MRI of the lumbar spine on 09/28/20 revealing severe spinal stenosis at L3-L4. PLAN: - See above Radiculopathy, lumbosacral region BLE EMG on 07/02/15 revealed underlying mild bilateral S1 radiculopathies (left > right). This is likely due to neural foraminal stenosis as evidenced on previous MRI. The patient denies any apparent radicular symptoms or signs/symptoms to suggest spinal cord compression recently. No lower extremity weakness is noted on clinical exam. PLAN: - The patient currently has a positive response to facet injections. Could consider epidural injections in the future if symptoms change Encounter for medication monitoring The patient is taking hydrocodone-acetaminophen for his intractable back pain. Along with facet injections, this helps to adequately control his symptoms. He attempts to limit dosing. Urine drug screen on 12/13/22 was negative. PLAN: - Repeat urine drug screen. Re-ordered today. I educated the patient on the importance of having this test completed Nocturnal leg cramps The patient has infrequent nocturnal leg cramps. He denies RLS symptoms and feels these have improved over time. May be related to lumbar radiculopathy. PLAN: - Adequate hydration and stretching exercises Polyneuropathy The patient has polyneuropathy as identified on BLE EMG from 11/23/22 (severe, axonal loss). He reports numbness in the bilateral feet (right more significant than left). He denies history of diabetes or significant alcohol use. Polyneuropathy lab evaluation on 12/13/22 was unremarkable aside from Hgb A1C in a prediabetic range (6.0%) and elevated vitamin B6 (24.8). Both of these could be contributory to the patient's symptoms. Vitamin B6 on 07/18/23 was again elevated at 88.6. PLAN: - Follow up closely with primary care provider for adequate blood glucose management - I strongly recommended the patient avoid use of SwellNoMore supplements - Recheck vitamin B6 level. Re-ordered today. I educated the patient on the importance of having this lab completed and informed him that elevated B6 levels can contribute to polyneuropathy - Fall prevention measures Red flag signs and symptoms of spinal cord compression/myelopathy have been reviewed, and the patient understands to seek emergent care in the emergency department if he develops any of these. Diagnosis and treatment options discussed in detail. All questions answered. The patient verbalizes understanding and is agreeable to the plan. Discussion in layman's terms. Follow up in the office within 3 months; sooner if needed for new or worsening symptoms. SHAHRIAR Benitez [facility] Advanced Neurology documented in this encounter [facility] 03-06-2024 Instructions Luis Talavera NP - 03/06/2024 8:20 AM EST - Check labs including urine drug screen - Next injection is scheduled for 04/09/2024 documented in this encounter [facility] 02-06-2024 Note Cardiovascular Medic [facility] SUBJECTIVE Chief Complaint Patient presents with Hypertension Harjeet Noriega is a 78 y.o. male here for follow-up. His accompanied him today. HPI PMHx: a.fib s/p ablation 11/2023, HTN, DM After he was last seen, he was resumed on amlodipine 10mg daily due to uncontrolled HTN. He reports continued high BPs at home. He has a wrist cuff. He was having daily headaches, they are now infrequent. He has chronic BLE edema, (R>L) stable. SNYDER is unchanged. Denies c/o CP, orthopnea, PND, dizziness/LH, palpitations, syncope. Patient Active Problem List Diagnosis Arthritis of right foot Backache Benign essential hypertension Depressive disorder Disturbance of skin sensation Diverticulosis of colon Encounter for drug therapy Enthesopathy of hip region Fibromyalgia Gastroesophageal reflux disease with esophagitis Lumbar radiculopathy Muscle spasm Musculoskeletal symptoms referable to limbs Myalgia Nocturnal leg cramps Paresthesia Paroxysmal atrial fibrillation (CMS/HCC) Plantar fasciitis of right foot Polyneuropathy Primary generalized (osteo)arthritis Pure hypercholesterolemia SI (sacroiliac) joint dysfunction Arthropathy of lumbar facet joint Spondylosis of lumbar region without myelopathy or radiculopathy Type 2 diabetes mellitus with other specified complication (CMS/HCC) Venous insufficiency (chronic) (peripheral) Spinal stenosis of lumbar region Past Medical History: Diagnosis Date Abnormal ECG Arrhythmia Arthritis Atrial fibrillation (CMS/HCC) Diabetes mellitus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
[2024-03-12 10:02] LABS: Amphetamine Screen Urine NEGATIVE (NEGATIVE); Benzodiazepines Screen Urine NEGATIVE (NEGATIVE); Cannabinoid Screen Urine NEGATIVE (NEGATIVE); Cocaine Screen Urine NEGATIVE (NEGATIVE); Methamphetamines Screen Urine NEGATIVE (NEGATIVE); Opiate Screen Urine POSITIVE (NEGATIVE); Phencyclidine Screen Urine NEGATIVE (NEGATIVE)
[2024-03-12 10:03] LABS: Barbiturates Screen Urine NEGATIVE (NEGATIVE); Buprenorphine Screen Urine NEGATIVE (NEGATIVE); Methadone Screen Urine NEGATIVE (NEGATIVE); Oxycodone Screen Urine NEGATIVE (NEGATIVE); Tricyclic Antidepressant Urine NEGATIVE (NEGATIVE)
[2024-03-16 21:07] LABS: Vitamin B6, Plasma 62.2 ug/L (3.4-65.2)
== END 2024-03-12 09:26 | disposition home or self-care (01) ==
LOC: LAB 09:27
PROVIDERS: PCP Internal Medicine; Visit Provider Nurse Practitioner Family
DX: Z51.81 Encounter for therapeutic drug level monitoring (principal); G62.9 Polyneuropathy, unspecified
CPT/HCPCS: 36415; 80307; 84207

== ENCOUNTER 2024-11-24 09:30 | Outpatient (OUT) | payer MEDICARE, SELFPAY ==
--- OUTSIDE RECORDS SUMMARY | 2024-11-11 05:15 | XMS_ITS | Continuity of Care Document ---
Author Organization [facility] Address [address] [place] [address] Phone Care Team Providers Care Collect On Delivery Clerk Name Role Phone Armando Branham II Primary Care Provider Jenn Poole Attending Provider + Care Teams Patient Care Team Team Status: Active Member Role Status Dates Armando Branham II MD Primary Care Provider Active Patient Care Team Team Status: Inactive Member Role Status Dates Armando Branham II MD Primary Care Provider Active Start: November 11, 2024 End: November 11, 2024 MERCEDES Granado Attending Provider Active Start: November 11, 2024 End: November 11, 2024 Chief Complaint and Reason for Visit Chief Complaint Admit Date fOLLOW UP November 11, 2024 8:43 am Reason for Visit Admit Date Low back pain November 11, 2024 8:43 am Lumbar facet arthropathy November 11, 2024 8:43am Lumbosacral radiculopathy November 11 8:43am Nocturnal leg cramps November 11, 2024 8:4 3am Polyneuropathy November 11, 2024 8:43 am Spinal stenosis of lumbar region November 112024 8:43am Allergies, Adverse Reactions, Alerts Allergen Type Severity Reaction Last Updated Verified Status No Known Allergies Allergy Unknown November 11, 2024 8:50a m Yes Active Social History Smoking Status Unknown if ever smoked Observation Status Observation Response Date of Response Legal Sex Male (finding) Sex Assigned At Male 1945 Problems Active Problems Medical Problem Onset Date Status Nocturnal leg cramps Unknown Active Lumbosacral radiculopathy Unknown Active Spinal stenosis of lumbar region Unknown Active Low back pain Unknown Active Polyneuropathy Unknown Active Lumbar facet arthropathy Unknown Active Medications Medication Status Dose Units Route Directions Qty Days St art Date Stop Date End Date Instructions Adherence Hydrocodone -Acetaminop hen 5-325 mg tablet Discont inued 1 TAB PO Daily as needed for pain September 29, 2024 September 29, 2024 1:37p m Hydrocodone -Acetaminop hen 5-325 mg tablet Active 1 TAB PO Daily as needed for pain September 29, 2024 Complies with drug therapy Vital Signs Vital Reading Result Reference Range Collection Date/Time Height 71 [in_i] November 11, 2024 8:46am Weight 127.91 kg November 11, 2024 8:46am Heart Rate 63 /min 60-100 November 11, 2024 8:46am Respiratory rate 16 /min 12-24 November 11, 2024 8:46am Oxygen saturation by Pulse oximetry 94 % 95-10 0 November 11, 2024 8:46am BP Systolic 148 mm[Hg] 100-140 November 11, 2024 8:46am BP Diastolic 88 mm[Hg] 60-100 November 11, 2024 8:46am BMI (Body Mass Index) 39.3 kg/m2 October 282024 8:46am Advance Directives Advance Directive Response Recorded Date/ Time Advance Directives No November 11 8:38am Insurance Providers Guarantor Harjeet Noriega Address [address] [place] [id number] Contact Info. Home Phone: Payer Policy Id Subscriber's Name Subscriber Id Effectiv e Date Expiration Date [employer] [facility] [id number] Harjeet Noriega [id number] Encounters Encounter Location(s) Arrival/Admit Date Discharge/Depart Date Provider(s) Departed Physician/Prov ider Office Visit -[facility] Neurology [place] November 11, 2024 8:43am November 11, 2024 9:14am MERCEDES Granado Recent Diagnosis Onset Date Admit Date Low back pain Unknown November 11, 2024 8:43am Lumbar facet arthropathy Unknown November 112024 8:43am Lumbosacral radiculopathy Unknown October 282024 8:43am Nocturnal leg cramps Unknown November 11, 2024 8:43am Polyneuropathy Unknown November 11, 2024 8:43am Spinal stenosis of lumbar region Unknown November 11, 2024 8:43am Assessments Diagnosis Onset Date Resolution Status Admit Date Low back pain chronic November 11, 2024 8:43am Lumbar facet arthropathy chronic November 11, 2024 8:43am Lumbosacral radiculopathy chronic November 11, 2024 8:43am Nocturnal leg cramps chronic November 11, 2024 8:43am Polyneuropathy chronic November 11, 2024 8:43am Spinal stenosis of lumbar region chr onic November 11, 2024 8:43am Plan of Treatment Author Jenn Poole [facility] Authored November 11, 2024 9:02 am See above. MRI of the lumbar spine on 09/28/20 revealed facet degenerative changes with neural foraminal narrowing and, at L3-L4, severe central stenosis. The patient reports bilateral low back pain. He also reports chronic numbness in the bilateral feet, however, I believe this is more likely due to polyneuropathy than spinal pathology given the absence of proximal lower extremity symptoms. Bilateral L4/L5 facet injections on 04/09/2024 were again well tolerated and effective (around 50% pain reduction with effects lasting > 3 months). They improved the patient's quality of life and ability to perform daily activities. He wishes to proceed with further injections for symptom control. He has trialed physical therapy in the past. He remains active at home and believes his symptoms are well controlled on the current regimen. PLAN: - Repeat bilateral L4/L5 facet injections are scheduled for 07/29/2024. Risks including but not limited to hematoma, contrast reaction, infection, cumulative steroid dose risk, reduced bone mineral density, allergic reaction, and weakness have been reviewed with the patient. He verbalizes understanding and wishes to proceed - I encouraged the patient to discuss possible DEXA scan screenings with his primary care provider - Continue hydrocodone-acetaminophen 5-325 mg tablet - take 1 tablet once daily as needed for severe pain. OARRS reviewed BLE EMG on 07/02/15 revealed underlying mild bilateral S1 radiculopathies (left > right). This is likely due to neural foraminal stenosis as evidenced on previous MRI. The patient denies any apparent radicular symptoms or signs/symptoms to suggest spinal cord compression recently. No focal weakness is noted on clinical exam. PLAN: - The patient continues to report a positive response to facet injections. Could consider epidural injections in the future if symptoms change BLE EMG on 07/02/15 revealed underlying mild bilateral S1 radiculopathies (left > right). This is likely due to neural foraminal stenosis as evidenced on previous MRI. The patient denies any apparent radicular symptoms or signs/symptoms to suggest spinal cord compression recently. No focal weakness is noted on clinical exam. PLAN: - The patient continues to report a positive response to facet injections. Could consider epidural injections in the future if symptoms change The patient has infrequent nocturnal leg cramps. He denies RLS symptoms and feels these have improved over time. May be related to lumbar radiculopathy or polyneuropathy. 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 The patient reports numbness in the bilateral feet (right more significant than left). He denies history of diabetes or significant alcohol use. Polyneuropathy lab evaluation on 12/13/22 was unremarkable aside from hemoglogbin A1C in a prediabetic range (6.0%) and elevated vitamin B6. Both of these could be contributory to the patient's symptoms. Vitamin B6 level on 03/12/24 had normalized. PLAN: - Follow up closely with primary care provider for adequate blood glucose management - Limit/avoid use of SwellNoMore supplements which contain high levels of vitamin B6 - Fall prevention measures Future Tests Future scheduled test information is unavailable Pending Tests Pending diagnostic test information is unavailable Future Visits Future appointment information is unavailable Referrals to Other Providers Referral information is unavailable Future Procedures Future procedure information is unavailable Future Medications Future medication information is unavailable Patient Instructions Instruction Admit Date Low back pain in adults November 11, 2024 8:43am
--- OUTSIDE RECORDS SUMMARY | 2024-11-25 10:03 | XMS_ITS | Encounter Summary ---
Author Organization [facility] Address [address] [place] [address] Care Team Prov[address] Care Court Magistrate Name Role Phone Armando Branham MD Unavailable [phone] Armando Branham MD Primary Care Provider [phone] Jenn Poole ACCOUNTING CLERK Unavailable Unavailable Erick Martinez DO Unavailable [phone] Encounter Details Date Type Department Care Team (Late st Contact Info) Description 12/20/2022 Abstract [facility] [place] [facility] [address] [facility] [address] [place] [phone] Armando Branham MD [address] [facility] [facility] [address] [place], [place] [id number] Social History Tobacco Use Types Packs/Day Years Used Date Smoking Tobacco: Former Cigarettes Q uit: 1991 Pipe Cigars Smokeless Tobacco: Never Alcohol Use Standard Drinks/Week Comments Not Currently 0 (1 standard drink = 0.6 oz pur e alcohol) Coffee 2-3 cups per day Sex and Gender Information Value Date Recorded Sex Assigned at Not on file Legal Sex Male 6:48 PM EDT Gender Identity Not on file Sexual Orientation Not on file documented as of this encounter Plan of Treatment Upcoming Encounters Date Type Department Care Team (Late st Contact Info) Description 12/03/2024 9:30 AM EDT Office Visit [facility] [place] [facility] [address] [facility] [address] [place] [phone] Armando Branham MD [address] [facility] [facility] [address] [place], [place] [id number] documented as of this encounter Visit Diagnoses Not on filedocumented in this encounter Care Teams Court Magistrate Relationship Specialty Start Date End Date Armando Branham MD [address] [facility] [address] [place] [address] PCP - [employer] 04/30/17 Armando Branham MD [address] [facility] [address] [place] [address] PCP - General Internal Medicine 10/25/22 Jenn Poole NP [address] [facility] [address] [place] [address] Nurse Practitioner Neurology 07/22/24 Erick Martinez DO [address] [place] [address] Referring Physician Neurology 07/22/24 documented as of this encounter
--- OUTSIDE RECORDS SUMMARY | 2024-11-25 10:03 | XMS_ITS | Encounter Summary ---
Author Organization [facility] Address [address] [place] [address] Care Team Providers Care Clinic Office Assistant Name Role Phone Armando Branham MD Unavailable [phone] Armando Branham MD Primary Care Provider [phone] Jenn Poole BRAKE LINER Unavailable Unavailable Erick Martinez DO Unavailable [phone] Encounter Details Date Type Department Care Team (Late st Contact Info) Description 12/13/2022 Abstract [facility] [place] [facility] [address] [facility] [address] [place] [phone] Armando Branham MD [address] [place] [facility] [address] [place], [place] [id number] Social History Tobacco Use Types Packs/Day Years [...] AM EDT Office Visit [facility] [place] [facility] [address] [facility] [address] [place] [phone] Armando Branham MD [address] [facility] [address] [place], [place] [id number] documented as of this encounter Visit Diagnoses Not on filedocumented in this encounter Care Teams Clinic Office Assistant Relationship Specialty Start Date End Date Armando Branham MD [address] [facility] [address] [place] [address] PCP - [employer] 04/30/17 Armando Branham MD [address] [facility] [address] [place] [address] PCP - General Internal Medicine 10/25/22 Jenn Poole NP [address] [facility] [address] [place] [address] Nurse Practitioner Neurology 07/22/24 Erick Martinez DO [address] [place] [address] Referring Physician Neurology 07/22/24 documented as of this encounter
--- OUTSIDE RECORDS SUMMARY | 2024-11-25 10:03 | XMS_ITS | Encounter Summary ---
Author Organization [facility] Address [address] [place] [address] Care Team Providers Care Promotions Assistant Name Role Phone Armando Branham MD Unavailable [phone] Armando Branham MD Primary Care Provider [phone] Jenn Poole CONCRETE MASON Unavailable Unavailable Erick Martinez DO Unavailable [phone] Encounter Details Date Type Department Care Team (Late st Contact Info) Description 06/07/2023 Abstract [facility] [place] [facility] [address] [facility] 110 [place] [phone] Armando Branham MD [address] [place] [facility] [address] [place], [place] [id number] Social History Tobacco Use Types Packs/Day Years [...] AM EDT Office Visit [facility] [place] [facility] [address] [facility] [address] [place] [phone] Armando Branham MD [address] [place] [facility] [address] [place], [place] [phone] documented as of this encounter Visit Diagnoses Not on filedocumented in this encounter Care Teams Promotions Assistant Relationship Specialty Start Date End Date Armando Branham MD [address] [facility] [address] [place] [address] PCP - [employer] 04/30/17 Armando Branham MD [address] [facility] [address] [place] [address] PCP - General Internal Medicine 10/25/22 Jenn Poole NP [address] [place] [facility] [address] [place] [address] Nurse Practitioner Neurology 07/22/24 Erick Martinez DO [address] [place] [address] Referring Physician Neurology 07/22/24 documented as of this encounter
--- OUTSIDE RECORDS SUMMARY | 2024-11-25 10:03 | XMS_ITS | Encounter Summary ---
Author Organization [facility] Address [address] [place] [address] Care Team Providers Care Panel Wirer Name Role Phone Armando Branham MD Unavailable [phone] Armando Branham MD Primary Care Provider [phone] Jenn Poole DERMATOLOGIST AND DERMATOPATHOLOGIST Unavailable Unavailable Erick Martinez DO Unavailable [phone] Encounter Details Date Type Department Care Team (Late st Contact Info) Description 11/24/2022 Abstract [facility] [place] [facility] [address] [facility] 110 [place] [phone] Armando Branham MD [address] [place] [facility] [address] [place], [place] [phone] Social History Tobacco Use Types Packs/Day Years [...] AM EDT Office Visit [facility] [place] [facility] [address] [facility] [address] [place] [phone] Armando Branham MD [address] [place] [facility] [address] [place], [place] [phone] documented as of this encounter Visit Diagnoses Not on filedocumented in this encounter Care Teams Panel Wirer Relationship Specialty Start Date End Date Armando Branham MD [address] [facility] [address] [place] [address] PCP - [employer] 04/30/17 Armando Branham MD [address] [facility] [address] [place] [address] PCP - General Internal Medicine 10/25/22 Jenn Poole NP [address] [place] [facility] [address] [place] [address] Nurse Practitioner Neurology 07/22/24 Erick Martinez DO [address] [place] [address] Referring Physician Neurology 07/22/24 documented as of this encounter
--- OUTSIDE RECORDS SUMMARY | 2024-11-25 10:03 | XMS_ITS | Encounter Summary ---
Author Organization [facility] Address [address] [place] [address] Care Team Providers Care Video Presentation Operator Name Role Phone Armando Branham MD Primary Care Provider [phone] Reason for Visit * Reason Comments Med Refill Encounter Details Date Type Department Care Team (Late st Contact Info) Description 11/24/[address] [facility] [address] [place] [address] Sonia Rich, INFORMATION SYSTEMS SECURITY MANAGER [address] [place] [phone] Essential hypertension Social History Tobacco Use Types Packs/Day Years Used Date Smoking Tobacco: Former Cigarettes Q uit: 1991 Passive Smoke Exposure: Past Smokeless Tobacco: Former Alcohol Use Standard Drinks/Week Comments Not Currently 0 (1 standard drink = 0.6 oz pur e alcohol) [place] Safety & Environment Answer Date Rec orded Fear of Current or Ex-Partner Not on file Emotionally Abused Not on file 08/13/2023 Physically Abused Not on file 08/13/2023 Sexually Abused Not on file 08/13/2023 Physically or Sexually Abused Not on file Sex and Gender Information Value Date Recorded Sex Assigned at Not on file Legal Sex Male 10:57 PM EDT Gender Identity Not on file Sexual Orientation Not on file documented as of this encounter Plan of Treatment Not on file documented as of this encounter Visit Diagnoses Diagnosis Essential hypertension Unspecified essential hypertension documented in this encounter Care Teams Video Presentation Operator Relationship Specialty Start Date End Date Armando Branham MD PCP - General Internal Medicine 09/17/23 documented as of this encounter
--- OUTSIDE RECORDS SUMMARY | 2024-11-25 10:03 | XMS_ITS | Encounter Summary ---
Author Organization [facility] Address [address] [place] [address] Care Team Providers Care Associate Store Manager Name Role Phone Armando Branham MD Unavailable Armando Branham MD Primary Care Provider [phone] Jenn Poole BENCH EXAMINER Unavailable Unavailable Erick Martinez DO Unavailable [phone] Encounter Details Date Type Department Care Team (Late Contact Info) Description 11/11/2024 Abstract [facility] [place] [facility] [address] [facility] [address] [place] [address] Armando Branham MD 112 [facility] 110 [place] [address] Social History Tobacco Use Types Packs/Day Years Used Date Smoking Tobacco: Former Cigarettes Q uit: 1991 Pipe Cigars Smokeless Tobacco: Never Alcohol Use Standard Drinks/Week Comments Yes 0 (1 standard drink = 0.6 oz pur e alcohol) Coffee 2-3 cups per day PHQ-2 Answer Date Recorded Patient Health Questionnaire-2 Score 0 09/09/2024 Sex and Gender Information Value Date Recorded Sex Assigned at Not on file Legal Sex Male 6:48 PM EDT Gender Identity Not on file Sexual Orientation Not on file documented as of this encounter Plan of Treatment Upcoming Encounters Date Type Department Care Team (Late Contact Info) Description 12/03/2024 9:30 AM EDT Office Visit [facility] [place] [facility] [address] [facility] [address] [place] [address] Armando Branham MD [address] [facility] [address] [place] [address] documented as of this encounter Visit Diagnoses Not on filedocumented in this encounter Care Teams Associate Store Manager Relationship Specialty Start Date End Date Armando Branham MD [address] [facility] [address] [place] [address] PCP - [employer] 04/30/17 Armando Branham MD [address] [facility] [address] [place] [address] PCP - General Internal Medicine 10/25/22 Jenn Poole NP [address] [facility] [address] [place] [address] Nurse Practitioner Neurology 07/22/24 Erick Martinez DO [address] [place] [address] Referring Physician Neurology 07/22/24 documented as of this encounter
--- OUTSIDE RECORDS SUMMARY | 2024-11-25 10:03 | XMS_ITS | Clinical Summary ---
Author Organization [facility] Healthcare Address [address] [place] [address] Care Team Providers Care Fire Department Marine Engineer Name Role Phone Armando Branham MD Unavailable [phone] Armando Branham MD Primary Care Provider Jenn Poole NP Unavailable Unavailable Erick Martinez DO Unavailable [phone] Allergies No known active allergies Medications amLODIPine (Norvasc) 5 MG tabletIndication s:Essential (primary) hypertension TAKE 1 TABLET BY MOUTH EVERY DAY 100 DAYS 90 tablet 5 09/17/19 24 Active omeprazole (PriLOSEC) [address] capsule Take 40 mg by mouth in the morning. Take before meals. 12/19/19 24 Active nebivolol (Bystolic) 10 MG tablet Take 10 mg by mouth in the morning. 02/06/20 24 Active apixaban (Eliquis) 5 MG tabletIndication s:Paroxysmal atrial fibrillation (HCC) Take 1 tablet (5 mg) by mouth in the morning and 1 tablet (5 mg) before bedtime. 60 tablet 11 08/14/19 25 Active potassium chloride CR (Klor-Con M10) 10 MEQ ER tabletIndication s:Bilateral lower extremity edema TAKE 1 TABLET BY MOUTH ONCE EVERYDAY *DO NOT CRUSH OR CHEW/TAKE WITH FUROSEMIDE* 90 tablet 1 10/03/19 25 Active furosemide (Lasix) 20 MG tabletIndication s:Bilateral lower extremity edema TAKE 1 TABLET BY MOUTH DAILY NEEDED (SWELLING) 100 tablet 3 10/03/19 25 Active RABEprazole (Aciphex) 20 MG EC tabletIndication s:Gastro-esophag eal reflux disease with esophagitis Take 1 tablet (20 mg) by mouth Daily 100 tablet 3 10/16/19 25 Active valsartan-hydroC HLOROthiazide (Diovan-HCT) 320-25 MG tabletIndication s:Essential (primary) hypertension TAKE 1 TABLET BY MOUTH EVERY DAY 90 tablet 3 11/26/19 25 Active valsartan-hydroC HLOROthiazide (Diovan-HCT) 320-25 MG tabletIndication s:Essential (primary) hypertension Take 1 tablet by mouth Daily 90 tablet 5 09/19/19 24 025 Discontinued Active Problems Problem Noted Date Diagnosed Date Bilateral lower extremity edema 09/09/2024 Impaired fasting glucose 05/21/2024 Fibromyalgia 09/16/2023 Musculoskeletal symptoms referable to limbs 08/28 Myalgia 09/16/2023 Lumbosacral radiculopathy 09/16/2023 Overview (10/15/2023): BLE EMG in 06/2015 revealed underlying mild bilateral S1 radiculopathies (left > right). This is likely due to lumbar stenosis as evidenced on previous MRI. No obvious radicular symptoms or signs/symptoms to suggest spinal cord compression aside from subjective lower extremity weakness. Strength is normal on clinical exam. - PLAN: - The patient currently has a positive response to facet injections, though we may consider epidural injections in the future as indicated. Enthesopathy of hip region 09/16/2023 Backache 09/16/2023 Muscle spasm 09/16/2023 Disturbance of skin sensation 09/16/2023 SI (sacroiliac) joint dysfunction 09/16/2023 Radiculopathy, lumbosacral region 09/16/2023 Overview (09/16/2023): BLE EMG in 06/2015 revealed underlying mild bilateral S1 radiculopathies (left > right). This is likely due to lumbar stenosis as evidenced on previous MRI. No obvious radicular symptoms or signs/symptoms to suggest spinal cord compression aside from subjective lower extremity weakness. Strength is normal on clinical exam. - PLAN: - The patient currently has a positive response to facet injections, though we may consider epidural injections in the future as indicated. Lumbar facet arthropathy 09/16/2023 Overview (09/16/2023): Lumbar spine MRI in 09/2020 revealed facet degenerative changes with neural foraminal narrowing and severe central stenosis. The patient has left low back pain without radiation. Bilateral L4/L5 facet injections on 06/06/23 were effective for symptom management (> 50% pain reduction; historically lasting > 3 months). The patient has generally responded well to injections over his treatment course. They improve his quality of life and functionality. He has trialed physical therapy in the past. He remains active at home. - PLAN: - Repeat bilateral L4/L5 facet injections scheduled for 09/25/23. Risks including but not limited to hematoma, contrast reaction, infection, cumulative steroid dose risk, allergic reaction, and weakness were discussed with the patient. The patient verbalizes understanding and wishes to proceed. - I have recommended neurosurgery evaluation given the severe spinal stenosis/degenerative changes identified on MRI and subjective weakness. The patient has politely declined referral, as he is unwilling to undergo surgery at this time. He understands the potential risks associated with degenerative spine changes including spinal cord compression and permanent disability. - Red flag symptoms were discussed, and the patient knows to seek emergent care in the ED should these arise. - Continue hydrocodone-acetaminophen as needed for severe pain. Risk for addiction, abuse/misuse, and overdose have been discussed. The patient does not ask for early refills. - He is also taking Sulindac and tizanidine - Patient declined physical therapy Encounter for drug therapy 09/16/2023 Overview (09/16/2023): See above. Facet arthropathy, lumbar 09/16/2023 Nocturnal leg cramps 09/16/2023 Overview (09/16/2023): It is my impression that patient experiences intermittent nocturnal leg cramps. He denies RLS symptoms and feels these have improved. He attributes symptoms to being positional. PLAN: - Adequate hydration and stretching exercises discussed - Continue daily multivitamin Paresthesia 09/16/2023 Overview (09/16/2023): The patient reports intermittent numbness in the toes bilaterally. This started within the past 6 months. He denies history of DM or excessive alcohol use. PLAN: - EMG of the BLE to assess for a potentially causative process as well as the severity. 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 He reports numbness in the bilateral feet (right > left). No reported history of DM or significant alcohol use. Polyneuropathy lab evaluation on 12/13/22 was unremarkable aside from Hgb A1C in a prediabetic range (6.0%) and elevated vitamin B6 (24.8). Both of these could be contributory to the patient's symptoms. PLAN: - I advised the patient to follow closely with his PCP for adequate blood glucose control to prevent nerve damage - Recheck vitamin B6 level - I advised the patient to caution the use of SwellNoMore supplements which contain B6 given the elevated B6 lab value - Fall prevention Paroxysmal atrial fibrillation 08/10/2023 Venous insufficiency (chronic) (peripheral) 07/29 Arthritis of right foot 11/02/2022 Plantar fasciitis of right foot 11/02/2022 Benign essential hypertension 10/23/2022 Depressive disorder 10/23/2022 Diverticulosis of colon 10/23/2022 Gastroesophageal reflux disease with esophagitis 10/23/2022 Lumbar radiculopathy 10/23/2022 Spinal stenosis of lumbar re gion without neurogenic claudication 10/23/2022 Primary generalized (osteo)arthritis 10/23/2022 Pure hypercholesterolemia 10/23/2022 Spondylosis of lumbar region without myelopathy or radiculopathy 10/23/2022 Resolved Problems Problem Noted Date Diagnosed Date Resolved Date Type 2 diabetes mellitus wit h other specified complication 08/01/2023 05/21/2024 Encounters Date Type Department Care Team Description 11/25/2024 Refill [facility] [address] [facility] [address] [place] [phone] Armando Branham MD Essential (primary) hypertension 11/11/2024 Abstract [facility] [address] [facility] [address] [place] [phone] Armando Branham MD 10/15/2024 Telephone [facility] [address] [facility] [address] [place] [address] Armando Branham MD Med Refill 10/11/2024 [facility]ill [facility] [address] [facility] [address] [place] [address] Armando Branham MD Gastro-esophageal reflux disease with esophagitis 10/02/2024 [facility] [address] [facility] [address] [place] [address] Ermelinda Tapia, [place] Bilateral lower extremity edema 10/02/2024 [facility] [address] [facility] [address] [place] [address] Ermelinda Tapia, [place] Bilateral lower extremity edema 09/09/2024 10:00 AM EDT [facility] [address] [facility] [address] [place] [address] Ermelinda Tapia, PA Benign essential hypertension (Primary Dx); Bilateral lower extremity edema 09/09/2024 Bamboo flowsheet [facility] [address] [facility] [address] [place] [address] Ermelinda Tapia, PA 09/09/2024 Travel from Last 3 Months Immunizations Immunization Administration Dates Next Due Influenza, High Dose Seasonal, Preservative Free 02/11/2019,02/03/2018 Influenza, Seasonal, Quadrivalent, Adjuvanted Influenza, injectable, MDCK, preservative free, quadrivalent 02/08/2021 Influenza, injectable, quadrivalent, preservativ e free 02/28/2022,01/29/2020 Influenza, seasonal, intradermal, preservative f ree 01/12/2015,02/19/2014 Pneumococcal Conjugate PCV 13 05/27/2020, 019 Pneumococcal Polysaccharide PPSV23 04/07/2014 Zoster, Recombinant 04/25/2019,02/14/2019 Zoster, live 04/14/2014 Family History Medical History Relation Name Comments Brain cancer Father Hypertension Mother Hypertension Other Relation Name Status Comments Brother 1 Alive Brother 2 Alive Daughter 1 Alive Daughter 2 Alive Daughter 3 Alive Father Mother Other Sister Alive Son 1 Alive Son 2 Alive Social History Tobacco Use Types Packs/Day Years Used Date Smoking Tobacco: Former Cigarettes Q uit: 1992 Pipe Cigars Smokeless Tobacco: Never Tobacco Cessation:Counseling Given: Not Answered Alcohol Use Standard Drinks/Week Comments Yes 0 (1 standard drink = 0.6 oz pur e alcohol) Coffee 2-3 cups per day PHQ-2 Answer Date Recorded Patient Health Questionnaire-2 Score 0 09/09/2024 Sex and Gender Information Value Date Recorded Sex Assigned at Not on file Legal Sex Male 6:48 PM EDT Gender Identity Not on file Sexual Orientation Not on file Last Filed Vital Signs Vital Sign Reading Time Taken Comments Blood Pressure 122/76 09/09/2024 10:05 AM EDT Pulse 56 09/09/2024 10:05 AM EDT Temperature - - Respiratory Rate 16 09/09/2024 10:05 AM EDT Oxygen Saturation 95% 09/09/2024 10:05 AM EDT Inhaled Oxygen Concentration - - Weight 129 kg (284 lb 3.2 oz) 09/09/2024 10:05 A M EDT Height 180.3 cm (5' 11 ) 09/09/2024 10:05 AM EDT Body Mass Index 39.64 09/09/2024 10:05 AM EDT Plan of Treatment Upcoming Encounters Date Type Department Care Team (Late st Contact Info) Description 12/03/2024 9:30 AM EDT Office Visit [facility] [address] [facility] 110 [place] [address] Armando Branham MD 112 [facility] 110 [place] [address] Health Maintenance Due Date Last Done Comments Diabetes: Retinopathy Screening 08/05/1955 Diabetes: Hemoglobin A1C 10/29/20242 025, 05/21/2024, 08/01/2023, Additional history exists Influenza Vaccine (#1) 2024 4, 02/24/2023, 02/28/2022, Additional history exists Diabetes: Urine Protein Screening 07/30/2025 025, 08/08/2023 Medicare Annual Wellness (AWV) 07/30/2025 07/30/2024 , 08/01/2023 Colonoscopy Discontinued 02/01/2015 Colorectal Cancer Screening Discontinued Pneumococcal Vaccine: 65+ Years Completed 05/27/2020, 09/25/2018, 04/07/2014 CT Colonography Discontinued FIT-DNA Discontinued FIT Discontinued FOBT Discontinued Sigmoidoscopy Discontinued Procedures Procedure Name Priority Date/Time Associated Diagnosis Comments POCT GLYCOSYLATED HEMOGLOBIN (HGB A1C) Routine 07/30/2024 9:20 AM EDT Type 2 diabetes mellitus with other specified complication, without long-term current use of insulin (HCC) MICROALBUMIN / CREATININE URINE RATIO Routine 07/30/2024 9:11 AM EDT Type 2 diabetes mellitus with other specified complication, without long-term current use of insulin (HCC) COLONOSCOPY Routine 02/01/2015 12:00 PM EDT from Last 3 Months or Most Recently Relevant to Health Maintenance Results * (ABNORMAL) POCT glycosylated hemoglobin (Hb A1C) docked device (07/30/2024 9:20 AM EDT) Hemoglobin A1C 6.1 Blood Venous blood specimen / Unknown 07/30/2024 9:20 AM EDT Ángela Rausch NP POINT OF CARE TEST ENTER/JULIAN T ORDERABLES Final Result * Microalbumin / creatinine, urine ratio (07/30/2024 9:11 AM EDT) CREATININE, RANDOM URINE 168 20 - 320 mg/dL [facility] ALBUMIN, URINE 1.8 See Note: mg/dL [facility] Comment: Reference Range: Reference Range Not established ALBUMIN/CREATININE RATIO, RANDOM URINE 11 <30 mg/g creat [facility] Comment: The ADA defines abnormalities in albumin excretion as follows: Albuminuria Category Result (mg/g creatinine) Normal to Mildly increased <30 Moderately increased 30-299 Severely increased > OR = 300 The ADA recommends that at least two of three specimens collected within a 3-6 month period be abnormal before considering a patient to be within a diagnostic category. Urine Urine specimen obtained by clean catch procedure / Unknown 07/30/2024 9:11 AM EDT 07/30/2024 9:11 AM EDT Narrative [facility] - 07/31/2024 12:05 PM EDT FASTING:YES FASTING: YES Resulting Agency Comment Performing Organization Information Site ID: [id number] Name: [facility] [facility] Address: [address] [place] [address], [address] [place] [id number] Director: Dwayne Wynn MD us Ángela Rausch [facility] URINE ORDERABLES Final R esult [facility] * Colonoscopy (02/01/2015 12:00 PM EDT) Anatomical Region Laterality Modality Endoscopy 02/01/2015 12:0 0 PM EDT Narrative 02/01/2015 12:00 PM EDT PERFORMED AT [facility] LOCATION:[id number] diverticulosis/int. hemorrhoids Procedure Note CONVERSION, GENERIC - 09/14/2022 PERFORMED AT [facility] LOCATION:[id number] diverticulosis/int. hemorrhoids us Armando Branham MD ENDOSCOPY PROCEDURE ORDERABLES Final Result from Last 3 Months or Most Recently Relevant to Health Maintenance Insurance [facility] MEDICARE ADVANTAGE Care Teams Fire Department Marine Engineer Relationship Specialty Start Date End Date Armando Branham MD [address] [facility] [address] [place] [address] PCP - [employer] 04/30/17 Armando Branham MD [address] [facility] [address] [place] [address] PCP - General Internal Medicine 10/25/22 Jenn Poole NP [address] [facility] [address] [place] [address] Nurse Practitioner Neurology 07/22/24 Erick Martinez DO [address] [place] [address] Referring Physician Neurology 07/22/24
--- OUTSIDE RECORDS SUMMARY | 2024-11-25 10:03 | XMS_ITS | Encounter Summary ---
Author Organization [facility] Address [address] [place] [address] Care Team Providers Care Account Collector Name Role Phone Armando Branham MD Unavailable [phone] Armando Branham MD Primary Care Provider [phone] Jenn Poole NP Unavailable Unavailable Erick Martinez DO Unavailable [phone] Encounter Details Date Type Department Care Team (Late st Contact Info) Description 11/05/2022 Abstract [facility] [address] [facility] [address] [place] [address] Yamile Simental NP Social History Tobacco Use Types Packs/Day Years Used Date Smoking Tobacco: Former Cigarettes Q uit: 1991 Pipe Cigars Smokeless Tobacco: Never Tobacco Cessation:Counseling Given: Not Answered Alcohol Use Standard Drinks/Week Comments Not Currently [...] Description 12/03/2024 9:30 AM EDT Office Visit [facility] [address] [facility] 110 [place] [phone] Armando Branham MD 112 [facility] 110 [place], [place] [id number] documented as of this encounter Visit Diagnoses Not on filedocumented in this encounter Care Teams Account Collector Relationship Specialty Start Date End Date Armando Branham MD [address] [facility] 110 [place] [address] PCP - [employer] 04/30/17 Armando Branham MD [address] [facility] [address] [place] [address] PCP - General Internal Medicine 10/25/22 Jenn Poole NP [address] [facility] [address] [place] [address] Nurse Practitioner Neurology 07/22/24 Erick Martinez DO [address] [place] [address] Referring Physician Neurology 07/22/24 documented as of this encounter
--- OUTSIDE RECORDS SUMMARY | 2024-11-25 10:03 | XMS_ITS | Encounter Summary ---
Author Organization [facility] Address [address] [place] [address] Care Team Providers Care Steeple Jack Name Role Phone Armando Branham MD Unavailable [phone] Armando Branham MD Primary Care Provider [phone] Jenn Poole HEALTH PROMOTION EDUCATOR Unavailable Unavailable Erick Martinez DO Unavailable [phone] Encounter Details Date Type Department Care Team (Late st Contact Info) Description 02/06/2023 Orders Only [facility] [address] [facility] [address] [place] [address] A, Unknown Practice [address] [place], [place] [id number] Social History Tobacco Use Types Packs/Day Years [...] 9:30 AM EDT Office Visit [facility] [address] [facility] [address] [place] [address] Armando Branham MD [address] [facility] [address] [place] [address] documented as of this encounter Procedures Procedure Name Priority Date/Time Associated Diagnosis Comments SCANNED LABS Routine 02/06/2023 1:47 PM EDT documented in this encounter Results * SCANNED LABS (02/06/2023 1:47 PM EDT) us Unknown Practice A LAB CHG PERFORMABLES Final Re sult documented in this encounter Visit Diagnoses Not on filedocumented in this encounter Care Teams Steeple Jack Relationship Specialty Start Date End Date Armando Branham MD [address] [facility] 110 [place] [address] PCP - [employer] 04/30/17 Armando Branham MD [address] [facility] [address] [place] [address] PCP - General Internal Medicine 10/25/22 Jenn Poole NP [address] [facility] [address] [place] [address] Nurse Practitioner Neurology 07/22/24 Erick Martinez DO [address] [place] [address] Referring Physician Neurology 07/22/24 documented as of this encounter
--- OUTSIDE RECORDS SUMMARY | 2024-11-25 10:03 | XMS_ITS | Encounter Summary ---
Author Organization [facility] Address [address] [facility] [place] [address] Care Team Providers Care Workers Compensation Legal Secretary Name Role Phone Oneida Branham MD Unavailable [phone] Oneida Branham MD Primary Care Provider [phone] Jenn Poole RN CVICU Unavailable Unavailable Erick Martinez DO Unavailable [phone] Encounter Details Date Type Department Care Team (Late st Contact Info) Description 08/23/2023 Clinisync Result Encounter N[facility] External Department Unsolicited Oneida Branham MD [address] [facility] 110 [place], [place] [id number] Social History Tobacco Use Types Packs/Day Years Used Date Smoking Tobacco: Former Cigarettes Q uit: 1991 Pipe Cigars Smokeless Tobacco: Never Alcohol Use Standard Drinks/Week Comments Not Currently 0 (1 standard drink = 0.6 oz pur e alcohol) Coffee 2-3 cups per day PHQ-2 Answer Date Recorded Patient Health Questionnaire-2 Score 0 08/01/2023 Sex and Gender Information Value Date Recorded Sex Assigned at Not on file Legal Sex Male 6:48 PM EDT Gender Identity Not on file Sexual Orientation Not on file documented as of this encounter Plan of Treatment Upcoming Encounters Date Type Department Care Team (Late st Contact Info) Description 12/03/2024 9:30 AM EDT Office Visit [facility] [place] [facility] [address] [facility] 110 [place] [address] Oneida Branham MD [address] [facility] 110 [place], [place] [id number] documented as of this encounter Procedures Procedure Name Priority Date/Time Associated Diagnosis Comments CA ECHO DOPPLER COMPLETE 08/23/2023 3:50 PM EDT documented in this encounter Results * CA ECHO DOPPLER COMPLETE (08/23/2023 3:50 PM EDT) Anatomical Region Laterality Modality Other 08/23/2023 3:50 PM EDT Narrative 08/23/2023 3:51 PM EDT [address] [address] Cardiology Report Signed Patient: TOMÁS NORIEGA MR#: [id number] : 1945 Acct:[id number] Age/Sex: 78 / M ADM Date: 08/23/23 Loc: CARD Attending Dr: ONEIDA BRANHAM Ordering Physician: ONEIDA BRANHAM Date of Service: 08/23/23 Procedure(s): CA echo doppler complete Accession Number(s): [id number] cc: ONEIDA BRANHAM Patient Name: TOMÁS NORIEGA MR#: [id number] : 1945 Exam Date: 08/23/2023 Ordering Doctor: DR ONEIDA BRANHAM M.D. ECHOCARDIOGRAM REPORT PROCEDURE: CA ECHO DOPPLER COMPLETE INDICATIONS: New atrial fibrillation, hypertension COMPARISON: None. DESCRIPTION: COMPLETE ECHOCARDIOGRAM Real-time transthoracic echocardiography with 2D, M-mode, spectral and color flow Doppler performed. QUALITY: Technical quality was good. 71 , 268#, BSA 2.39, BP 124/82 LEFT VENTRICLE: Normal chamber size. Mild concentric left ventricular hypertrophy. LV EF: Global left ventricular systolic function is normal; visually estimated ejection fraction is 55 to 60%. No significant wall motion abnormalities. DIASTOLIC: Not adequately assessed due to heart rhythm. ATRIAL SEPTUM: Visually appears intact. LEFT ATRIUM: Normal chamber size. RIGHT ATRIUM: Normal chamber size. RIGHT VENTRICLE: Normal chamber size. Normal right ventricular systolic function. TRICUSPID VALVE: Normal mobility and thickness. No stenosis with mild regurgitation. Doppler studies reveal moderately (45-60) elevated right sided pressures. RVSP 48 mmHg MITRAL VALVE: Normal mobility and thickness. No evidence of mitral valve stenosis. Mild mitral annular calcification. Mild mitral regurgitation. AORTIC VALVE: Normal trileaflet appearance. Normal leaflet mobility. No evidence of aortic valve stenosis. Multifocal calcifications. No aortic regurgitation. AORTIC ROOT: Normal diameter and appearance. Ascending aorta is normal in size. PULMONIC VALVE: Normal thickness and mobility. No stenosis. Mild regurgitation. PERICARDIUM: Anterior free space; trivial effusion versus fat pad. IVC: Collapses with inspirations. IVC is normal in size. CONCLUSION: 1. Global left ventricular systolic function is normal; visually estimated ejection fraction 55 to 60% 2. Normal right ventricular size and systolic function 3. Mildly increased left ventricular wall thickness 4. Mild tricuspid regurgitation 5. Moderately elevated right ventricular systolic pressure; RVSP 48 mmHg 6. Mild mitral regurgitation 7. Mild pulmonic regurgitation 8. Anterior free space; trivial effusion versus fat pad Adult Echocardiography Procedure Report Left Ventricle LVEDD (3.7 - 5.6 cm): 4.80 cm LVESD (2.2 - 4.0 cm): 2.87 cm LVIVS thickness (0.6 - 1.2 cm): 1.53 cm LVPW thickness (0.5 - 1.0 cm): 1.23 cm LVOT Max Gradient: 2.57 mm[Hg] LVOT Area (cm2): 0.80 m/s Peak Velocity (LVOT): 0.80 m/s Mean Velocity (LVOT): 0.62 m/s LVOT Diameter 2.51 cm Left Atrium LA Volume Index (2D A2C): 34.50 ml/m2 Left Atrium Systolic Dimension: 3.76 cm Mitral Valve Mitral Valve E-Wave Peak Velocity: 0.71 m/s Right Ventricle Aorta AO Root Diam: 4.46 cm Ascending Ao Diam: 3.81 cm Aortic Valve AoV Area (Peak Junaid): 3.77 cm2, 3.77 cm2 AoV Area (VTI): 3.27 cm2, 3.27 cm2 Peak Velocity(Antegrade Flow): 1.05 m/s Peak Gradient(Antegrade Flow): 4.42 mm[Hg] Mean Velocity(Antegrade Flow): 0.82 m/s Mean Gradient(Antegrade Flow): 2.96 mm[Hg] Velocity Time Integral: 23.80 cm Tricuspid Valve Peak Velocity (Regurgitant Flow): 3.34 m/s Pulmonic Valve Peak Velocity: 0.93 m/s Peak Gradient: 3.59 mm[Hg], 3.32 mm[Hg] Right Atrium Dictated by: Malissa Allen M.D. on 08/23/2023 at 15:46 Approved by: Malissa Allen M.D. on 08/23/2023 at 15:50 Dictated By: Malissa Allen M.D. Signed By: 08/23/23 1551 DD/ 1550 TD/TT: Electrocardiograph Technician: Procedure Note Radiology, Radiologist, MD - 08/23/2023 [place] [address] Cardiology Report Signed Patient: TOMÁS NORIEGA AMR#: [id number] : 8Acct:[id number] Age/Sex: 78 / MADM Date: 08/23/23 Loc: CARD Attending Dr: ONEIDA BRANHAM Ordering Physician: ONEIDA BRANHAM Date of Service: 08/23/23 Procedure(s): CA echo doppler complete Accession Number(s): [id number] cc: ONEIDA BRANHAM Patient Name: TOMÁS NORIEGA MR#: [id number] : 1945 Exam Date: 08/23/2023 Ordering Doctor: DR ONEIDA BRANHAM M.D. ECHOCARDIOGRAM REPORT PROCEDURE: CA ECHO DOPPLER COMPLETE INDICATIONS: New atrial fibrillation, hypertension COMPARISON: None. DESCRIPTION: COMPLETE ECHOCARDIOGRAM Real-time transthoracic echocardiography with 2D, M-mode, spectral and color flow Dopplerperformed. QUALITY: Technical quality was good. 71 , 268#, BSA 2.39, BP 124/82 LEFT VENTRICLE: Normal chamber size. Mild concentric left ventricular hypertrophy. LV EF: Global left ventricular systolic function is normal; visually estimated ejection fraction is 55 to 60%. No significant wall motion abnormalities. DIASTOLIC: Not adequately assessed due to heart rhythm. ATRIAL SEPTUM: Visually appears intact. LEFT ATRIUM: Normal chamber size. RIGHT ATRIUM: Normal chamber size. RIGHT VENTRICLE: Normal chamber size. Normal right ventricularsystolic function. TRICUSPID VALVE: Normal mobility and thickness. No stenosis with mild regurgitation. Doppler studies reveal moderately (45-60) elevated rightsided pressures. RVSP 48 mmHg MITRAL VALVE: Normal mobility and thickness. No evidence of mitralvalve stenosis. Mild mitral annular calcification. Mild mitral regurgitation. AORTIC VALVE: Normal trileaflet appearance. Normal leaflet mobility.No evidence of aortic valve stenosis. Multifocal calcifications. No aortic regurgitation. AORTIC ROOT: Normal diameter and appearance. Ascending aorta is normalin size. PULMONIC VALVE: Normal thickness and mobility. No stenosis. Mild regurgitation. PERICARDIUM: Anterior free space; trivial effusion versus fat pad. IVC: Collapses with inspirations. IVC is normal in size. CONCLUSION: 1. Global left ventricular systolic function is normal; visually estimated ejection fraction 55 to 60% 2. Normal right ventricular size and systolic function 3. Mildly increased left ventricular wall thickness 4. Mild tricuspid regurgitation 5. Moderately elevated right ventricular systolic pressure; RVSP 48 mmHg 6. Mild mitral regurgitation 7. Mild pulmonic regurgitation 8. Anterior free space; trivial effusion versus fat pad Adult Echocardiography Procedure Report Left Ventricle LVEDD (3.7 - 5.6 cm): 4.80 cm LVESD (2.2 - 4.0 cm): 2.87 cm LVIVS thickness (0.6 - 1.2 cm): 1.53 cm LVPW thickness (0.5 - 1.0 cm): 1.23 cm LVOT Max Gradient: 2.57 mm[Hg] LVOT Area (cm2): 0.80 m/s Peak Velocity (LVOT): 0.80 m/s Mean Velocity (LVOT): 0.62 m/s LVOT Diameter 2.51 cm Left Atrium LA Volume Index (2D A2C): 34.50 ml/m2 Left Atrium Systolic Dimension: 3.76 cm Mitral Valve Mitral Valve E-Wave Peak Velocity: 0.71 m/s Right Ventricle Aorta AO Root Diam: 4.46 cm Ascending Ao Diam: 3.81 cm Aortic Valve AoV Area (Peak Junaid): 3.77 cm2, 3.77 cm2 AoV Area (VTI): 3.27 cm2, 3.27 cm2 Peak Velocity(Antegrade Flow): 1.05 m/s Peak Gradient(Antegrade Flow): 4.42 mm[Hg] Mean Velocity(Antegrade Flow): 0.82 m/s Mean Gradient(Antegrade Flow): 2.96 mm[Hg] Velocity Time Integral: 23.80 cm Tricuspid Valve Peak Velocity (Regurgitant Flow): 3.34 m/s Pulmonic Valve Peak Velocity: 0.93 m/s Peak Gradient: 3.59 mm[Hg], 3.32 mm[Hg] Right Atrium Dictated by: Malissa Allen M.D. on 08/23/2023 at 15:46 Approved by: Malsisa Allen M.D. on 08/23/2023 at 15:50 Dictated By: Malissa Allen M.D. Signed By:08/23/23 1551 DD/ 1550 TD/TT: Electrocardiograph Technician: Oneida Branham MD [facility] Final Result documented in this encounter Visit Diagnoses Not on filedocumented in this encounter Care Teams Workers Compensation Legal Secretary Relationship Specialty Start Date End Date Oneida Branham MD [address] [facility] 110 [place] [address] PCP - [employer] 04/30/17 Oneida Branham MD [address] [facility] 110 [place] [address] PCP - General Internal Medicine 10/25/22 Jenn Poole NP [address] [facility] 110 [place] [address] Nurse Practitioner Neurology 07/22/24 Erick Martinez DO [address] [place] [address] Referring Physician Neurology 07/22/24 documented as of this encounter
--- OUTSIDE RECORDS SUMMARY | 2024-11-25 10:03 | XMS_ITS | Encounter Summary ---
Author Organization [facility] Address [address] [place] [address] Care Team Providers Care Process Improvement Manager Name Role Phone Armando Branham MD Unavailable [phone] Armando Branham MD Primary Care Provider [phone] Jenn Poole NP Unavailable Unavailable Erick Martinez DO Unavailable [phone] Reason for Visit * Reason Comments Med Refill Encounter Details Date Type Department Care Team (Late Contact Info) Description 11/25/2024 Refill [facility] [place] [facility] [address] [facility] 110 [place] [address] Armando Branham MD [address] [facility] 110 [place], [place] [phone] Essential (primary) hypertension Social History Tobacco Use Types Packs/Day [...] 9:30 AM EDT Office Visit [facility] [place] [facility] [address] [facility] 110 [place] [address] Armando Branham MD [address] [facility] 110 [place] [address] documented as of this encounter Visit Diagnoses Diagnosis Essential (primary) hypertension Unspecified essential hypertension documented in this encounter Care Teams Process Improvement Manager Relationship Specialty Start Date End Date Armando Branham MD [address] [facility] 110 [place] [address] PCP - [employer] 04/30/17 Armando Branham MD [address] [facility] 110 [place] [address] PCP - General Internal Medicine 10/25/22 Jenn Poole NP [address] [facility] 110 [place] [address] Nurse Practitioner Neurology 07/22/24 Erick Martinez DO [address] [place] [address] Referring Physician Neurology 07/22/24 documented as of this encounter
--- OUTSIDE RECORDS SUMMARY | 2024-11-25 10:03 | XMS_ITS | Encounter Summary ---
Author Organization [facility] Address [address] [place] [address] Care Team Providers Care Squaring Machine Operator Name Role Phone Armando Branham MD Unavailable [phone] Armando Branham MD Primary Care Provider [phone] Jenn Poole PAN GREASER Unavailable Unavailable Erick Martinez DO Unavailable [phone] Encounter Details Date Type Department Care Team (Late st Contact Info) Description 10/18/2022 Abstract [facility] [place] [facility] [address] [facility] 110 [place] [address] Armando Branham MD [address] [facility] 110 [place] [address] Social History Tobacco Use Types Packs/Day Years Used Date Smoking Tobacco: Never Assessed Sex and Gender Information Value Date Recorded Sex Assigned at Not on file Legal Sex Male 6:48 PM EDT Gender Identity Not on file Sexual Orientation Not on file documented as of this encounter Plan of Treatment Upcoming Encounters Date Type Department Care Team (Late st Contact Info) Description 12/03/2024 9:30 AM EDT Office Visit [facility] [place] [facility] [address] [facility] [address] [place] [address] Armando Branham MD [address] [facility] 110 [place] [address] documented as of this encounter Visit Diagnoses Not on filedocumented in this encounter Care Teams Squaring Machine Operator Relationship Specialty Start Date End Date Armando Branham MD [address] [facility] 110 [place] [address] PCP - [employer] 04/30/17 Armando Branham MD [address] [facility] 110 [place] [address] PCP - General Internal Medicine 10/25/22 Jenn Poole NP [address] [facility] 110 [place] [address] Nurse Practitioner Neurology 07/22/24 Erick Martinez DO [address] [place] [address] Referring Physician Neurology 07/22/24 documented as of this encounter
--- OUTSIDE RECORDS SUMMARY | 2024-11-25 10:03 | XMS_ITS | Encounter Summary ---
Author Organization [facility] Address [address] [place] [address] Care Team Providers Care Rehab Technician Name Role Phone Armando Branham MD Unavailable Armando Branham MD Primary Care Provider [phone] Jenn Poole [employer] LEAD ADS MARKETING Unavailable Unavailable Erick Martinez DO Unavailable [phone] Encounter Details Date Type Department Care Team (Late Contact Info) Description 02/13/2023 Abstract [facility] [address] [facility] 120 [place] [address] Tung Pool, DPAd [address] [facility] [place] 5 [place] [address] Social History Tobacco Use Types Packs/Day Years [...] AM EDT Office Visit [facility] [place] [facility] [address] [facility] 110 [place] [address] Armando Branham MD 112 [facility] 110 [place] [address] documented as of this encounter Visit Diagnoses Not on filedocumented in this encounter Care Teams Rehab Technician Relationship Specialty Start Date End Date Armando Branham MD [address] [facility] 110 [place] [address] PCP - [employer] 04/30/17 Armando Branham MD [address] [facility] 110 [place] [address] PCP - General Internal Medicine 10/25/22 Jenn Poole NP [address] [facility] 110 [place] [address] Nurse Practitioner Neurology 07/22/24 Erick Martinez DO [address] [place] [address] Referring Physician Neurology 07/22/24 documented as of this encounter
--- OUTSIDE RECORDS SUMMARY | 2024-11-25 10:03 | XMS_ITS | Encounter Summary ---
Author Organization [facility] Address [address] [place] [address] Care Team Providers Care Stone Decorator Name Role Phone Armando Branham MD Unavailable [phone] Armando Branham MD Primary Care Provider [phone] Jenn Poole CHASER HELPER Unavailable Unavailable Erick Martinez DO Unavailable [phone] Encounter Details Date Type Department Care Team (Late Contact Info) Description 08/14/2023 Orders Only [facility] [place] [facility] [address] [facility] 110 [place] [address] A, Unknown Practice [address] [place], [place] [address] Social History Tobacco Use Types Packs/Day Years [...] AM EDT [facility] [place] [facility] [address] [facility] [address] [place] [address] Armando Branham MD [address] [facility] [address] [place] [address] documented as of this encounter Procedures Procedure Name Priority Date/Time Associated Diagnosis Comments ELECTROCARDIOGRAM REPORT Routine 024 9:48 AM EDT documented in this encounter Results * Electrocardiogram Report (08/10/2023 9:48 AM EDT) us Unknown Practice A IN CLINIC/BEDSIDE ORDERABLES Final Result documented in this encounter Visit Diagnoses Not on filedocumented in this encounter Care Teams Stone Decorator Relationship Specialty Start Date End Date Armando Branham MD [address] [facility] 110 [place] [address] PCP - [employer] 04/30/17 Armando Branham MD [address] [facility] 110 [place] [address] PCP - General Internal Medicine 10/25/22 Jenn Poole NP [address] [facility] 110 [place] [address] Nurse Practitioner Neurology 07/22/24 Erick Martinez DO [address] [place] [address] Referring Physician Neurology 07/22/24 documented as of this encounter
--- OUTSIDE RECORDS SUMMARY | 2024-11-25 10:03 | XMS_ITS | Encounter Summary ---
Author Organization [facility] Address [address] [place] [address] Care Team Providers Care Doper Operator Name Role Phone Armando Branham MD Unavailable [phone] Armando Branham MD Primary Care Provider [phone] Jenn Poole CHEMIST WATER PURIFICATION Unavailable Unavailable Erick Martinez DO Unavailable [phone] Encounter Details Date Type Department Care Team (Late st Contact Info) Description 07/09/2023 Abstract [facility] [place] [facility] [address] [facility] 110 [place] [address] Armando Branham MD [address] [facility] 110 [place], [place] [phone] Social History Tobacco Use Types Packs/Day Years [...] EDT Office Visit [facility] [place] [facility] [address] [facility] 110 [place] [address] Armando Branham MD [address] [facility] 110 [place], [place] [address] documented as of this encounter Visit Diagnoses Not on filedocumented in this encounter Care Teams Doper Operator Relationship Specialty Start Date End Date Armando Branham MD [address] [facility] 110 [place] [address] PCP - [employer] 04/30/17 Armando Branham MD [address] [facility] 110 [place] [address] PCP - General Internal Medicine 10/25/22 Jenn Poole NP [address] [facility] 110 [place] [address] Nurse Practitioner Neurology 07/22/24 Erick Martinez DO [address] [place] [address] Referring Physician Neurology 07/22/24 documented as of this encounter
--- OUTSIDE RECORDS SUMMARY | 2024-11-25 10:03 | XMS_ITS | Encounter Summary ---
Author Organization [facility] Address [address] [facility] [address] Care Team Providers Care Control Room Operator Name Role Phone Armando Branham MD Unavailable [phone] Armando Branham MD Primary Care Provider [phone] Jenn Poole BLOOD BANK ORDER CONTROL CLERK Unavailable Unavailable Erick Martinez DO Unavailable [phone] Encounter Details Date Type Department Care Team (Late st Contact Info) Description 11/06/2022 Abstract [facility] [place] [facility] [address] [place] [address] Ron Mccormack, PT [address] [facility] [address] Social History Tobacco Use Types Packs/Day Years [...] AM EDT Office Visit [facility] [place] [facility] [address] [facility] [address] [place] [address] Armando Branham MD [address] [facility] 110 [place] [address] documented as of this encounter Visit Diagnoses Not on filedocumented in this encounter Care Teams Control Room Operator Relationship Specialty Start Date End Date Armando Branham MD [address] [facility] 110 [place] [address] PCP - [employer] 04/30/17 Armando Branham MD [address] [facility] 110 [place] [address] PCP - General Internal Medicine 10/25/22 Jenn Poole NP [address] [facility] 110 [place] [address] Nurse Practitioner Neurology 07/22/24 Erick Martinez DO [address] [place] [address] Referring Physician Neurology 07/22/24 documented as of this encounter
--- OUTSIDE RECORDS SUMMARY | 2024-11-25 10:03 | XMS_ITS | Encounter Summary ---
Author Organization [facility] Address [address] [place] [address] Care Team Providers Care Outreach Consultant Name Role Phone Armando Branham MD Unavailable [phone] Armando Branham MD Primary Care Provider [phone] Jenn Poole LEAD PROCESS ENGINEER Unavailable Unavailable Erick Martinez DO Unavailable [phone] Encounter Details Date Type Department Care Team (Late st Contact Info) Description 04/11/2023 Abstract [facility] [place] [facility] [address] [facility] 110 [place] [address] Armando Branham MD 112 [facility] 110 [place], [place] [address] Social History Tobacco Use Types Packs/Day Years [...] AM EDT Office Visit [facility] [place] [facility] [address] [facility] 110 [place] [address] Armando Branham MD 112 [facility] 110 [place], [place] [address] documented as of this encounter Visit Diagnoses Not on filedocumented in this encounter Care Teams Outreach Consultant Relationship Specialty Start Date End Date Armando Branham MD [address] [facility] 110 [place] [address] PCP - [employer] 04/30/17 Armando Branham MD [address] [facility] 110 [place] [address] PCP - General Internal Medicine 10/25/22 Jenn Poole NP 112 [facility] 110 [place] [address] Nurse Practitioner Neurology 07/22/24 Erick Martinez DO [address] [place] [address] Referring Physician Neurology 07/22/24 documented as of this encounter
--- OUTSIDE RECORDS SUMMARY | 2024-11-25 10:03 | XMS_ITS | Encounter Summary ---
Author Organization [facility] Address [address] [place] [address] Care Team Providers Care Transferrer Name Role Phone Armando Branham MD Unavailable [phone] Armando Branham MD Primary Care Provider [phone] Jenn Poole PATTERN MAKER PROGRAMER Unavailable Unavailable Erick Martinez DO Unavailable [phone] Encounter Details Date Type Department Care Team (Late st Contact Info) Description 03/15/2023 Abstract [facility] [place] [facility] [address] [facility] 110 [place] [address] Armando Branham MD [address] [facility] 110 [place], [place] [address] Social History Tobacco Use Types Packs/Day Years [...] AM EDT Office Visit [facility] [place] [facility] [address] [facility] 110 [place] [address] Armando Branham MD [address] [facility] 110 [place], [place] [address] documented as of this encounter Visit Diagnoses Not on filedocumented in this encounter Care Teams Transferrer Relationship Specialty Start Date End Date Armando Branham MD [address] [facility] 110 [place] [address] PCP - [employer] 04/30/17 Armando Branham MD [address] [facility] 110 [place] [address] PCP - General Internal Medicine 10/25/22 Jenn Poole NP [address] [facility] 110 [place] [address] Nurse Practitioner Neurology 07/22/24 Erick Martinez DO [address] [place] [address] Referring Physician Neurology 07/22/24 documented as of this encounter
--- OUTSIDE RECORDS SUMMARY | 2024-11-25 10:03 | XMS_ITS | Encounter Summary ---
Author Organization [facility] Address [address] [place] [address] Care Team Providers Care Cruise Counselor Name Role Phone Armando Branham MD Unavailable [phone] Armando Branham MD Primary Care Provider [phone] Jenn Poole TRAINING AND DEVELOPMENT SPECIALIST Unavailable Unavailable Erick Martinez DO Unavailable [phone] Encounter Details Date Type Department Care Team (Late Contact Info) Description 08/09/2023 Abstract [facility] [place] [facility] [address] [facility] 110 [place] [address] Armando Branham MD [address] [facility] 110 [place] [address] Social History Tobacco Use Types [...] AM EDT Office Visit [facility] [place] [facility] [address] [facility] 110 [place] [address] Armanod Branham MD [address] [facility] 110 [place] [address] documented as of this encounter Visit Diagnoses Not on filedocumented in this encounter Care Teams Cruise Counselor Relationship Specialty Start Date End Date Armando Branham MD [address] [facility] 110 [place] [address] PCP - Humana 04/30/17 Armnado Branham MD [address] [facility] 110 [place] [address] PCP - General Internal Medicine 10/25/22 Jenn Poole NP [address] [facility] 110 [place] [address] Nurse Practitioner Neurology 07/22/24 Erick Martinez DO [address] [place] [address] Referring Physician Neurology 07/22/24 documented as of this encounter
--- OUTSIDE RECORDS SUMMARY | 2024-11-25 10:04 | XMS_ITS | Encounter Summary ---
Author Organization [facility] Address [address] [place] [address] Care Team Providers Care Meter Reader Name Role Phone Armando Branham MD Unavailable [phone] Armando Branham MD Primary Care Provider [phone] Jenn Poole JERKER Unavailable Unavailable Erick Martinez DO Unavailable [phone] Encounter Details Date Type Department Care Team (Late Contact Info) Description 07/31/2024 Abstract [facility] [place] [facility] [address] [facility] 110 [place] [address] Armando Branham MD 112 [facility] 110 [place] [address] Social History Tobacco Use Types Packs/Day Years Used Date Smoking Tobacco: Former Cigarettes Q uit: 1991 Pipe Cigars Smokeless Tobacco: Never Alcohol Use Standard Drinks/Week Comments Yes 0 (1 standard drink = 0.6 oz pur e alcohol) Coffee 2-3 cups per day PHQ-2 Answer Date Recorded Patient Health Questionnaire-2 Score 0 07/30/2024 Sex and Gender Information Value Date Recorded Sex Assigned at Not on file Legal Sex Male 6:48 PM EDT Gender Identity Not on file Sexual Orientation Not on file documented as of this encounter Plan of Treatment Upcoming Encounters Date Type Department Care Team (Late Contact Info) Description 12/03/2024 9:30 AM EDT Office Visit [facility] [place] [facility] [address] [facility] 110 [place] [address] Armando Branham MD [address] [facility] 110 [place] [address] documented as of this encounter Visit Diagnoses Not on filedocumented in this encounter Care Teams Meter Reader Relationship Specialty Start Date End Date Armando Branham MD [address] [facility] 110 [place] [address] PCP - Humana 04/30/17 Armando Branham MD [address] [facility] 110 [place] [address] PCP - General Internal Medicine 10/25/22 Jenn Poole NP [address] [facility] 110 [place] [address] Nurse Practitioner Neurology 07/22/24 Erick Martinez DO [address] [place] [address] Referring Physician Neurology 07/22/24 documented as of this encounter
--- OUTSIDE RECORDS SUMMARY | 2024-11-25 10:04 | XMS_ITS | Encounter Summary ---
Author Organization [facility] Address [address] [place] [address] Care Team Providers Care Instructional Manager Name Role Phone Armando Branham MD Unavailable [phone] Armando Branham MD Primary Care Provider [phone] Jenn Poole SERVICE DESK MANAGER Unavailable Unavailable Erick Martinez DO Unavailable [phone] Encounter Details Date Type Department Care Team (Late Contact Info) Description 10/22/2023 Abstract [facility] [place] [facility] [address] [facility] 110 [place] [address] Armando Branham MD 112 [facility] 110 [place] [address] Social History Tobacco Use Types [...] AM EDT Office Visit [facility] [place] [facility] [address] [facility] 110 [place] [address] Armando Branham MD [address] [facility] 110 [place] [address] documented as of this encounter Visit Diagnoses Not on filedocumented in this encounter Care Teams Instructional Manager Relationship Specialty Start Date End Date Armando Branham MD [address] [facility] 110 [place] [address] PCP - Humana 04/30/17 Armando Branham MD [address] [facility] [address] [place] [address] PCP - General Internal Medicine 10/25/22 Jenn Poole NP [address] [facility] 110 [place] [address] Nurse Practitioner Neurology 07/22/24 Erick Martinez DO [address] [place] [address] Referring Physician Neurology 07/22/24 documented as of this encounter
--- OUTSIDE RECORDS SUMMARY | 2024-11-25 10:04 | XMS_ITS | Encounter Summary ---
Author Organization [facility] Address [address] [place] [address] Care Team Providers Care Activities Manager Name Role Phone Armando Branham MD Unavailable [phone] Armando Branham MD Primary Care Provider [phone] Jenn Pooel SEARCH ENGINE OPTIMIZER Unavailable Unavailable Erick Martinez DO Unavailable [phone] Encounter Details Date Type Department Care Team (Late Contact Info) Description 12/19/2023 Abstract [facility] [place] [facility] [address] [facility] 110 [place] [address] Armando Branham MD [address] [facility] 110 [place] [address] Social History Tobacco Use Types [...] [facility]rough[facility] [address] [facility] 110 [place] [address] Armando Branham MD [address] [facility] 110 [place] [address] documented as of this encounter Visit Diagnoses Not on filedocumented in this encounter Care Teams Activities Manager Relationship Specialty Start Date End Date Armando Branham MD [address] [facility] 110 [place] [address] PCP - Humana 04/30/17 Armando Branham MD [address] [facility] 110 [place] [address] PCP - General Internal Medicine 10/25/22 Jenn Poole NP [address] [facility] 110 [place] [address] Nurse Practitioner Neurology 07/22/24 Erick Martinez DO [address] [place] [address] Referring Physician Neurology 07/22/24 documented as of this encounter
== END 2024-11-24 09:31 | disposition home or self-care (01) ==
LOC: SLEEP 11-25 10:01
PROVIDERS: PCP Nurse Practitioner Family; Visit Provider Nurse Practitioner Family
DX: G47.33 Obstructive sleep apnea (adult) (pediatric) (principal)
CPT/HCPCS: 95806

== ENCOUNTER 2024-11-26 06:54 | Outpatient (OUT) | payer MEDICARE, SELFPAY ==
--- OUTSIDE RECORDS SUMMARY | 2024-11-26 06:56 | XMS_ITS | Encounter Summary ---
Author Organization [facility] Address [address] [place] [address] Care Team Providers Care Cage Operator Name Role Phone Armando Branham MD Unavailable [phone] Armando Branham MD Primary Care Provider [phone] Jenn Poole CORPORATE FINANCIAL ANALYST Unavailable Unavailable Erick Martinez DO Unavailable [phone] Encounter Details Date Type Department Care Team (Late st Contact Info) Description 02/06/2023 Orders Only [facility] [place] [facility] [address] [facility] 110 [place] [address] A, Unknown Practice [address] [place], [place] [address] Social History Tobacco Use Types Packs/Day Years [...] [place] [facility] [address] [facility] 110 [place] [address] Armando Branham MD [address] [facility] 110 [place] [address] documented as of this encounter Procedures Procedure Name Priority Date/Time Associated Diagnosis Comments SCANNED LABS Routine 02/06/2023 1:47 PM EDT documented in this encounter Results * SCANNED LABS (02/06/2023 1:47 PM EDT) us Unknown Practice A LAB CHG PERFORMABLES Final Re sult documented in this encounter Visit Diagnoses Not on filedocumented in this encounter Care Teams Cage Operator Relationship Specialty Start Date End Date Armando Branham MD [address] [facility] 110 [place] [address] PCP - Humana 04/30/17 Armando Branham MD [address] [facility] 110 [place] [address] PCP - General Internal Medicine 10/25/22 Jenn Poole NP [address] [facility] 110 [place] [address] Nurse Practitioner Neurology 07/22/24 Erick Martinez DO [address] [place] [address] Referring Physician Neurology 07/22/24 documented as of this encounter
--- OUTSIDE RECORDS SUMMARY | 2024-11-26 06:56 | XMS_ITS | Encounter Summary ---
Author Organization [facility] Address [address] [place] [address] Care Team Providers Care Mailmaster Name Role Phone Armando Branham MD Unavailable [phone] Armando Branham MD Primary Care Provider [phone] Jenn Poole FLAVOR MAKER Unavailable Unavailable Erick Martinez DO Unavailable [phone] Encounter Details Date Type Department Care Team (Late Contact Info) Description 12/19/2023 Abstract [facility] [place] [facility] [address] [facility] 110 [place] [address] Armando Branham MD 112 [facility] 110 [place] [address] Social History Tobacco Use Types [...] AM EDT Office Visit [facility] [place] [facility] [address] [facility] 110 [place] [address] Armando Branham MD [address] [facility] 110 [place] [address] documented as of this encounter Visit Diagnoses Not on filedocumented in this encounter Care Teams Mailmaster Relationship Specialty Start Date End Date Armando Branham MD [address] [facility] 110 [place] [address] PCP - Humana 04/30/17 Armando Branham MD [address] [facility] 110 [place] [address] PCP - General Internal Medicine 10/25/22 Jenn Poole NP [address] [facility] 110 [place] [address] Nurse Practitioner Neurology 07/22/24 Erick Martinez DO [address] [place] [address] Referring Physician Neurology 07/22/24 documented as of this encounter
--- OUTSIDE RECORDS SUMMARY | 2024-11-26 06:56 | XMS_ITS | Encounter Summary ---
Author Organization [facility] Address [address] [place] [address] Care Team Providers Care Supervisor Housecleaner Name Role Phone Armando Branham MD Unavailable [phone] Armando Branham MD Primary Care Provider [phone] Jenn Poole BOTTLE INSPECTOR Unavailable Unavailable Erick Martinez DO Unavailable [phone] Encounter Details Date Type Department Care Team (Late st Contact Info) Description 12/13/2022 Abstract [facility] [place] [facility] [address] [facility] 110 [place] [address] Armando Branham MD [address] [facility] 110 [place], [place] [address] Social History Tobacco Use Types Packs/Day Years [...] Office Visit [facility] [place] [facility] [address] [facility] 110 [place] [address] Armando Branham MD [address] [facility] 110 [place], [place] [address] documented as of this encounter Visit Diagnoses Not on filedocumented in this encounter Care Teams Supervisor Housecleaner Relationship Specialty Start Date End Date Armando Branham MD [address] [facility] 110 [place] [address] PCP - Humana 04/30/17 Armando Branham MD [address] [facility] 110 [place] [address] PCP - General Internal Medicine 10/25/22 Jenn Poole NP [address] [facility] 110 [place] [address] Nurse Practitioner Neurology 07/22/24 Erick Martinez DO [address] [place] [address] Referring Physician Neurology 07/22/24 documented as of this encounter
--- OUTSIDE RECORDS SUMMARY | 2024-11-26 06:56 | XMS_ITS | Encounter Summary ---
Author Organization [facility] Address [address] [facility] [place] [address] Care Team Providers Care Photoengraving Printer Name Role Phone Armando Branham MD Unavailable [phone] Armando Branham MD Primary Care Provider [phone] eJnn Poole EPIC PRELUDE ANALYST Unavailable Unavailable Erick Martinez DO Unavailable [phone] Encounter Details Date Type Department Care Team (Late st Contact Info) Description 11/06/2022 Abstract [facility] [place] [facility] [address] [facility] [address] [place] [address] Ron Mccormack, PT [address] [facility] [address] Social History Tobacco Use Types [...] [facility] [address] [facility] [address] [place] [address] Armando Branham MD [address] [facility] [address] [place] [address] documented as of this encounter Visit Diagnoses Not on filedocumented in this encounter Care Teams Photoengraving Printer Relationship Specialty Start Date End Date Armando Branham MD [address] [facility] 110 [place] [address] PCP - Humana 04/30/17 Armando Branham MD [address] [facility] 110 [place] [address] PCP - General Internal Medicine 10/25/22 Jenn Poole NP [address] [facility] 110 [place] [address] Nurse Practitioner Neurology 07/22/24 Erick Martinez DO [address] [place] [address] Referring Physician Neurology 07/22/24 documented as of this encounter
--- OUTSIDE RECORDS SUMMARY | 2024-11-26 06:56 | XMS_ITS | Encounter Summary ---
Author Organization [facility] Address [address] [place] [address] Care Team Providers Care Janitor Name Role Phone Armando Branham MD Unavailable [phone] Armando Branham MD Primary Care Provider [phone] Jenn Poole MAILROOM PERSONNEL Unavailable Unavailable Erick Martinez DO Unavailable [phone] Encounter Details Date Type Department Care Team (Late Contact Info) Description 07/31/2024 Abstract [facility] [place] [facility] [address] [facility] 110 [place] [address] Armando Branham MD 112 [facility] 110 [place] [address] Social History Tobacco Use Types [...] AM EDT Office Visit [facility] [place] [facility] [address] [facility] 110 [place] [address] Armando Branham MD [address] [email or web address] 110 [place] [address] documented as of this encounter Visit Diagnoses Not on filedocumented in this encounter Care Teams Janitor Relationship Specialty Start Date End Date Armando Branham MD [address] [email or web address] 110 [place] [address] PCP - Humana 04/30/17 Armando Branham MD [address] [email or web address] 110 [place] [address] PCP - General Internal Medicine 10/25/22 Jenn Poole NP [address] [email or web address] 110 [place] [address] Nurse Practitioner Neurology 07/22/24 Erick Martinez DO [address] [place] [address] Referring Physician Neurology 07/22/24 documented as of this encounter
--- OUTSIDE RECORDS SUMMARY | 2024-11-26 06:56 | XMS_ITS | Encounter Summary ---
Author Organization [facility] Address [address] [place] [address] Care Team Providers Care Interpretive Naturalist Name Role Phone Armando Branham MD Unavailable [phone] Armando Branham MD Primary Care Provider [phone] Jenn Poole FISH BONING MACHINE FEEDER Unavailable Unavailable Erick Martinez DO Unavailable [phone] Encounter Details Date Type Department Care Team (Late st Contact Info) Description 10/18/2022 Abstract [facility] [place] [facility] [address] [facility] 110 [place] [address] Armando Branham MD [address] [facility] 110 [place] [address] Social History Tobacco Use Types Packs/Day Years [...] [facility] [address] [facility] [address] [place] [address] Armando Branham MD [address] [facility] 110 [place] [address] documented as of this encounter Visit Diagnoses Not on filedocumented in this encounter Care Teams Interpretive Naturalist Relationship Specialty Start Date End Date Armando Branham MD [address] [facility] 110 [place] [address] PCP - Humana 04/30/17 Armando Branham MD [address] [facility] 110 [place] [address] PCP - General Internal Medicine 10/25/22 Jenn Poole NP [address] [facility] 110 [place] [address] Nurse Practitioner Neurology 07/22/24 Erick Martinez DO [address] [place] [address] Referring Physician Neurology 07/22/24 documented as of this encounter
--- OUTSIDE RECORDS SUMMARY | 2024-11-26 06:56 | XMS_ITS | Encounter Summary ---
Author Organization [facility] Address [address] [place] [address] Care Team Providers Care Bobbin Handler Name Role Phone Armando Branham MD Unavailable [phone] Armando Branham MD Primary Care Provider Jenn Poole FINGER GRIP MACHINE OPERATOR Unavailable Unavailable Erick Martinez DO Unavailable [phone] Encounter Details Date Type Department Care Team (Late Contact Info) Description 11/11/2024 Abstract [facility] [place] [facility] [address] [facility] 110 [place] [address] Armando Branham MD 112 [facility] 110 [place] [address] Social History Tobacco Use Types [...] Office Visit [facility] [place] [facility] [address] [facility] 110 [place] [address] Armando Branham MD [address] [facility] 110 [place] [address] documented as of this encounter Visit Diagnoses Not on filedocumented in this encounter Care Teams Bobbin Handler Relationship Specialty Start Date End Date Armando Branham MD [address] [facility] 110 [place] [address] PCP - Humana 04/30/17 Armando Branham MD [address] [facility] 110 [place] [address] PCP - General Internal Medicine 10/25/22 Jenn Poole NP [address] [facility] 110 [place] [address] Nurse Practitioner Neurology 07/22/24 Erick Martinez DO [address] [place] [address] Referring Physician Neurology 07/22/24 documented as of this encounter
--- OUTSIDE RECORDS SUMMARY | 2024-11-26 06:56 | XMS_ITS | Clinical Summary ---
Author Organization [facility] Address [address] [place] [address] Care Team Providers Care Administrative Law Judge Name Role Phone Armando Branham MD Primary Care Provider [phone] Allergies No known active allergies Medications valsartan-hydroch lorothiazide (Diovan-HCT) 320-25 mg tablet Take 1 tablet by mouth in the morning. 4 Active Eliquis 5 mg tablet TAKE 1 TABLET (5 MG) BY MOUTH IN THE MORNING AND BEFORE BEDTIME Active RABEprazole (Aciphex) 20 mg EC tablet TAKE 1 TABLET BY MOUTH EVERY DAY FOR 100 DAYS 4 Active ferrous sulfate 325 (65 Fe) MG EC tablet Take 65 mg of iron by mouth with breakfast, with lunch, and with evening meal. Do not crush, chew, or split. Active famotidine (Pepcid) 20 mg tabletIndications :Persistent atrial fibrillation (CMS/HCC) Take 1 tablet (20 mg) by mouth two times daily. 60 tablet 4 Active amLODIPine (Norvasc) 5 mg tabletIndications :Essential hypertension Take 1 tablet (5 mg) by mouth in the morning. WITH A 2.5 MG TABLET DAILY FOR A TOTAL OF 7.5 MG DAILY 90 tablet 3 4 03/03/20 25 Active nebivolol (Bystolic) 10 mg tabletIndications :Essential hypertension Take 1 tablet (10 mg) by mouth in the morning. 90 tablet 3 4 03/03/20 25 Active furosemide (Lasix) 20 mg tablet Take 20 mg by mouth if needed each day. 5 Active HYDROcodone-aceta minophen ([place]) 5-325 mg tablet Take 1 tablet by mouth every 4 (four) hours if needed. Active potassium chloride CR (Klor-Con M10) 10 mEq ER tablet Take 10 mEq by mouth in the morning. Do not crush or chew. Active Active Problems Problem Noted Date Diagnosed Date Bilateral lower extremity edema 09/09/2024 Impaired fasting glucose 05/21/2024 Backache 09/16/2023 Disturbance of skin sensation 09/16/2023 Encounter for drug therapy 09/16/2023 Overview (09/18/2023): See above. Enthesopathy of hip region 09/16/2023 Fibromyalgia 09/16/2023 Muscle spasm 09/16/2023 Musculoskeletal symptoms referable to limbs 08/28 Myalgia 09/16/2023 Nocturnal leg cramps 09/16/2023 Overview (09/18/2023): It is my impression that patient experiences intermittent nocturnal leg cramps. He denies RLS symptoms and feels these have improved. He attributes symptoms to being positional. PLAN: - Adequate hydration and stretching exercises discussed - Continue daily multivitamin Paresthesia 09/16/2023 Overview (09/18/2023): The patient reports intermittent numbness in the toes bilaterally. This started within the past 6 months. He denies history of DM or excessive alcohol use. PLAN: - EMG of the BLE to assess for a potentially causative process as well as the severity. Polyneuropathy 09/16/2023 Overview (09/18/2023): The patient has polyneuropathy as identified on [...] elevated B6 lab value - Fall prevention SI (sacroiliac) joint dysfunction 09/16/2023 Arthropathy of lumbar facet joint 09/16/2023 Overview (09/18/2023): Lumbar spine MRI in 09/2020 revealed facet [...] and tizanidine - Patient declined physical therapy Paroxysmal atrial fibrillation 08/10/2023 Assessment & Plan (01/18/2024 9:57 AM EDT): [id number] score is 4 Remains on Amiodarone, metoprolol and eliquis [...] for lightheadedness, dizziness, syncope or any concerns Venous insufficiency (chronic) (peripheral) 07/29 Type 2 diabetes mellitus with other specified co mplication 08/01/2023 Arthritis of right foot 11/02/2022 Plantar fasciitis of right foot 11/02/2022 Benign essential hypertension 10/23/2022 Assessment & Plan (01/18/2024 10:00 AM EDT): Hypertension is uncontrolled in office but he has not taken [...] reason Continue valsartan-hydrochlorothiazide 320-25mg daily and toprol Depressive disorder 10/23/2022 Diverticulosis of colon 10/23/2022 Gastroesophageal reflux disease with esophagitis 10/23/2022 Lumbar radiculopathy 10/23/2022 Primary generalized (osteo)arthritis 10/23/2022 Pure hypercholesterolemia 10/23/2022 Spondylosis of lumbar region without myelopathy or radiculopathy 10/23/2022 Spinal stenosis of lumbar region 10/23/2022 Overview (02/06/2024): Lumbar spine MRI in 2015 revealed marked stenosis at L2-L3 and L4-L5. This seems to have worsened, with lumbar spine MRI in 09/2020 revealing severe spinal stenosis at L3-L4. - PLAN: - See above Encounters Date Type Department Care Team Description 11/24/[address] [facility] [address] [place] [address] Sonia Rich CNP Essential hypertension 10/15/2024 9:20 AM EDT Office Visit [facility] [address] [place] [address] Sonia Rich CNP SNYDER (dyspnea on exertion) (Primary Dx); Pulmonary hypertension (CMS/HCC); PAF (paroxysmal atrial fibrillation) (CMS/HCC); S/P ablation of atrial flutter; Benign hypertensive heart disease without congestive heart failure from Last 3 Months Family History Medical History Relation Name Comments Heart failure Mother ckd Mother Relation Name Status Comments Father Mother Social History Tobacco Use Types Packs/Day Years Used Date Smoking Tobacco: Former Cigarettes Q uit: 1991 Passive Smoke Exposure: Past Smokeless Tobacco: Former Tobacco Cessation:Counseling Given: Not Answered Alcohol Use [...] Sign Reading Time Taken Comments Blood Pressure 143/69 10/15/2024 8:59 AM EDT Pulse 64 10/15/2024 8:59 AM EDT Temperature 36 C (96.8 F) 12/19/2023 3:30 PM EDT Respiratory Rate 14 12/19/2023 3:30 PM EDT Oxygen Saturation 95% 10/15/2024 8:59 AM EDT Inhaled Oxygen Concentration - - Weight 128 kg (283 lb) 10/15/2024 8:59 AM EDT Height 180.3 cm (5' 11 ) 10/15/2024 8:59 AM EDT Body Mass Index 39.47 10/15/2024 8:59 AM EDT Plan of Treatment Health Maintenance Due Date Last Done Comments Diabetes: Hemoglobin A1C 1945 Medicare Annual Wellness (AWV) 1945 Diabetes: Retinopathy Screening 08/05/1957 Depression Screening 1959 Fall Risk Screening 08/05/2012 COVID-19 Vaccine ( season) 2023 02/24/2023, 03/10/2021, 08/03/2020, Additional history exists Influenza Vaccine (#1) 2024 , 02/24/2023, 02/28/2022, Additional history exists Diabetes: Urine Protein Screening 07/30/2025 07/30/2024, 08/08/2023 Adult Tetanus 08/13/2033 08/14/2023 Colonoscopy Discontinued 02/01/2015 Colorectal Cancer Screening Discontinued Zoster Vaccines Completed 04/25/2019, 01/28, 04/14/2014 Pneumococcal Vaccine: 50+ Years Completed 05/27/2020, 09/25/2018, 04/07/2014 CT Colonography Discontinued FIT-DNA Discontinued FIT Discontinued FOBT Discontinued HIB Vaccines Aged Out No longer eligi ble based on patient's age to complete this topic HPV Vaccines Aged Out No longer eligi ble based on patient's age to complete this topic IPV Vaccines Aged Out No longer eligi ble based on patient's age to complete this topic Meningococcal B Vaccine Aged Out No l onger eligible based on patient's age to complete this topic Meningococcal Vaccine Aged Out No melba sarah eligible based on patient's age to complete this topic Rotavirus Vaccines Aged Out No longer eligible based on patient's age to complete this topic Sigmoidoscopy Discontinued Insurance [facility] MEDICARE ADVANTAGE Advance Directives * Full Code (Latest Code Status on File) Date Activated Date Inactivated Comments 12/19/2023 11:44 AM 12/19/2023 6:50 PM Care Teams Administrative Law Judge Relationship Specialty Start Date End Date Armando Branham MD PCP - General Internal Medicine 09/17/23
--- OUTSIDE RECORDS SUMMARY | 2024-11-26 06:56 | XMS_ITS | Encounter Summary ---
Author Organization [facility] Address [address] [place] [address] Care Team Providers Care Date Puller Name Role Phone Armando Branham MD Unavailable [phone] Armando Branham MD Primary Care Provider [phone] Jenn Poole GENERAL PRACTICE Unavailable Unavailable Erick Martinez DO Unavailable [phone] Encounter Details Date Type Department Care Team (Late Contact Info) Description 10/22/2023 [facility] [place] [facility] [address] [facility] 110 [place] [address] Armando Branham MD 112 [facility] 110 [place] [address] Social History Tobacco Use Types [...] AM EDT Office Visit [facility] [place] [facility] [address] [facility] 110 [place] [address] Armando Branham MD [address] [facility] 110 [place] [address] documented as of this encounter Visit Diagnoses Not on filedocumented in this encounter Care Teams Date Puller Relationship Specialty Start Date End Date Armando Branham MD [address] [facility] 110 [place] [address] PCP - Hum[employer] 04/30/17 Armando Branham MD [address] [facility] 110 [place] [address] PCP - General Internal Medicine 10/25/22 Jenn Poole NP [address] [facility] 110 [place] [address] Nurse Practitioner Neurology 07/22/24 Erick Martinez DO [address] [place] [address] Referring Physician Neurology 07/22/24 documented as of this encounter
--- OUTSIDE RECORDS SUMMARY | 2024-11-26 06:56 | XMS_ITS | Encounter Summary ---
Author Organization [facility] Address [address] [place] [address] Care Team Providers Care Director Of Dance Name Role Phone Armando Branham MD Unavailable [phone] Armando Branham MD Primary Care Provider [phone] Jenn Poole NP Unavailable Unavailable Erick Martinez DO Unavailable [phone] Encounter Details Date Type Department Care Team (Late st Contact Info) Description 11/05/2022 [facility] [address] [facility] 150 [place] [address] Yamile Simental NP Social History [...] Visit [facility] [address] [facility] 110 [place] [address] Armando Branham MD 112 [facility] 110 [place], [place] [id number] documented as of this encounter Visit Diagnoses Not on filedocumented in this encounter Care Teams Director Of Dance Relationship Specialty Start Date End Date Armando Branham MD [address] [facility] 110 [place] [address] PCP - Humana 04/30/17 Armando Branham MD [address] [facility] 110 [place] [address] PCP - General Internal Medicine 10/25/22 Jenn Poole NP [address] [facility] 110 [place] [address] Nurse Practitioner Neurology 07/22/24 Erick Martinez DO [address] [place] [address] Referring Physician Neurology 07/22/24 documented as of this encounter
--- OUTSIDE RECORDS SUMMARY | 2024-11-26 06:56 | XMS_ITS | Encounter Summary ---
Author Organization [facility] Address [address] [place] [address] Care Team Providers Care Gasoline Finisher Name Role Phone Armando Branham MD Unavailable [phone] Armando Branham MD Primary Care Provider [phone] Jenn Poole LAP MACHINE OPERATOR Unavailable Unavailable Erick Martinez DO Unavailable [phone] Encounter Details Date Type Department Care Team (Late st Contact Info) Description 03/15/2023 Abstract [facility] [place] [facility] [address] [facility] 110 [place] [address] Armando Branham MD [address] [facility] 110 [place], [place] [id number] Social History Tobacco Use Types Packs/Day Years [...] AM EDT Office Visit [facility] [place] [facility] [address] [facility] 110 [place] [address] Armando Branham MD [address] [facility] 110 [place], [place] [id number] documented as of this encounter Visit Diagnoses Not on filedocumented in this encounter Care Teams Gasoline Finisher Relationship Specialty Start Date End Date Armando Branham MD [address] [facility] 110 [place] [address] PCP - Humana 04/30/17 Armando Branham MD [address] [facility] 110 [place] [address] PCP - General Internal Medicine 10/25/22 Jenn Poole NP [address] [facility] 110 [place] [address] Nurse Practitioner Neurology 07/22/24 Erick Martinez DO [address] [place] [address] Referring Physician Neurology 07/22/24 documented as of this encounter
--- OUTSIDE RECORDS SUMMARY | 2024-11-26 06:56 | XMS_ITS | Encounter Summary ---
Author Organization [facility] Address [address] [place] [address] Care Team Providers Care Checker Dump Grounds Name Role Phone Armando Branham MD Unavailable [phone] Armando Branham MD Primary Care Provider [phone] Jenn Poole PE ELECTRICAL ENGINEER Unavailable Unavailable Erick Martinez DO Unavailable [phone] Encounter Details Date Type Department Care Team (Late st Contact Info) Description 04/11/2023 Abstract [facility] [place] [facility] [address] [facility] 110 [place] [address] Armando Branham MD [address] [facility] 110 [place], [place] [id number] Social History Tobacco Use Types Packs/Day Years [...] AM EDT Office Visit [facility] [place] [facility] [address] [facility] 110 [place] [address] Armando Branham MD [address] [facility] 110 [place], [place] [address] documented as of this encounter Visit Diagnoses Not on filedocumented in this encounter Care Teams Checker Dump Grounds Relationship Specialty Start Date End Date Armando Branham MD [address] [facility] 110 [place] [address] PCP - Humana 04/30/17 Armando Branham MD [address] [facility] 110 [place] [address] PCP - General Internal Medicine 10/25/22 Jenn Poole NP [address] [facility] 110 [place] [address] Nurse Practitioner Neurology 07/22/24 Erick Martinez DO [address] [place] [address] Referring Physician Neurology 07/22/24 documented as of this encounter
--- OUTSIDE RECORDS SUMMARY | 2024-11-26 06:56 | XMS_ITS | Encounter Summary ---
Author Organization [facility] Address [address] [place] [address] Care Team Providers Care Bonding Supervisor Name Role Phone Armando Branham MD Unavailable [phone] Armando Branham MD Primary Care Provider [phone] Jenn Poole NP Unavailable Unavailable Erick Martinez DO Unavailable [phone] Reason for Visit * Reason Comments Med Refill Encounter Details Date Type Department Care Team (Late Contact Info) Description 11/25/2024 Refill [facility] [place] [facility] [address] [facility] 110 [place] [address] Armando Branham MD [address] [facility] 110 [place], [place] [address] Essential (primary) hypertension Social History Tobacco Use [...] Family [facility] [address] [facility] 110 [place] [address] Armando Branham MD [address] [facility] [address] [place] [address] documented as of this encounter Visit Diagnoses Diagnosis Essential (primary) hypertension Unspecified essential hypertension documented in this encounter Care Teams Bonding Supervisor Relationship Specialty Start Date End Date Armando Branham MD [address] [facility] 110 [place] [address] PCP - Humana 04/30/17 Armando Branham MD [address] [facility] 110 [place] [address] PCP - General Internal Medicine 10/25/22 Jenn Poole NP [address] [facility] 110 [place] [address] Nurse Practitioner Neurology 07/22/24 Erick Martinez DO [address] [place] [address] Referring Physician Neurology 07/22/24 documented as of this encounter
--- OUTSIDE RECORDS SUMMARY | 2024-11-26 06:56 | XMS_ITS | Encounter Summary ---
Author Organization [facility] Address [address] [place] [address] Care Team Providers Care Nurse Practical Name Role Phone Armando Branham MD Unavailable [phone] Armando Branham MD Primary Care Provider [phone] Jenn Poole SOLAR APPLICATIONS DEVELOPMENT ENGINEER Unavailable Unavailable Erick Martinez DO Unavailable [phone] Encounter Details Date Type Department Care Team (Late st Contact Info) Description 07/09/2023 Abstract [facility] [place] [facility] [address] [facility] 110 [place] [address] Armando Branham MD [address] [facility] 110 [place], [place] [address] Social History Tobacco Use Types Packs/Day Years [...] AM EDT Office Visit [facility] [place] [facility] [address] [facility] 110 [place] [address] Armando Branham MD [address] [facility] 110 [place], [place] [address] documented as of this encounter Visit Diagnoses Not on filedocumented in this encounter Care Teams Nurse Practical Relationship Specialty Start Date End Date Armando Branham MD [address] [facility] 110 [place] [address] PCP - Humana 04/30/17 Armando Branham MD [address] [facility] 110 [place] [address] PCP - General Internal Medicine 10/25/22 Jenn Poole NP [address] [facility] 110 [place] [address] Nurse Practitioner Neurology 07/22/24 Erick Martinez DO [address] [place] [address] Referring Physician Neurology 07/22/24 documented as of this encounter
--- OUTSIDE RECORDS SUMMARY | 2024-11-26 06:56 | XMS_ITS | Encounter Summary ---
Author Organization [facility] Address [address] [place] [address] Care Team Providers Care Lead Python Developer Name Role Phone Armando Branham MD Unavailable [phone] Armando Branham MD Primary Care Provider [phone] Jenn Poole PERSONAL BANKER Unavailable Unavailable Erick Martinez DO Unavailable [phone] Encounter Details Date Type Department Care Team (Late Contact Info) Description 08/09/2023 Abstract [facility] [place] [facility] [address] [facility] 110 [place] [address] Armando Branham MD [address] [facility] 110 [place] [address] Social History Tobacco Use Types [...] AM EDT Office Visit [facility] [place] [facility] [address] [facility] 110 [place] [address] Armando Branham MD [address] [facility] 110 [place] [address] documented as of this encounter Visit Diagnoses Not on filedocumented in this encounter Care Teams Lead Python Developer Relationship Specialty Start Date End Date Armando Branham MD [address] [facility] 110 [place] [address] PCP - Humana 04/30/17 Armando Branham MD [address] [facility] 110 [place] [address] PCP - General Internal Medicine 10/25/22 Jenn Poole NP [address] [facility] 110 [place] [address] Nurse Practitioner Neurology 07/22/24 Erick Martinez DO [address] [place] [address] Referring Physician Neurology 07/22/24 documented as of this encounter
--- OUTSIDE RECORDS SUMMARY | 2024-11-26 06:56 | XMS_ITS | Encounter Summary ---
Author Organization [facility] Address [address] [place] [address] Care Team Providers Care Welt Butter Hand Name Role Phone Armando Branham MD Unavailable [phone] Armando Branham MD Primary Care Provider [phone] Jenn Poole JUNIOR WEB DEVELOPER Unavailable Unavailable Erick Martinez DO Unavailable [phone] Encounter Details Date Type Department Care Team (Late st Contact Info) Description 11/24/2022 Abstract [facility] [place] [facility] [address] [facility] 110 [place] [address] Armando Branham MD [address] [facility] 110 [place], [place] [address] Social History Tobacco Use Types Packs/Day Years [...] AM EDT Office Visit [facility] [place] [facility] [address] [facility] 110 [place] [address] Armando Branham MD [address] [facility] 110 [place], [place] [address] documented as of this encounter Visit Diagnoses Not on filedocumented in this encounter Care Teams Welt Butter Hand Relationship Specialty Start Date End Date Armando Branham MD [address] [facility] 110 [place] [address] PCP - Humana 04/30/17 Armando Branham MD [address] [facility] 110 [place] [address] PCP - General Internal Medicine 10/25/22 Jenn Poole NP [address] [facility] 110 [place] [address] Nurse Practitioner Neurology 07/22/24 Erick Martinez DO [address] [place] [address] Referring Physician Neurology 07/22/24 documented as of this encounter
--- OUTSIDE RECORDS SUMMARY | 2024-11-26 06:56 | XMS_ITS | Encounter Summary ---
Author Organization [facility] Address [address] [place] [address] Care Team Providers Care Computer Numerical Control Machinist Name Role Phone Armando Branham MD Unavailable [phone] Armando Branham MD Primary Care Provider [phone] Jenn Poole SAFETY TECH Unavailable Unavailable Erick Martinez DO Unavailable [phone] Encounter Details Date Type Department Care Team (Late st Contact Info) Description 12/20/2022 Abstract [facility] [place] [facility] [address] [facility] 110 [place] [address] Armando Branham MD [address] [facility] 110 [place], [place] [address] Social History Tobacco Use Types Packs/Day Years [...] AM EDT Office Visit [facility] [place] [facility] [address] [facility] 110 [place] [address] Armando Branham MD [address] [facility] 110 [place], [place] [address] documented as of this encounter Visit Diagnoses Not on filedocumented in this encounter Care Teams Computer Numerical Control Machinist Relationship Specialty Start Date End Date Armando Branham MD [address] [facility] 110 [place] [address] PCP - Humana 04/30/17 Armando Branham MD [address] [facility] 110 [place] [address] PCP - General Internal Medicine 10/25/22 Jenn Poole NP [address] [facility] 110 [place] [address] Nurse Practitioner Neurology 07/22/24 Erick Martinez DO [address] [place] [address] Referring Physician Neurology 07/22/24 documented as of this encounter
--- OUTSIDE RECORDS SUMMARY | 2024-11-26 06:56 | XMS_ITS | Encounter Summary ---
Author Organization [facility] Address [address] [place] [address] Care Team Providers Care Trade Clerk Name Role Phone Armando Branham MD Unavailable [phone] Armando Branham MD Primary Care Provider [phone] Jenn Poole METHODS SPECIALIST ENGINEER Unavailable Unavailable Erick Martinez DO Unavailable [phone] Encounter Details Date Type Department Care Team (Late Contact Info) Description 02/13/2023 Abstract [facility] 112 [facility] 120 [place] [address] Tung Pool, DPAd 3006 [facility] 5 [place] [address] Social History Tobacco Use Types [...] Office Visit [facility] [place] [facility] 112 [facility] 110 [place] [phone] Armando Branham MD 112 [facility] 110 [place] [address] documented as of this encounter Visit Diagnoses Not on filedocumented in this encounter Care Teams Trade Clerk Relationship Specialty Start Date End Date Armando Branham MD [address] [facility] 110 [place] [address] PCP - [employer] 04/30/17 Armando Branham MD [address] [facility] 110 [place] [address] PCP - General Internal Medicine 10/25/22 Jenn Poole NP [address] [facility] 110 [place] [address] Nurse Practitioner Neurology 07/22/24 Erick Martinez DO [address] [place] [address] Referring Physician Neurology 07/22/24 documented as of this encounter
--- OUTSIDE RECORDS SUMMARY | 2024-11-26 06:56 | XMS_ITS | Clinical Summary ---
Author Organization [facility] Address [address] [place] [address] Care Team Providers Care Wraparound Facilitator Name Role Phone Armando Branham MD Unavailable Armando Branham MD Primary Care Provider [phone] Jenn Poole NP Unavailable Unavailable Erick Martinez DO Unavailable [phone] Allergies No known active allergies Medications amLODIPine [...] Care Team Description 11/25/2024 Refill [facility] [place] [facility] 112 [facility] 110 [place] [phone] Armando Branham MD Essential (primary) hypertension 11/11/2024 Abstract [facility] [place] [facility] 112 [facility] [address] [place] [phone] Armando Branham MD 10/15/2024 Telephone [facility] [place] [facility] [address] [facility] 110 [place] [address] Armando Branham MD Med Refill 10/11/2024 [facility]ill [facility] [place] [facility] [address] [facility] 110 [place] [address] Armando Branham MD Gastro-esophageal reflux disease with esophagitis 10/02/2024 [facility] [place] [facility] [address] [facility] 110 [place] [address] Ermelinda Tapia, PA Bilateral lower extremity edema 10/02/2024 [facility] [place] [facility] [address] [facility] [address] [place] [address] Ermelinda Tapia, PA Bilateral lower extremity edema 09/09/2024 10:00 AM EDT Office [facility] [place] [facility] [address] [facility] [address] [place] [address] Ermelinda Tapia, PA Benign essential hypertension (Primary Dx); Bilateral lower extremity edema 09/09/2024 Bamboo flowsheet [facility] [place] [facility] [address] [facility] [address] [place] [address] Ermelinda Tapia, PA 09/09/2024 Travel from Last [...] 9:30 AM EDT Office Visit [facility] [place] [facility] 112 [facility] 110 [place] [address] Armando Branham MD 112 [facility] 110 [place] [address] Health Maintenance Due Date Last Done Comments [...] Performing Organization Information Site ID: [id number] Name: [facility] Address: [address] [place] [address], [address] [place] [id number] Director: Dwayne Wynn MD us Ángela Rausch [facility] URINE ORDERABLES Final R esult [facility] * Colonoscopy (02/01/2015 12:00 PM EDT) Anatomical Region Laterality Modality Endoscopy 02/01/2015 12:0 0 PM EDT Narrative 02/01/2015 12:00 PM EDT PERFORMED AT [facility] LOCATION:[id number] diverticulosis/int. hemorrhoids Procedure Note CONVERSION, GENERIC - 09/14/2022 PERFORMED AT [facility] LOCATION:[id number] diverticulosis/int. hemorrhoids us Armando Branham MD ENDOSCOPY PROCEDURE ORDERABLES Final Result from Last 3 Months or Most Recently Relevant to Health Maintenance Insurance [facility] MEDICARE ADVANTAGE Care Teams Wraparound Facilitator Relationship Specialty Start Date End Date Armando Brnaham MD [address] [facility] 110 [place] [address] PCP - [employer] 04/30/17 Armando Branham MD [address] [facility] 110 [place] [address] PCP - General Internal Medicine 10/25/22 Jenn Poole NP [address] [facility] 110 [place] [address] Nurse Practitioner Neurology 07/22/24 Erick Martinez DO [address] [place] [address] Referring Physician Neurology 07/22/24
--- OUTSIDE RECORDS SUMMARY | 2024-11-26 06:56 | XMS_ITS | Encounter Summary ---
Author Organization [facility] Address [address] [facility] [place] [address] Care Team Providers Care Horse Race Timer Name Role Phone Oneida Branham MD Unavailable Oneida Branham MD Primary Care Provider [phone] Jenn Poole SEISMOMETER OPERATOR Unavailable Unavailable Erick Martinez DO Unavailable [phone] Encounter Details Date Type Department Care Team (Late st Contact Info) Description 08/23/2023 Clinisync Result Encounter [facility] External Department Unsolicited Oneida Branham MD [address] [facility] 110 [place], [place] [id number] Social History Tobacco Use Types Packs/Day Years [...] Visit [facility] [place] [facility] [address] [facility] 110 [place] [address] Oneida Branham MD [address] [facility] 110 [place], [place] [phone] documented as of this encounter Procedures Procedure Name Priority Date/Time Associated Diagnosis Comments CA ECHO DOPPLER COMPLETE 08/23/2023 3:50 PM EDT documented in this encounter Results * CA ECHO DOPPLER COMPLETE (08/23/2023 3:50 PM EDT) Anatomical Region Laterality Modality Other 08/23/2023 3:50 PM EDT Narrative 08/23/2023 3:51 PM EDT [address] [address] Cardiology Report Signed Patient: TOMÁS NORIEGA MR#: [id number] : 1945 Acct:[id number] Age/Sex: 78 / M ADM Date: 08/23/23 Loc: CARD Attending Dr: ONEIDA BRANHAM Ordering Physician: ONEIDA BRANHAM Date of Service: 08/23/23 Procedure(s): CA echo doppler complete Accession Number(s): [id number] cc: ONEIDA BRANHAM Patient Name: TOMÁS NORIEGA MR#: [id number] : 1945 Exam Date: 08/23/2023 Ordering Doctor: [...] Signed By: 08/23/23 1551 DD/ 1550 TD/TT: Electronic Components Assembler: Procedure Note Radiology, Radiologist, MD - 08/23/2023 [place] [address] Cardiology Report Signed Patient: TOMÁS NORIEGA AMR#: [id number] : 8Acct:[id number] Age/Sex: 78 / MADM Date: 08/23/23 Loc: CARD Attending Dr: ONEIDA BRANHAM Ordering Physician: ONEIDA BRANHAM Date of Service: 08/23/23 Procedure(s): CA echo doppler complete Accession Number(s): [id number] cc: ONEIDA BRANHAM Patient Name: TOMÁS NORIEGA MR#: [id number] : 1945 Exam Date: 08/23/2023 Ordering Doctor: [...] M.D. Signed By:08/23/23 1551 DD/ 1550 TD/TT: Electronic Components Assembler: Oneida Branham MD [facility] Final Result documented in this encounter Visit Diagnoses Not on filedocumented in this encounter Care Teams Horse Race Timer Relationship Specialty Start Date End Date Oneida Branham MD [address] [facility] 110 [place] [address] PCP - [employer] 04/30/17 Oneida Branham MD [address] [facility] 110 [place] [address] PCP - General Internal Medicine 10/25/22 Jenn Poole NP [address] [facility] 110 [place] [address] Nurse Practitioner Neurology 07/22/24 Erick Martinez DO [address] [place] [address] Referring Physician Neurology 07/22/24 documented as of this encounter
--- OUTSIDE RECORDS SUMMARY | 2024-11-26 06:56 | XMS_ITS | Encounter Summary ---
Author Organization [facility] Address [address] [place] [address] Care Team Providers Care Candy Wrapping Machine Operator Name Role Phone Armando Branham MD Unavailable [phone] Armando Branham MD Primary Care Provider [phone] Jenn Poole INTERNET PROJECT MANAGER Unavailable Unavailable Erick Martinez DO Unavailable [phone] Encounter Details Date Type Department Care Team (Late st Contact Info) Description 06/07/2023 Abstract [facility] [place] [facility] [address] [facility] 110 [place] [phone] Armando Branham MD [address] [facility] 110 [place], [place] [phone] Social History Tobacco Use Types Packs/Day Years [...] AM EDT Office Visit [facility] [place] [facility] [address] [facility] 110 [place] [phone] Armando Branham MD [address] [facility] 110 [place], [place] [phone] documented as of this encounter Visit Diagnoses Not on filedocumented in this encounter Care Teams Candy Wrapping Machine Operator Relationship Specialty Start Date End Date Armando Branham MD [address] [facility] 110 [place] [address] PCP - [employer] 04/30/17 Armando Branham MD [address] [facility] 110 [place] [address] PCP - General Internal Medicine 10/25/22 Jenn Poole NP [address] [facility] 110 [place] [address] Nurse Practitioner Neurology 07/22/24 Erick Martinez DO [address] [place] [address] Referring Physician Neurology 07/22/24 documented as of this encounter
--- OUTSIDE RECORDS SUMMARY | 2024-11-26 06:56 | XMS_ITS | Encounter Summary ---
Author Organization [facility] Address [address] [place] [address] Care Team Providers Care Spray Gunner Name Role Phone Armando Branham MD Unavailable [phone] Armando Branham MD Primary Care Provider [phone] Jenn Poole ENGINE ASSEMBLER Unavailable Unavailable Erick Martinez DO Unavailable [phone] Encounter Details Date Type Department Care Team (Late Contact Info) Description 08/14/2023 Orders Only [facility] [place] [facility] [address] [facility] 110 [place] [address] A, Unknown Practice [address] [place], [place] [phone] Social History Tobacco Use Types Packs/Day Years [...] AM EDT [facility] [place] [facility] [address] [facility] [address] [place] [address] Armando Branham MD [address] [facility] 110 [place] [address] documented as of this encounter Procedures Procedure Name Priority Date/Time Associated Diagnosis Comments ELECTROCARDIOGRAM REPORT Routine 024 9:48 AM EDT documented in this encounter Results * Electrocardiogram Report (08/10/2023 9:48 AM EDT) us Unknown Practice A IN CLINIC/BEDSIDE ORDERABLES Final Result documented in this encounter Visit Diagnoses Not on filedocumented in this encounter Care Teams Spray Gunner Relationship Specialty Start Date End Date Armando Branham MD [address] [facility] 110 [place] [address] PCP - [employer] 04/30/17 Armando Branham MD [address] [facility] 110 [place] [address] PCP - General Internal Medicine 10/25/22 Jenn Poole NP [address] [facility] 110 [place] [address] Nurse Practitioner Neurology 07/22/24 Erick Martinez DO [address] [place] [address] Referring Physician Neurology 07/22/24 documented as of this encounter
--- OUTSIDE RECORDS SUMMARY | 2024-11-26 06:56 | XMS_ITS | Encounter Summary ---
Author Organization [facility] Address [address] [place] [address] Care Team Providers Care Pipe Line Gauger Name Role Phone Armando Branham MD Primary Care Provider [phone] Reason for Visit * Reason Comments Med Refill Encounter Details Date Type Department Care Team (Late st Contact Info) Description 11/24/2024 Refill [facility] [address] [place] [address] Sonia Rich, ACCESS CLERK [address] [place] [phone] Essential hypertension Social History Tobacco Use Types [...] hypertension documented in this encounter Care Teams Pipe Line Gauger Relationship Specialty Start Date End Date Armando Branham MD PCP - General Internal Medicine 09/17/23 documented as of this encounter
--- OUTSIDE RECORDS SUMMARY | 2024-11-26 06:57 | XMS_ITS | CCD ---
Author Organization [facility] CliniSyct Care Team Providers Care [employer] Supervisor Name Role Phone REQUEST, DR NONE LISTED Attending Unavaila ble REQUEST, NONE LISTED Consulting Unavaila ble PARAG, DR MOHAMUD Primary Care Unavailable REQUEST, NONE LISTED Admitting Unavaila ble REQUEST, NONE LISTED Attending Unavaila ble REQUEST, NONE LISTED Consulting Unavaila ble REQUEST, NONE LISTED Admitting Unavaila ble PARAG, DR MOHAMUD Primary Care Unavailable SALVATORE MOYA Admitting Unavailable ORTEGA, DR JOE Neff Consulting Unavailable PARAG, DR MOHAMUD Primary Care Unavailable SALVATORE MOYA Attending Unavailable SALVATORE MOYA Consulting Unavailable PARAG, DR MOHAMUD Admitting Unavailable PARAG, DR MOHAMUD Attending Unavailable PARAG, DR MOHAMUD Consulting Unavailable MARCELLUSEBSARAH, DR PHILLY Stanton Consulting Unavailable Armando Branham MD Unavailable [phone] Armando Branham MD Primary Care Provider Virgilio MUNROE, Jenn Unavailable Nanette Martinez DO Unavailable [phone] ERMELINDA KIDD Attending Unavailable JENN TALAVERA Attending Unavailable VIRGILIO, JENN Attending Unavailable NANETTE MARTINEZ Attending Unavailable JENN TALAVERA Referring Unavailable ÁNGELA RAUSCH Attending Unavailable ERMELINDA KIDD Attending Unavailable NANETTE MARTINEZ Attending Unavailable VIRGILIO, JENN Attending Unavailable NANETTE MARTINEZ Attending Unavailable VIRGILIO, JENN Referring Unavailable TALAVERA, JENN Attending Unavailable NANETTE MARTINEZ Attending Unavailable VIRGILIO, JENN Referring Unavailable NASIR YADAV Admitting Unavailable NASIR YADAV Attending Unavailable JEANNETTE HWANG Attending Unavailable NASIR YADAV Attending Unavailable JEANNETTE HWANG Attending Unavailable NASIR YADAV Attending Unavailable XIOMARA SALINAS Attending Unavailable NASIR YADAV Referring Unavailable NASIR YADAV Referring Unavailable Armando Branham II Primary Care Provider Virgilio DUCKWORTH-DECK STEWARD-Jenn Caldwell Attending Provider Medications Current Medications Medication Drug Class(es) Dates Sig (Normalized) Sig (Original) acetaminophen 325 mg / HYDROcodone bitartrate 5 mg oral tablet (8 sources) Opioid Agonist Start: 09-29-2024 End: 09-29-2024 take 1 tablet by mouth once daily as needed for pain Hydrocodone-Aceta minophen 5-325 mg tablet Active 1 TAB PO Daily as needed for pain 30 September 29, 2024 Complies with drug therapy Start: 06-09-2024 End: 07-09-2024 take 1 tablet by mouth once daily as needed for pain HYDROcodone-acetaminophen ([place]) 5-325 MG tablet Indications: Lumbar facet arthropathy , Spinal stenosis of lumbar region, unspecified whether neurogenic claudication present , Radiculopathy, lumbosacral region Take 1 tablet by mouth Daily as needed for severe pain 30 tablet 06/09/2024 07/09/2024 Active Start: 03-06-2024 End: 04-05-2024 take 1 tablet by mouth once daily as needed for pain HYDROcodone-acetaminophen ([place]) 5-325 MG tablet Indications: Lumbar facet arthropathy , Spinal stenosis of lumbar region, unspecified whether neurogenic claudication present Take 1 tablet by mouth Daily as needed for severe pain 30 tablet 03/06/2024 04/05/2024 Active End: 03-06-2024 take 1 tablet by mouth every six hours as needed for pain HYDROcodone-acetaminophen ([place]) 5-325 MG tablet Take 1 tablet by mouth every 6 (six) hours if needed for severe pain 03/06/2024 Discontinued (Reorder) amiodarone hydrochloride 200 mg oral tablet (20 sources) Antiarrhythmic End: 09-09-2024 take 2 tablets by mouth at bedtime, then take 1 tablet by mouth in the morning amiodarone (Pacerone) 200 MG tablet TAKE 2 TABLETS BY MOUTH IN THE MORNING AND AT BEDTIME FOR 14 DAYS, THEN 1 TABLET IN THE MORNING 09/09/2024 Discontinued (Therapy completed) amLODIPine 5 mg oral tablet (20 sources) Dihydropyridine Calcium Channel Mary Start: 09-17-2023 take 1 tablet by mouth once daily amLODIPine (Norvasc) 5 MG tablet Indications: Essential (primary) hypertension (CMS/HCC) TAKE 1 TABLET BY MOUTH EVERY DAY 100 DAYS 90 tablet 5 09/17/2023 Active End: 09-09-2024 take 1 tablet by mouth once daily amLODIPine (Norvasc) 2.5 MG tablet Take 2.5 mg by mouth Daily 09/09/2024 Discontinued amoxicillin 875 mg oral tablet (2 sources) Penicillin-class Antibacterial Start: 05-21-2024 End: 05-31-2024 take 1 tablet by mouth in the morning amoxicillin (Amoxil) 875 MG tablet Indications: Right acute otitis media Take 1 tablet (875 mg) by mouth in the morning and 1 tablet (875 mg) before bedtime. Do all this for 10 days. 20 tablet 05/21/2024 05/31/2024 Active apixaban 5 mg oral tablet (20 sources) Factor Xa Inhibitor Start: 08-13-2024 take 1 tablet by mouth in the morning apixaban (Eliquis) 5 MG tablet Indications: Paroxysmal atrial fibrillation (CMS/HCC) Take 1 tablet (5 mg) by mouth in the morning and 1 tablet (5 mg) before bedtime. 60 tablet 11 08/13/2024 Active Start: 08-10-2023 take 1 tablet by ksenia th in the morning apixaban (Eliquis) 5 MG tablet Indications: Paroxysmal atrial fibrillation (CMS/HCC) Take 1 tablet (5 mg) by mouth in the morning and 1 tablet (5 mg) before bedtime. 60 tablet 11 08/10/2023 Active Blood Pressure kit (20 sources) Start: 08-29-2023 End: 08-28-2024 Blood Pressure kit Indications: Benign essential hypertension (CMS/HCC) , Paroxysmal atrial fibrillation (CMS/HCC) 1 Device Daily 1 kit 08/29/2023 08/28/2024 Active fluticasone propionate 0.05 mg/actuat metered dose nasal spray (12 sources) Corticosteroid Start: 06-12-2024 End: 09-09-2024 take 1-2 spray(s) nasal route once daily fluticasone (Flonase) 50 MCG/ACT nasal spray Indications: Right acute otitis media ADMINISTER 1-2 SPRAYS INTO EACH NOSTRIL DAILY SHAKE GENTLY. BEFORE FIRST USE, PRIME PUMP. AFTER USE, CLEAN TIP AND REPLACE CAP 48 mL 3 06/12/2024 09/09/2024 Discontinued (Therapy completed) Start: 05-21-2024 take 1-2 spray(s) na jude route once daily fluticasone (Flonase) 50 MCG/ACT nasal spray Indications: Right acute otitis media Administer 1-2 sprays into each nostril Daily Shake gently. Before first use, prime pump. After use, clean tip and replace cap. 16 g 05/21/2024 Active furosemide 20 mg oral tablet (5 sources) Loop Diuretic Start: 08-13-2024 End: 10-09-2024 take 1 tablet by mouth once daily as needed furosemide (Lasix) 20 MG tablet Indications: Bilateral lower extremity edema Take 1 tablet (20 mg) by mouth Daily as needed (Swelling) 30 tablet 09/09/2024 10/09/2024 Active hydroCHLOROthiazide 25 mg / valsartan 320 mg oral tablet (20 sources) Thiazide Diuretic, Angiotensin 2 Receptor Mary Start: 09-19-2023 take 1 tablet by mouth once daily valsartan-hydroCH LOROthiazide (Diovan-HCT) 320-25 MG tablet Indications: Essential (primary) hypertension (CMS/HCC) Take 1 tablet by mouth Daily 90 tablet 5 09/19/2023 Active 24 hr metoprolol succinate 25 mg extended release oral tablet (13 sources) beta-Adrenergic Mary Start: 08-29-2023 End: 08-28-2024 take 1 tablet by mouth once daily metoprolol succinate XL (Toprol-XL) 25 MG 24 hr tablet Indications: Benign essential hypertension (CMS/HCC) , Paroxysmal atrial fibrillation (CMS/HCC) Take 1 tablet (25 mg) by mouth Daily Do not crush or chew. 90 tablet 3 08/29/2023 05/21/2024 Discontinued (Therapy completed) nebivolol 10 mg oral tablet (19 sources) Start: 02-06-2024 End: 08-04-2024 take 1 tablet by mouth in the morning nebivolol (Bystolic) 10 MG tablet Take 10 mg by mouth in the morning. 02/06/2024 Active omeprazole 40 mg delayed release oral capsule (19 sources) Proton Pump Inhibitor Start: 12-19-2023 take 1 capsule by mouth before mealtime omeprazole (PriLOSEC) [address] capsule Take 40 mg by mouth in the morning. Take before meals. 12/19/2023 Active microencapsulated potassium chloride 10 meq extended release oral tablet (2 sources) Start: 09-09-2024 End: 10-09-2024 take 1 tablet by mouth once daily potassium chloride CR (Klor-Con M10) 10 MEQ ER tablet Indications: Bilateral lower extremity edema Take 1 tablet (10 mEq) by mouth Daily Do not crush or chew. Take when he takes the Furosemide 30 tablet 09/09/2024 10/09/2024 Active RABEprazole sodium 20 mg delayed release oral tablet (20 sources) Proton Pump Inhibitor Start: 09-19-2023 take 1 tablet by mouth once daily RABEprazole (Aciphex) 20 MG EC tablet Indications: Gastro-esophageal reflux disease with esophagitis TAKE 1 TABLET BY MOUTH EVERY DAY FOR 100 DAYS 90 tablet 5 09/19/2023 Active tiZANidine 4 mg oral tablet (13 sources) Central alpha-2 Adrenergic Agonist End: 05-21-2024 take 4 mg by mouth at bedtime TIZANIDINE HCL PO Take 4 mg by mouth at bedtime 05/21/2024 Discontinued (Therapy completed) Completed/Discontinued Medications Medication Drug Class(es) Dates Sig (Normalized) Sig (Original) bupivacaine hydrochloride 2.5 mg/ml injectable solution (12 sources) Amide Local Anesthetic Start: 07-29-2024 End: 07-29-2024 bupivacaine (Marcaine) 0.25 % injection 2.5 mg Start: 07-29-2024 End: 07-29-2024 2.5 mg (1 mL), Injection, On ce, On Sun07/29/24 at 0915, For 1 dose Start: 07-29-2024 End: 07-29-2024 bupivacaine (Marcaine) 0.25 % injection 2.5 mg Start: 07-29-2024 End: 07-29-2024 2.5 mg (1 mL), Injection, On ce, On Sun07/29/24 at 0915, For 1 dose Start: 04-09-2024 End: 04-09-2024 bupivacaine (Marcaine) 0.25 % injection 2.5 mg Start: 04-09-2024 End: 04-09-2024 bupivacaine (Marcaine) 0.25 % injection 2.5 mg Start: 04-09-2024 End: 04-09-2024 2.5 mg (1 mL), Injection, On ce, On Sun04/09/24 at 1030, For 1 dose Start: 04-09-2024 End: 04-09-2024 2.5 mg (1 mL), Injection, On ce, On Sun04/09/24 at 1030, For 1 dose Start: 01-16-2024 End: 01-16-2024 bupivacaine (Marcaine) 0.25 % injection 2.5 mg Start: 01-16-2024 End: 01-16-2024 bupivacaine (Marcaine) 0.25 % injection 2.5 mg Start: 01-16-2024 End: 01-16-2024 2.5 mg (1 mL), Injection, On ce, On Sun01/16/24 at 1300, For 1 dose Start: 01-16-2024 End: 01-16-2024 2.5 mg (1 mL), Injection, On ce, On Sun01/16/24 at 1300, For 1 dose dexamethasone phosphate 10 mg/ml injectable solution (12 sources) Corticosteroid Start: 07-29-2024 End: 07-29-2024 dexAMETHasone sod phos (Decadron) injection 10 mg Start: 07-29-2024 End: 07-29-2024 10 mg (1 mL), Injection, Onc e, On Sun07/29/24 at 0915, For 1 dose Start: 07-29-2024 End: 07-29-2024 dexAMETHasone sod phos (Deca dron) injection 10 mg Start: 07-29-2024 End: 07-29-2024 10 mg (1 mL), Injection, Onc e, On Sun07/29/24 at 0915, For 1 dose Start: 04-09-2024 End: 04-09-2024 dexAMETHasone sod phos (Deca dron) injection 10 mg Start: 04-09-2024 End: 04-09-2024 dexAMETHasone sod phos (Deca dron) injection 10 mg Start: 04-09-2024 End: 04-09-2024 10 mg (1 mL), Injection, Onc e, On Sun04/09/24 at 1030, For 1 dose Start: 04-09-2024 End: 04-09-2024 10 mg (1 mL), Injection, Onc e, On Sun04/09/24 at 1030, For 1 dose Start: 01-16-2024 End: 01-16-2024 dexAMETHasone sod phos (Deca dron) injection 10 mg Start: 01-16-2024 End: 01-16-2024 dexAMETHasone sod phos (Deca dron) injection 10 mg Start: 01-16-2024 End: 01-16-2024 10 mg (1 mL), Injection, Onc e, On Sun01/16/24 at 1300, For 1 dose Start: 01-16-2024 End: 01-16-2024 10 mg (1 mL), Injection, Onc e, On Sun01/16/24 at 1300, For 1 dose Problems Active Problems Problem Classification Problem Date Documented Date Episodic/Chronic Aortic; peripheral; and visceral artery aneurysms (4 sources) Abdominal aortic aneurysm, without rupture; Translations: [ABDOMINAL AORTIC ANEUR W/O RUPTURED] Onset: 03-26-2020 Chronic Cardiac dysrhythmias (20 sources) Paroxysmal atrial fibrillation; Translations: [Paroxysmal atrial fibrillation] Onset: 08-10-2023 08-10-2023 Chronic Disorders of lipid metabolism (20 sources) Pure hypercholesterolemia; Translations: [Pure hypercholesterolemia, unspecified] Onset: 10-23-2022 10-23-2022 Chronic Diverticulosis and diverticulitis (20 sources) Diverticulosis of colon; Translations: [Diverticulosis of large intestine without perforation or abscess without bleeding] Onset: 10-23-2022 10-23-2022 Chronic Esophageal disorders (20 sources) Gastro-esophageal reflux disease with esophagitis; Translations: [Gastroesophageal reflux disease with esophagitis] Onset: 10-23-2022 10-23-2022 Chronic Essential hypertension (20 sources) Benign essential hypertension; Translations: [Essential (primary) hypertension] Onset: 10-23-2022 10-23-2022 Chronic Hypertension with complications and secondary hypertension (2 sources) Hypertensive heart disease without heart failure; Translations: [Hypertensive heart disease without heart failure] Onset: 02-06-2024 Chronic Mood disorders (20 sources) Depressive disorder; Translations: [Depressive disorder] Onset: 10-23-2022 10-23-2022 Chronic Osteoarthritis (20 sources) Osteoarthritis; Translations: [Primary generalized (osteo)arthritis] Onset: 10-23-2022 10-23-2022 Chronic Other connective tissue disease (20 sources) Cramp in lower limb; Translations: [Sleep related leg cramps] Onset: 09-16-2023 09-16-2023 Chronic Other lower respiratory disease (2 sources) Other forms of dyspnea; Translations: [Other forms of dyspnea] Onset: 10-15-2024 Episodic Other nervous system disorders (20 sources) Polyneuropathy; Translations: [Polyneuropathy, unspecified] Onset: 09-16-2023 09-16-2023 Chronic Other nutritional; endocrine; and metabolic disorders (2 sources) Obesity caused by energy imbalance; Translations: [Morbid (severe) obesity due to excess calories] 07-30-2024 Chronic Other nutritional; endocrine; and metabolic disorders (2 sources) Body mass index 30+ - obesity; Translations: [Body mass index (BMI) 39.0-39.9, adult] 07-30-2024 Chronic Otitis media and related conditions (2 sources) Acute right otitis media; Translations: [Otitis media, unspecified, right ear] 05-21-2024 Episodic Pulmonary heart disease (4 sources) Pulmonary hypertension; Translations: [Pulmonary hypertension, unspecified] Onset: 10-15-2024 07-30-2024 Chronic Residual codes; unclassified (4 sources) Bilateral lower limb edema; Translations: [Localized edema] Onset: 09-09-2024 09-09-2024 Episodic Rheumatoid arthritis and related disease (2 sources) Arthropathy of lumbar facet joint 03-06-2024 Chronic Spondylosis; intervertebral disc disorders; other back problems (20 sources) Other spondylosis with radiculopathy, lumbar region; Translations: [Lumbar spondylosis] Onset: 11-17-2020 10-23-2022 Chronic Spondylosis; intervertebral disc disorders; other back problems (20 sources) Spinal stenosis, lumbar region without neurogenic claudication; Translations: [Lumbar radiculopathy] Onset: 09-28-2020 Episodic Unclassified (2 sources) Other persistent atrial fibrillation; Translations: [Other persistent atrial fibrillation] Onset: 12-19-2023 Past or Other Problems Problem Classification Problem Date Documented Date Episodic/Chronic Diabetes mellitus with complications (20 sources) Type 2 diabetes mellitus; Translations: [Type 2 diabetes mellitus with other specified complication] Onset: 08-01-2023 Resolved: 05-21-2024 08-01-2023 Chronic Diabetes mellitus without complication (16 sources) Impaired fasting glycemia; Translations: [Impaired fasting glucose] Onset: 05-21-2024 05-21-2024 Episodic Other aftercare (20 sources) Patient encounter status; Translations: [Other terminal carman (current) drug therapy] Onset: 09-16-2023 09-16-2023 Episodic Other connective tissue disease (20 sources) Plantar fasciitis of right foot; Translations: [Plantar fascial fibromatosis] Onset: 11-02-2022 11-02-2022 Episodic Other connective tissue disease (20 sources) Fibromyalgia; Translations: [Fibromyalgia] Onset: 09-16-2023 09-16-2023 Episodic Other connective tissue disease (20 sources) Musculoskeletal finding; Translations: [Unspecified symptoms and signs involving the musculoskeletal system] Onset: 09-16-2023 09-16-2023 Episodic Other connective tissue disease (20 sources) Muscle pain; Translations: [Myalgia, unspecified site] Onset: 09-16-2023 09-16-2023 Episodic Other connective tissue disease (20 sources) Enthesopathy of hip region; Translations: [Other specified enthesopathies of unspecified lower limb, excluding foot] Onset: 09-16-2023 09-16-2023 Episodic Other connective tissue disease (20 sources) Spasm; Translations: [Other muscle spasm] Onset: 09-16-2023 09-16-2023 Episodic Other diseases of veins and lymphatics (20 sources) Peripheral venous insufficiency; Translations: [Venous insufficiency (chronic) (peripheral)] Onset: 08-10-2023 08-10-2023 Episodic Other nervous system disorders (20 sources) Skin sensation disturbance; Translations: [Unspecified disturbances of skin sensation] Onset: 09-16-2023 09-16-2023 Episodic Other nervous system disorders (20 sources) Paresthesia; Translations: [Paresthesia of skin] Onset: 09-16-2023 09-16-2023 Episodic Results Test Name Value Interpretation Reference Range Facility Office Visiton 10-15-2024 Follow-up visit [id number] Harjeet Noriega 1945 M Date Provider Department Center 10/15/2024 JEANNETTE ARGU[facility] Family History Problem Relation Age of Onset Other Mother Heart failure Mother Family Status - Relation Status Age at Mother Father Level of Service:45649 [place] OFFICE/OUTPATIENT ESTABLISHED MOD MDM 30 MIN Reason for Visit and Comments: Atrial Fibrillation [80] Hypertension [527341] Normal [facility] ALBUMIN, RANDOM URINE W/CREA Georgi 07-31-2024 ALBUMIN, URINE 1.8 mg/dL Normal See Note: [facility] Comment on above: Result Comment: Refe rence Range: Reference Range Not established Performed By: #### 6 517, 5363, 1759, 08279, 7600 #### [facility] [address], [address] [place] [address] Branch Account Manager: Dwayne Wynn MD ALBUMIN/CREATININE RATIO, RANDOM URINE 11 mg/g creat Normal <30 [facility] Comment on above: Result Comment: The ADA defines abnormalities in albumin excretion as follows: Albuminuria Category Result (mg/g creatinine) Normal to Mildly increased <30 Moderately increased 30-299 Severely increased > OR = 300 The ADA recommends that at least two of three specimens collected within a 3-6 month period be abnormal before considering a patient to be within a diagnostic category. Performed By: #### 6 517, 5363, 1759, 87128, 7600 #### [facility] [place] [address] Branch Account Manager: Dwayne Wynn MD Creatinine (U) [Mass/Vol] 168 mg/dL Normal 20-320 [facility] Comment on above: Performed By: #### 6 517, 5363, 1759, 07977, 7600 #### [facility] [address], [address] [place] [address] Branch Account Manager: Dwayne Wynn MD CBC (H/H, RBC, INDICES, WBC, PLT)on 07-31-2024 Erythrocyte distribution width (RBC) [Ratio] 12.8 % Normal 11.0-15.0 [facility] Comment on above: Performed By: #### 6 517, 5363, 1759, 92461, 7600 #### [facility] [place] [address] Branch Account Manager: Dwayne Wynn MD Hematocrit (Bld) [Volume fraction] 37.5 % Low 38.5-50.0 [facility] Comment on above: Performed By: #### 6 517, 5363, 175, 47451, 7600 #### [facility] [address], [address] [place] [address] Branch Account Manager: Dwayne Wynn MD Hemoglobin (Bld) [Mass/Vol] 12.6 g/dL Low 13.2-17.1 [facility] Comment on above: Performed By: #### 6 517, 5363, 175, , 7600 #### [facility] [place] [address] Branch Account Manager: Dwayne Wynn MD MCH (RBC) [Entitic mass] 31.4 pg Normal 27.0-33.0 [facility] Comment on above: Performed By: #### 6 517, 53, 175, , 0 #### [facility] [place] [address] Branch Account Manager: Dwayne Wynn MD MCHC (RBC) [Mass/Vol] 33.6 g/dL Normal 32.0-36.[address] [facility] Comment on above: Result Comment: For adults, a slight decrease in the calculated MCHC value (in the range of 30 to 32 g/dL) is most likely not clinically significant; however, it should be interpreted with caution in correlation with other red cell parameters and the patient's clinical condition. Performed By: #### 6 517, 53, 175, 26076, 7600 #### [facility] [place] [address] Branch Account Manager: Dwayne Wynn MD MCV (RBC) [Entitic vol] 93.5 fL Normal 80.0-100.0 [facility] Comment on above: Performed By: #### 6 517, 5363, 175, 98864, 7600 #### [facility] [place] [address] Branch Account Manager: Dwayne Wynn MD Platelet mean volume (Bld) [Entitic vol] 11.5 fL Normal 7.5-12.5 [facility] Comment on above: Performed By: #### 6 517, 5363, 1759, 03946, 7600 #### [facility] of [place] [address] Branch Account Manager: Dwayne Wynn MD Platelets (Bld) [#/Vol] 276 10*3/uL Normal 140-400 [facility] Comment on above: Performed By: #### 6 517, 5363, 1759, 98999, 7600 #### [facility] [place] [address] Branch Account Manager: Dwayne Wynn MD RBC (Bld) [#/Vol] 4.01 10*6/uL Low 4.20-5.80 [facility] Comment on above: Performed By: #### 6 517, 5363, 1759, 94101, 7600 #### [facility] [place] [address] Branch Account Manager: Dwayne Wynn MD WBC (Bld) [#/Vol] 12.4 10*3/uL High 3.8-10.8 [facility] Comment on above: Performed By: #### 6 517, 5363, 1759, 12478, 7600 #### [facility] [place] [address] Branch Account Manager: Dwayne Wynn MD COMPREHENSIVE METABOLIC PANE [facility] 07-31-2024 Albumin [Mass/Vol] 4.1 g/dL Normal 3.6-5.1 [facility] Comment on above: Performed By: #### 6 517, 5363, 1759, 52528, 7600 #### [facility] [place] [address] Branch Account Manager: Dwayne Wynn MD Albumin/Globulin [Mass ratio] 1.6 {ratio} Normal 1.0-2.5 [facility] Comment on above: Performed By: #### 6 517, 5363, 1759, 24302, 7600 #### [facility] of [address], [address] [place] [address] Branch Account Manager: Dwayne Wynn MD ALP [Catalytic activity/Vol] 80 U/L Normal 35-144 [facility] Comment on above: Performed By: #### 6 517, 5363, 1759, 97472, 7600 #### [facility] of [address], [address] [place] [address] Branch Account Manager: Dwayne Wynn MD ALT [Catalytic activity/Vol] 22 U/L Normal 9-46 [facility] Comment on above: Performed By: #### 6 517, 5363, 1759, 70439, 7600 #### [facility] [place] [address] Branch Account Manager: Dwayne Wynn MD AST [Catalytic activity/Vol] 17 U/L Normal 10-35 [facility] Comment on above: Performed By: #### 6 517, 5363, 1759, 66994, 7600 #### [facility] [place] [address] Branch Account Manager: Dwayne Wynn MD Bilirubin [Mass/Vol] 0.4 mg/dL Normal 0.2-1.2 [facility] Comment on above: Performed By: #### 6 517, 5363, 1759, 55240, 7600 #### [facility] [place] [address] Branch Account Manager: Dwayne Wynn MD Calcium [Mass/Vol] 9.6 mg/dL Normal 8.6-10.3 [facility] Comment on above: Performed By: #### 6 517, 5363, 1759, 79206, 7600 #### [facility] [place] [address] Branch Account Manager: Dwayne Wynn MD Chloride [Moles/Vol] 107 mmol/L Normal 98-110 [facility] Comment on above: Performed By: #### 6 517, 5363, 1759, 94176, 7600 #### [facility] [place] [address] Branch Account Manager: Dwayne Wynn MD CO2 [Moles/Vol] 26 mmol/L Normal 20-32 [facility] Comment on above: Performed By: #### 6 517, 5363, 1759, 62825, 7600 #### [facility] [address], [address] [place] [address] Branch Account Manager: Dwayne Wynn MD Creatinine [Mass/Vol] 0.87 mg/dL Normal 0.70-1.[address] [facility] Comment on above: Performed By: #### 6 517, 5363, 1759, 06774, 7600 #### [facility] [place] [address] Branch Account Manager: Dwayne Wynn MD GFR/1.73 sq M.predicted among non-blacks MDRD (S/P/Bld) [Vol rate/Area] 89 mL/min/{1.73_m2} Normal > OR = 60 [facility] Comment on above: Performed By: #### 6 517, 5363, 1759, 02448, 7600 #### [facility] [place] [address] Branch Account Manager: Dwayne Wynn MD Globulin (S) [Mass/Vol] 2.6 g/dL Normal 1.9-3.7 [facility] Comment on above: Performed By: #### 6 517, 5363, 1759, 04941, 7600 #### [facility] [place] [address] Branch Account Manager: Dwayne Wynn MD Glucose [Mass/Vol] 122 mg/dL High 65-99 [facility] Comment on above: Result Comment: Fasting reference interval For someone without known diabetes, a glucose value between 100 and 125 mg/dL is consistent with prediabetes and should be confirmed with a follow-up test. Performed By: #### 6 517, 5363, 1759, 42132, 7600 #### [facility] [place] [address] Branch Account Manager: Dwayne Wynn MD Potassium [Moles/Vol] 4.0 mmol/L Normal 3.5-5.[address] [facility] Comment on above: Performed By: #### 6 517, 5363, 1759, 90388, 7600 #### [facility] [place] [address] Branch Account Manager: Dwayne Wynn MD Protein [Mass/Vol] 6.7 g/dL Normal 6.1-8.1 [facility] Comment on above: Performed By: #### 6 517, 5363, 1759, 16950, 7600 #### [facility] [place] [address] Branch Account Manager: Dwayne Wynn MD Sodium [Moles/Vol] 142 mmol/L Normal 135-146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 Start: 04-09-2024 End: 04-09-2024 Bamboo flowsheet Nanette Martinez DO Work Phone: [facility] [place] [facility] Start: 04-09-2024 End: 04-09-2024 Patient encounter procedure Cruzitonathan Alfonsoett DO Work Phone: [facility] [place] [facility] Comment on above: Lumbar facet arthrop athy; Spinal stenosis of lumbar region, unspecified whether neurogenic claudication present Start: 04-09-2024 End: 04-09-2024 ambulatory NANETTE MARTINEZ Not Available Start: 04-08-2024 End: 04-08-2024 ambulatory [facility] Start: 03-12-2024 End: 03-12-2024 Clinisync Result Encounter Jenn Talavera SLOTS MANAGER Work Phone: [facility] Unsolicited Start: 03-12-2024 End: 03-12-2024 Clinisync Result Encounter Jenn Talavera SLOTS MANAGER Work Phone: [facility] Unsolicited Start: 03-06-2024 End: 03-06-2024 Bamboo flowsheet Jenn Talavera SLOTS MANAGER Work Phone: [facility] [place] [facility] Start: 03-06-2024 End: 03-06-2024 Bamboo flowsheet Jenn Talavera SLOTS MANAGER Work Phone: [facility] [place] [facility] Start: 03-06-2024 End: 03-06-2024 Office outpatient visit 25 minutes Jenn Talavera SLOTS MANAGER Work Phone: [facility] [place] [facility] Comment on above: Lumbar facet arthrop athy (Primary Dx); Spinal stenosis of lumbar region, unspecified whether neurogenic claudication present; Radiculopathy, lumbosacral region; Encounter for medication monitoring; Nocturnal leg cramps; Polyneuropathy Start: 03-06-2024 End: 03-06-2024 ambulatory JENN VIRGILIO Not Available Start: 02-06-2024 End: 02-06-2024 ambulatory JEANNETTE HWANG [facility] Start: 01-18-2024 End: 01-18-2024 ambulatory XIOMARAVLADISLAV SALINAS [facility] Start: 01-16-2024 End: 01-16-2024 Bamboo flowsheet Nanette Martinez DO [facility] Start: 01-16-2024 End: 01-16-2024 Bamboo flowsheet Nanette Martinez DO [facility] Start: 01-16-2024 End: 01-16-2024 ambulatory NANETTE MARTINEZ Not Available Start: 01-16-2024 End: 01-16-2024 Patient encounter procedure Nanette Martinez DO Work Phone: [facility] Comment on above: Lumbar facet arthrop athy (Primary Dx) Start: 12-19-2023 ambulatory [facility] Start: 12-19-2023 End: 12-19-2023 ambulatory [facility] Start: 12-12-2023 End: 12-12-2023 ambulatory JENN TALAVERA Not Available Start: 12-11-2023 End: 12-11-2023 ambulatory [facility] Start: 10-17-2023 End: 10-17-2023 ambulatory NANETTE MARTINEZ Not Available Start: 09-17-2023 End: 09-17-2023 ambulatory JENN TALAVERA Not Available Start: 09-28-2020 End: 09-29-2020 ambulatory SALVATORE MOYA Facility:[facility] Start: 08-03-2020 End: 08-04-2020 ambulatory NONE LISTED REQUEST Facility:[facility] Start: 07-12-2020 End: 07-13-2020 ambulatory NONE LISTED REQUEST Facility:[facility] Start: 03-26-2020 End: 03-27-[address] ARMANDO BRANHAM Facility:[facility] Procedures Date Procedure Procedure Detail Performing Clinician Start: 07-30-2024 Hemoglobin glycosyla benjamín a1c Ángela Rausch SLOTS MANAGER Work Phone: Start: 04-01-2025 NERVE BLOCK Jenn alexis SLOTS MANAGER Work Phone: Start: 05-21-2024 Hemoglobin glycosyla benjamín a1c Ermelinda CA Work Phone: Start: 03-12-2024 ALL VITAMIN B6 Jenn bob SLOTS MANAGER Work Phone: Start: 03-12-2024 [facility] DRUG SCREEN RAPI D (URINE) Jenn Talavera SLOTS MANAGER Work Phone: Plan of Treatment Date Care Activity Detail Author Start: 07-30-2025 Medicare Annual Wellness (AWV) Medicare Annual Wellness (AWV) [facility] Start: 07-30-2025 Urine screening for protein Diabetes: Urine Protein Screening [facility] Start: 12-16-2024 End: 12-16-2024 Patient encounter procedure 12/16/2024 9:00 AM EDT Office Visit [facility] [address] [place] [id number] Nanette Martinez DO [address] [place], [place] [id number] [facility] Start: 12-03-2024 End: 12-03-2024 Patient encounter procedure 12/03/2024 9:30 AM EDT Office Visit [facility] [address] [facility] [address] [place] [phone] Armando Branham MD [address] [facility] [address] [place] [address] [facility] Start: 11-11-2024 End: 11-11-2024 Patient encounter procedure 11/11/2024 8:40 AM EDT Office Visit [facility] [address] [place] [phone] Jenn Talavera NP [address] [place] [phone] [facility] Start: 10-29-2024 Hemoglobin A1c measurement Diabetes: Hemoglobin A1C [facility] Start: 09-09-2024 End: 09-09-2024 Patient encounter procedure 09/09/2024 10:00 AM EDT Office Visit [facility] [address] [facility] [address] [place] [phone] Ermelinda Kidd PA [address] [facility] [address] [place] [address] Arrived [facility] Comment on above: Arrived Start: 08-19-2024 Hemoglobin A1c measurement Diabetes: Hemoglobin A1C [facility] Start: 08-07-2024 Urine screening for protein Diabetes: Urine Protein Screening [facility] Start: 07-31-2024 Medicare Annual Wellness (AWV) Medicare Annual Wellness (AWV) [facility] Start: 07-30-2024 End: 07-30-2025 CBC panel - Blood by Automated count CBC Lab Routine Benign essential hypertension (CMS/HCC) Impaired fasting glucose Expected: 07/30/2024 (Approximate), Expires: 07/30/2025 [facility] Comment on above: Expected: 07/30/2024 (Approximate), Expi res: 07/30/2025 Start: 07-30-2024 End: 07-30-2025 Comprehensive metabolic 2000 panel - Serum or Plasma Comprehensive metabolic panel Lab Routine Benign essential hypertension (CMS/HCC) Impaired fasting glucose Expected: 07/30/2024 (Approximate), Expires: 07/30/2025 [facility] Comment on above: Expected: 07/30/2024 (Approximate), Expi res: 07/30/2025 Start: 07-30-2024 End: 07-30-2025 Lipid 1996 panel - Serum or Plasma Lipid panel Lab Routine Pure hypercholesterolemia (CMS/HCC) Expected: 07/30/2024 (Approximate), Expires: 07/30/2025 [facility] Comment on above: Expected: 07/30/2024 (Approximate), Expi res: 07/30/2025 Start: 07-30-2024 End: 07-30-2025 Microalbumin/Creatinin e panel in random Urine Microalbumin / creatinine, urine ratio Lab Routine Type 2 diabetes mellitus with other specified complication, without long-term current use of insulin (CMS/HCC) Expected: 07/30/2024 (Approximate), Expires: 07/30/2025 [facility] Comment on above: Expected: 07/30/2024 (Approximate), Expi res: 07/30/2025 Start: 07-30-2024 End: 07-30-2025 Prostate specific Ag [Mass/volume] in Serum or Plasma PSA Lab Routine Screening for prostate cancer Expected: 07/30/2024 (Approximate), Expires: 07/30/2025 [facility] Work Phone: Comment on above: Expected: 07/30/2024 (Approximate), Expi res: 07/30/2025 Start: 07-30-2024 End: 07-30-2024 Patient encounter procedure [facility] Start: 07-30-2024 End: 07-30-2024 Patient encounter procedure 07/30/2024 8:30 AM EDT Office Visit [facility] [address] [place] [address] [place] [phone] Ángela Rausch, SLOTS MANAGER [address] [facility] [address] [place] [address] [facility] Start: 07-29-2024 End: 07-29-2024 Patient encounter procedure 07/29/2024 9:00 AM EDT Office Visit [facility] [address] [place] [address] Nanette Martinez DO [address] [place] [address] [address] [facility] Comment on above: Arrived Start: 07-22-2024 End: 07-22-2024 Patient encounter procedure [facility] [place] [facility] Start: 05-21-2024 End: 05-21-2024 Patient encounter procedure 05/21/2024 10:30 AM EST Office Visit [facility] [address] [place] [address] [place] [address] Ermelinda Kidd PA [address] [place] [address] [place] [address] Arrived [facility] Comment on above: Arrived Start: 04-09-2024 End: 03-06-2025 Nerve Block Nerve Block Procedures Routine Lumbar facet arthropathy Spinal stenosis of lumbar region, unspecified whether neurogenic claudication present Expected: 04/09/2024 (Approximate), Expires: 03/06/2025 [facility] Comment on above: Expected: 04/09/2024 (Approximate), Expi res: 03/06/2025 Start: 04-09-2024 End: 04-09-2024 Patient encounter procedure [facility] Comment on above: Arrived Start: 03-06-2024 End: 03-06-2025 Drugs of abuse panel - Urine by Screen method Toxicology screen, urine Lab Routine Encounter for medication monitoring Expected: 03/06/2024 (Approximate), Expires: 03/06/2025 [facility] Work Phone: Comment on above: Expected: 03/06/2024 (Approximate), Expi res: 03/06/2025 Start: 03-06-2024 End: 03-06-2025 Vitamin B6 Vitamin B6 Lab Routine Polyneuropathy Expected: 03/06/2024 (Approximate), Expires: 03/06/2025 [facility] Comment on above: Expected: 03/06/2024 (Approximate), Expi res: 03/06/2025 Start: 03-06-2024 End: 03-06-2024 Patient encounter procedure 03/06/2024 8:20 AM EST Office Visit [facility] [address] [place] [phone] Jenn Talavera NP [address] [place] [phone] Lumbar facet arthropathy (Primary Dx); Spinal stenosis of lumbar region, unspecified whether neurogenic claudication present; Radiculopathy, lumbosacral region; Encounter for medication monitoring; Nocturnal leg cramps; Polyneuropathy [facility] Comment on above: Lumbar facet arthropathy (Primary Dx); Spinal stenosis of lumbar region, unspecified whether neurogenic claudication present; Radiculopathy, lumbosacral region; Encounter for medication monitoring; Nocturnal leg cramps; Polyneuropathy Start: 03-05-2024 End: 03-05-2024 Patient encounter procedure 03/05/2024 9:40 AM EST Office Visit [facility] [address] [place] [address] Jenn Talavera, SLOTS MANAGER [address] [place] [address] [facility] Start: 12-30-2023 Influenza vaccination Influenza Vaccine (#1) [facility] Start: 10-31-2023 Hemoglobin A1c measurement Diabetes: Hemoglobin A1C [facility] Start: 08-05-1957 Glaucoma screening Diabetes: Retinopathy Screening [facility] Patient Education Low back pain in adults [facility] Work Phone: Immunizations Immunization Date Immunization Notes Care Provider Fa [facility] 02-24-2023 Influenza, Seasonal, Quadrivalent, Adjuvanted Christopher Michelle DO Work Phone: [facility] 02-24-2023 influenza virus vacc ine, unspecified formulation Christopher Michelle DO Work Phone: [facility] 02-28-2022 influenza, injectabl e, quadrivalent, preservative free Christopher Michelle DO Work Phone: [facility] 02-08-2021 Influenza, injectabl e, Madin Melissa Canine Kidney, preservative free, quadrivalent Christopher Michelle DO Work Phone: [facility] 05-27-2020 pneumococcal conjuga te vaccine, 13 valent Christopher Michelle DO Work Phone: [facility] 01-29-2020 influenza, injectabl e, quadrivalent, preservative free Christopher Michelle DO Work Phone: [facility] 04-25-2019 zoster vaccine recombinant Christopher Michelle DO Work Phone: [facility] 02-14-2019 zoster vaccine recombinant Christopher Michelle DO Work Phone: [facility] 02-11-2019 influenza, high dose seasonal, preservative-free Christopher Michelle DO Work Phone: [facility] 09-25-2018 pneumococcal conjuga te vaccine, 13 valent Christopher Michelle DO Work Phone: [facility] 02-03-2018 influenza, high dose seasonal, preservative-free Christopher Michelle DO Work Phone: [facility] 01-12-2015 seasonal influenza, intradermal, preservative free Christopher Michelle DO Work Phone: [facility] 04-14-2014 zoster vaccine, live Leobardo miriam Martinez DO Work Phone: [facility] 04-07-2014 pneumococcal polysaccharide vaccine, 23 valent Christopher Michelle DO Work Phone: [facility] 02-19-2014 seasonal influenza, intradermal, preservative free Christopher Michelle DO Work Phone: [facility] Payers Date Payer Category Payer Medicare [employer] MEDICARE ADVANTAGE [employer] MEDICARE [id number] 2017-Present [address] [address] [place] [address] [id number] 2017 Medicare (Managed Care) [employer] EDICARE ADVANTAGE [id number] 1959 Medicare [id number] 1959 Self-pay 1945 Unknown [id number] .[id number] 1947 Unknown [id number] [id number] .2.593 1947 Unknown [id number] [id number] .2.1258 1947 Unknown [id number] [id number] .2.1258 1947 Unknown [id number] [id number] .2.1258 1947 Unknown [id number] [id number] .2.1258 1947 Unknown [id number] [id number] .2.1258 1947 Unknown [id number] [id number] .2.1258 1947 Unknown [id number] 2.840.1.198926.3.579 .2.1258 1947 Unknown [id number] [id number] .2.1258 1947 Unknown [id number] [id number] .2.1258 1947 Unknown [id number] [id number] .2.1258 1947 Unknown [id number] [id number] .2.1259 Unknown [id number] [id number] .2.593 Unknown [id number] [id number] .2.593 Social History Date Type Detail Facility Start: 10-25-2022 End: 01-16-2024 Tobacco smoking status COIS Ex-smoker [facility] End: 04-30-1991 History of tobacco use Current smoker [facility] End: 04-30-1991 History of tobacco use Cigarette Smoker [facility] History of tobacco use Pipe Smoker [facility] History of tobacco use Cigar Smoker [facility] Start: 10-25-2022 End: 01-16-2024 Tobacco use and exposure Smokeless tobacco non-user [facility] Start: 01-16-2024 End: 09-09-2024 Alcoholic beverage intake Current drinker of alcohol (finding) [facility] Start: 01-16-2024 End: 09-09-2024 History of Social function [facility] Start: 01-16-2024 End: 09-09-2024 Tobacco use panel [facility] Start: 11-05-2022 Alcohol Comment Coffee 2-3 cup s per day [facility] Start: 1945 Sex assigned at Not on file [facility] Tobacco smoking stat [facility] Unknown if ever smoked [facility] Work Phone: Sex Male (finding) [facility] Start: 1945 Sex Assigned At Male F [facility] Functional Status Date Assessment Result Facility 09-09-2024 Patient Health Quest ionnaire 2 item (PHQ-2) [Reported] [facility] Clinical Notes 12-11-2023 to 10-15-2024 ROBY Gandara - 09/09/2024 10:00 AM EDTTelephone Encounter - Alem Gustafson - 08/13/2024 9:48 AM EDTTelephone Encounter - Alem Sj - 08/13/2024 9:48 AM EDTPatient Instructions Note Date & Type Note Facility 10-15-2024 Note Patient is here toda y for a 6 month follow up. Patient complains of SNYDER, leg swelling, weakness bilateral legs. Patient seen Dr. Branham for these issues to his weight and some of the medications he is on. Review of Systems Cardiovascular: Positive for dyspnea on exertion and leg swelling. Musculoskeletal: Positive for muscle weakness (legs). [facility] 10-15-2024 Note Cardiovascular Medic [facility] SUBJECTIVE Chief Complaint Patient presents with Atrial Fibrillation Hypertension Harjeet Noriega is a 79 y.o. male here for follow-up. His accompanied him today. HPI PMHx: a.fib s/p ablation 11/2023, HTN, DM 10/15/2024 Since last seen, his amlodipine was reduced to 5mg and bystolic was increased to 10mg daily due to leg swelling. BP at other provider has been running 120-130s/70-80s. He has continued leg swelling. SNYDER is stable, unchanged. Denies c/o CP, palpitations, orthopnea. 02/06/2024 After he was last seen, he was [...] (chronic) (peripheral) Spinal stenosis of lumbar region Bilateral lower extremity edema Impaired fasting glucose Past Medical History: Diagnosis Date Abnormal ECG Arrhythmia Arthritis Atrial fibrillation (CMS/HCC) Diabetes mellitus (CMS/HCC) Fibromyalgia GERD (gastroesophageal reflux disease) History of colon polyps Hypertension Joint pain BACK PAIN Lipoprotein deficiency Lumbar stenosis SI (sacroiliac) joint dysfunction Family History Problem Relation Name Age of Onset Other (ckd) Mother Heart failure Mother Social History Tobacco Use Smoking status: Former Current packs/day: 0.00 Types: Cigarettes Quit date: 1991 Years since quittin.4 Passive exposure: Past Smokeless tobacco: Former Substance Use Topics Alcohol use: Not Currently Drug use: Never No Known Allergies ROS Cardiovascular: Positive for dyspnea on exertion and leg swelling. All other systems reviewed and are negative. OBJECTIVE Visit Vitals BP 143/69 (BP Location: Right arm, Patient Position: Sitting) Pulse 64 Ht 1.803 m (5' 11 ) Wt 128 kg (283 lb) SpO2 95% BMI 39.47 kg/m??? Smoking Status Former BSA 2.53 m??? Medications: Current Outpatient Medications: amLODIPine (Norvasc) 5 mg tablet, Take 1 tablet (5 mg) by mouth in the morning. WITH A 2.5 MG TABLET DAILY FOR A TOTAL OF 7.5 MG DAILY, Disp: 90 tablet, Rfl: 3 Eliquis 5 mg tablet, TAKE 1 TABLET (5 MG) BY MOUTH IN THE MORNING AND BEFORE BEDTIME, Disp: , Rfl: famotidine (Pepcid) 20 mg tablet, Take 1 tablet (20 mg) by mouth two times daily., Disp: 60 tablet, Rfl: 0 ferrous sulfate 325 (65 Fe) MG EC tablet, Take 65 mg of iron by mouth with breakfast, with lunch, and with evening meal. Do not crush, chew, or split., Disp: , Rfl: furosemide (Lasix) 20 mg tablet, Take 20 mg by mouth if needed each day., Disp: , Rfl: HYDROcodone-acetaminophen ([place]) 5-325 mg tablet, Take 1 tablet by mouth every 4 (four) hours if needed., Disp: , Rfl: nebivolol (Bystolic) 10 mg tablet, Take 1 tablet (10 mg) by mouth in the morning., Disp: 90 tablet, Rfl: 3 potassium chloride CR (Klor-Con M10) 10 mEq ER tablet, Take 10 mEq by mouth in the morning. Do not crush or chew., Disp: , Rfl: RABEprazole (Aciphex) 20 mg EC tablet, TAKE 1 TABLET BY MOUTH EVERY DAY FOR 100 DAYS, Disp: , Rfl: valsartan-hydrochlorothiazide (Diovan-HCT) 320-25 mg tablet, Take 1 tablet by mouth in the morning., Disp: , Rfl: Physical Exam Constitutional: Appearance: Normal appearance. He [...] Neck supple. Right lower leg: Edema present. (more content not included)... [facility] 09-09-2024 History of Present illness Narrative Images from the original note were not included. Subjective Patient ID: Harjeet Noriega is a 79 y.o. male who presents for edema. Harjeet is present today for evaluation of edema. Admits it is in bilateral lower extremity (right leg worse than left leg). This is an ongoing issue for him. He does have 2+ pitting edema in bilateral legs. states has seen Dr. Branham for this and was told it is from the varicose veins but they are wanting to discuss a medication for it. Denies tenderness, redness, warmth. He has been taking an OTC Swell No More daily and it does help a little. He was given a script for Lasix for 5 days and it did seem to help. States that his lower legs are uncomfortable. Patient states that he has trouble getting his compression stockings on so doesn't wear them often. Current Outpatient Medications on File Prior to Visit Medication Sig Dispense Refill amLODIPine (Norvasc) 5 MG tablet TAKE 1 TABLET BY MOUTH EVERY DAY 100 DAYS 90 tablet 5 apixaban (Eliquis) 5 MG tablet Take 1 tablet (5 mg) by mouth in the morning and 1 tablet (5 mg) before bedtime. 60 tablet 11 nebivolol (Bystolic) 10 MG tablet Take 10 mg by mouth in the morning. omeprazole (PriLOSEC) [address] capsule Take 40 mg by mouth in the morning. Take before meals. (Patient not taking: Reported on 09/09/2024) RABEprazole (Aciphex) 20 MG EC tablet TAKE 1 TABLET BY MOUTH EVERY DAY FOR 100 DAYS 90 tablet 5 valsartan-hydroCHLOROthiazide (Diovan-HCT) 320-25 MG tablet Take 1 tablet by mouth Daily 90 tablet 5 [DISCONTINUED] amiodarone (Pacerone) 200 MG tablet TAKE 2 TABLETS BY MOUTH IN THE MORNING AND AT BEDTIME FOR 14 DAYS, THEN 1 TABLET IN THE MORNING (Patient not taking: Reported on 09/09/2024) [DISCONTINUED] amLODIPine (Norvasc) 2.5 MG tablet Take 2.5 mg by mouth Daily [DISCONTINUED] fluticasone (Flonase) 50 MCG/ACT nasal spray ADMINISTER 1-2 SPRAYS INTO EACH NOSTRIL DAILY SHAKE GENTLY. BEFORE FIRST USE, PRIME PUMP. AFTER USE, CLEAN TIP AND REPLACE CAP (Patient not taking: Reported on 07/22/2024) 48 mL 3 [DISCONTINUED] furosemide (Lasix) 20 MG tablet Take 1 tablet (20 mg) by mouth Daily for 5 days (Patient not taking: Reported on 09/09/2024) 5 tablet 0 No current facility-administered medications on file prior to visit. I have reviewed and reconciled the history and medication list with the patient today. No Known Allergies Social History Tobacco Use Smoking status: Former Current packs/day: 0.00 Types: Cigarettes, Cigars, Pipe Quit date: 1991 Years since quittin.3 Smokeless tobacco: Never Vaping Use Vaping status: Never Used Substance Use Topics Alcohol use: Yes Comment: Coffee 2-3 cups per day Drug use: Never Family History Problem Relation Name Age of Onset Hypertension Mother Brain cancer Father Hypertension Other Past Medical History: Diagnosis Date Arthritis Atrial fibrillation (CMS/HCC) Back pain Diabetes mellitus (CMS/HCC) Enthesopathy of [...] L4-L5 Facet Injections 04/13/2021, 12/19/2021, 06/27/2022 TONSILLECTOMY Visit Vitals BP 122/76 Pulse 56 Resp 16 Ht 5' 11 Wt 284 lb 3.2 oz SpO2 95% BMI 39.64 kg/m Smoking Status Former BSA 2.54 m Review of Systems Constitutional: Negative for chills, fatigue and fever. Respiratory: Negative for cough, shortness of breath and wheezing. Cardiovascular: Positive for leg swelling. Negative for chest pain and palpitations. Gastrointestinal: Negative for abdominal pain, constipation, diarrhea, nausea and vomiting. Skin: Negative for rash. Objective Physical Exam Constitutional: General: He is not in acute distress. Appearance: Normal appearance. HENT: Head: Normocephalic and atraumatic. Eyes: General: No scleral icterus. Cardiovascular: Rate and Rhythm: Normal rate and regular rhythm. Heart sounds: No murmur heard. Pulmonary: Effort: Pulmonary effort is normal. No respiratory distress. Breath sounds: Normal breath sounds. No wheezing, rhonchi or rales. Musculoskeletal: Right lower le+ Edema present. Left lower le+ Edema present. Skin: General: Skin is warm and dry. Neurological: General: No focal deficit present. Mental Status: He is alert and oriented to person, place, and time. Psychiatric: Mood and Affect: Mood normal. Behavior: Behavior normal. Assessment/Plan Diagnoses and all orders for this visit: Benign essential hypertension (CMS/HCC) Continue Amlodipine at 5 mg dosage. Continue Valsartan-Hydrochlorothiazide daily. Follow up with Cardiology as scheduled. Bilateral lower extremity edema - furosemide (Lasix) 20 MG tablet; Take 1 tablet (20 mg) by mouth Daily as needed (Swelling) - potassium chloride CR (Klor-Con M10) 10 MEQ ER tablet; Take 1 tablet (10 mEq) by mouth Daily Do not crush or chew. Take when he takes the Furosemide Sees Cardiology 10/15. Encouraged him to keep this appointment as scheduled. Cardiology decreased his Amlodipine to 7.5 mg in the past from 10 mg with some improvement in his swelling. His BP is normal today. Decrease Amlodipine to 5 mg daily, until instructed otherwise by Cardiology. Reminded pt he is on a diuretic, Hydrochlorothiazide as part of one of his other BP medications. Advised of risks of daily use of Furosemide, including hypokalemia. He can take the Furosemide on an as needed basis, if he takes a dosage he will also need to take a potassium pill. Encouraged him to avoid daily use when possible. If the Swell No More supplement is sufficient with the compression stockings then he can withhold the Furosemide. Discussed with pt and his , devices to aid in putting on compression stockings. Encouraged daily use, on in am and off in pm. Advised if he consistently uses his compression stockings, it should improve the edema. Follow up in about 3 months (around 12/10/2024) for Leg Swelling. documented in this encounter [facility] 08-13-2024 Telephone encounter Note Patient has swelling in his legs. States he's seen DB about this before but wondered [facility] [place] [facility]. [facility] 08-13-2024 Miscellaneous Notes Patient has swelling in his legs. States he's seen DB about this before but wondered if [facility] [place] [facility]. documented in this encounter [facility] 07-30-2024 History of Present illness Narrative Images from the original note were not included. Subjective : Chief Complaint: Harjeet Noriega is an 78 y.o. male here for an annual wellness visit. I have reviewed and reconciled the history and medication list with the patient today. Current Outpatient Medications Medication Sig Dispense Refill fluticasone (Flonase) 50 MCG/ACT nasal spray ADMINISTER 1-2 SPRAYS INTO EACH NOSTRIL DAILY SHAKE GENTLY. BEFORE FIRST USE, PRIME PUMP. AFTER USE, CLEAN TIP AND REPLACE CAP (Patient not taking: Reported on 07/22/2024) 48 mL 3 amiodarone (Pacerone) 200 MG tablet TAKE 2 TABLETS BY MOUTH IN THE MORNING AND AT BEDTIME FOR 14 DAYS, THEN 1 TABLET IN THE MORNING amLODIPine (Norvasc) 2.5 MG tablet Take 2.5 mg by mouth Daily amLODIPine (Norvasc) 5 MG tablet TAKE 1 TABLET BY MOUTH EVERY DAY 100 DAYS 90 tablet 5 apixaban (Eliquis) 5 MG tablet Take 1 tablet (5 mg) by mouth in the morning and 1 tablet (5 mg) before bedtime. 60 tablet 11 Blood Pressure kit 1 Device Daily 1 kit 0 nebivolol (Bystolic) 10 MG tablet Take 10 mg by mouth in the morning. omeprazole (PriLOSEC) [address] capsule Take 40 mg by mouth in the morning. Take before meals. RABEprazole (Aciphex) 20 MG EC tablet TAKE 1 TABLET BY MOUTH EVERY DAY FOR 100 DAYS 90 tablet 5 valsartan-hydroCHLOROthiazide (Diovan-HCT) 320-25 MG tablet Take 1 tablet by mouth Daily 90 tablet 5 No current facility-administered medications for this visit. Review of Systems Constitutional: Negative. HENT: Negative. Eyes: Negative. Respiratory: Negative. Cardiovascular: Negative. Gastrointestinal: Negative. Genitourinary: Negative. Musculoskeletal: Negative. Skin: Negative. Neurological: Negative. Psychiatric/Behavioral: Negative. All other systems reviewed and are negative. Endocrine: Negative. List of current healthcare providers: Patient Care Team: Armando Branham MD as PCP - General (Internal Medicine) Armando Branham MD as PCP - Everton Talavera [employer]OT[employer] MANAGER as Nurse Practitioner (Neurology) Nanette Martinez DO as Referring Physician (Neurology) Medicare Annual Visit Over the past 2 weeks, how often have you been bothered by any of the following problems? Little interest or pleasure in doing things: Not at all Feeling down, depressed, or hopeless: Not at all Patient Health Questionnaire-2 Score: 0 Pinedo Fall Risk History of Falling, Immediate or Within 3 Months: No Health Risk Assessment Form Do you need help eating, bathing, using the toilet, dressing, or getting around your home?: No Can you prepare your own meals?: Yes Can you do your own housework without help?: Yes Can you shop for groceries or clothes without help?: Yes Do you exercise for about 20 minutes 3 or more days a week?: Yes How confident are you that you can control and manage most of your health problems?: Very confident Can you mange your money, credit cards and accounts, pay bills and taxes?: Yes Cognitive Screening Three Word Registration: Roney Miller, Chair Clock Drawing: Normal Clock - 2 Three Word Recall: All 3 words correct - 3 Total Score (0-5 Points): 5 Advance Care Planning Do you have a living will?: No Do you have a medical power of atm servicer?: No Objective : BP 136/78 Pulse (!) 48 Resp 16 Ht 5' 11 Wt 282 lb 9.6 oz SpO2 96% BMI 39.41 kg/m No results found. Physical Exam Vitals reviewed. Constitutional: Appearance: Normal appearance. HENT: Head: Normocephalic. Nose: Nose normal. Mouth/Throat: Mouth: Mucous membranes are moist. Pharynx: Oropharynx is clear. Eyes: Conjunctiva/sclera: Conjunctivae normal. Cardiovascular: Rate and Rhythm: Normal rate and regular rhythm. Pulmonary: Effort: Pulmonary effort is normal. Breath sounds: Normal breath sounds. Abdominal: General: Bowel sounds are normal. Palpations: Abdomen is soft. Comments: obese Musculoskeletal: General: Normal range of motion. Cervical back: Neck supple. Skin: General: Skin is warm and dry. Neurological: General: No focal deficit present. Mental Status: He is alert and oriented to person, place, and time. Psychiatric: Mood and Affect: Mood normal. Behavior: Behavior normal. Thought Content: Thought content normal. Assessment/Plan : The following health maintenance schedule was reviewed with the patient and provided in printed form in the after visit summary: Health Maintenance Topic Date Due Diabetes: Retinopathy Screening Never done Medicare Annual Wellness (AWV) 07/31/2024 Diabetes: Urine Protein Screening 08/07/2024 Diabetes: Hemoglobin A1C 08/19/2024 Influenza Vaccine Completed Pneumococcal Vaccine: 65+ Years Completed Colorectal Cancer Screening Discontinued Advance Care Planning Discussed with pt 1. Medicare annual wellness visit, subsequent (Primary) Reviewed all relevant preventative screenings with the patient in detail. Medicare Wellness form completed and will be scanned into patient's chart. All needed testing was ordered. Will continue with yearly Medicare Wellness exams. 2. Lumbar radiculopathy This is a chronic medical condition that is stable since last assessment. No changes in treatment are suggested at this time. 3. Lumbosacral radiculopathy This is a chronic medical condition that is stable since last assessment. No changes in treatment are suggested at this time. 4. Polyneuropathy This is a chronic medical condition that is stable since last assessment. No changes in treatment are suggested at this time. 5. Radiculopathy, lumbosacral region This is a chronic medical condition that is stable since last assessment. No changes in treatment are suggested at this time. 6. Spinal stenosis of lumbar region without neurogenic claudication This is a chronic medical condition that is stable since last assessment. No changes in treatment are suggested at this time. 7. Benign essential hypertension (CMS/HCC) Patient's blood pressure is currently well controlled. Continue with current medications and I will continue to monitor. Goal BP remains less than 130/80. - CBC; Future - Comprehensive metabolic panel; Future - CBC - Comprehensive metabolic panel 8. Paroxysmal atrial fibrillation (CMS/HCC) Pt is followed and managed by cardiology 9. Venous insufficiency (chronic) (peripheral) Pt is followed and managed by cardiology 10. Diverticulosis of colon This is a chronic medical condition that is stable since last assessment. No changes in treatment are suggested at this time. 11. Gastroesophageal reflux disease with esophagitis without hemorrhage GERD discussed with the patient. Pt educated regarding avoiding high acid food triggers such as caffeine products, fruits high in acid, spicy foods, and tomato based products. Advsied to avoid all NSAIDS medications, i.e. Motrin, Aleve. Ok to use Tylenol prn. Encouraged pt to avoid laying down immediately after meals. 12. Arthritis of right foot This is a chronic medical condition that is stable since last assessment. No changes in treatment are suggested at this time. 13. Fibromyalgia This is a chronic medical condition that is stable since last assessment. No changes in treatment are suggested at this time. 14. Muscle spasm This is a chronic medical condition that is stable since last assessment. No changes in treatment are suggested at this time. 15. Myalgia This is a chronic medical condition that is stable since last assessment. No changes in treatment are suggested at this time. 16. Nocturnal leg cramps This is a chronic medical condition that is stable since last assessment. No changes in treatment are suggested at this time. 17. Primary generalized (osteo)arthritis This is a chronic medical condition that is stable since last assessment. No changes in treatment are suggested at this time. 18. SI (sacroiliac) joint dysfunction This is a chronic medical condition that is stable since last assessment. No changes in treatment are suggested at this time. 19. Spondylosis of lumbar region without myelopathy or radiculopathy This is a chronic medical condition that is stable since last assessment. No changes in treatment are suggested at this time. 20. Impaired fasting glucose This is a chronic medical condition that is stable since last assessment. No changes in treatment are suggested at this time. - CBC; Future - Comprehensive metabolic panel; Future - CBC - Comprehensive metabolic panel 21. Depressive disorder (CMS/HCC) Medication as directed. Counseling recommended. Verbalizes understanding of the need to be seen in the ER for suicidal/homicidal ideation, excessive stress, elevated blood pressure or palpitations. Pt offers understanding of treatment plan. I discussed the side effects of the medications described and to seek medical care if they arise. Discussed stress mgmt strategies, social support and importance of healthy diet, exercise and regular sleep habits. Advised on relaxation methods to decrease anxiety and depression. 22. Pure hypercholesterolemia (CMS/HCC) This is a chronic medical condition that is stable since last assessment. No changes in treatment are suggested at this time. - Lipid panel; Future - Lipid panel 23. Morbid (severe) obesity due to excess calories (CMS/HCC) Discussed goal of BMI < 30. Advised on weight loss options. Encouraged diet and exercise. Discussed with patient appropriate lifestyle modification changes necessary for weight management, heart healthy eating and overall health promotion. Discussed minimizing high carb, high sugar, high sodium, portion control, and processed foods while making healthy choice replacements. Additionally discussed recommendations of 30 minutes of aerobic exercise at least 5 days per week, that includes, walking, and chair exercises. . Instructed importance of drinking adequate water consumption (if not on fluid restriction) with minimal sugar and caffiene. 24. Body mass index (BMI) 39.0-39.9, adult Discussed goal of BMI < 30. Advised on weight loss options. Encouraged diet and exercise. Discussed with patient appropriate lifestyle modification changes necessary for weight management, heart healthy eating and overall health promotion. Discussed minimizing high carb, high sugar, high sodium, portion control, and processed foods while making healthy choice replacements. Additionally discussed recommendations of 30 minutes of aerobic exercise at least 5 days per week, that includes, walking, and chair exercises. . Instructed importance of drinking adequate water consumption (if not on fluid restriction) with minimal sugar and caffiene. 25. Pulmonary hypertension, unspecified (CMS/HCC) Patient's blood pressure is currently well controlled. Continue with current medications and I will continue to monitor. Goal BP remains less than 130/80. 26. Routine general medical examination at health care facility Reviewed all relevant preventative screenings with the patient in detail. Medicare Wellness form completed and will be scanned into patient's chart. All needed testing was ordered. Will continue with yearly Medicare Wellness exams. 27. Type 2 diabetes mellitus with other specified complication, without long-term current use of insulin Discussed today the importance of proper diabetic control. Discussed possible complications of diabetes, including loss of vision, renal failure, increased risk of heart attacks and strokes, blood vessel and/or nerve damage. Reviewed the recommended changes to reduce your blood sugars and minimize the risk of these complications. Reviewed diabetic goals, including keeping A1C <7.0% and blood pressure < 130/70. The plan for achieving these goals is adherence to medications, maintaining a healthy and balanced diet, and regular activity as discussed during today's visit. Discussed current barriers to achieving these goals. Discussed dietary goals. Discussed decreasing carbohydrates and simple sugar intake. Reviewed portion control with the patient. If the patient still has questions on this, a referral to a Dietitian can be arranged. Reviewed medications that aid in diabetic control. Discussed proper dosing and educated the patient on possible side effects and complications. The patient verbalized understanding of these instructions. - Microalbumin / creatinine, urine ratio; Future - Microalbumin / creatinine, urine ratio - POCT glycosylated hemoglobin (Hb A1C) docked device 28. Screening for prostate cancer Await lab - PSA; Future - PSA No orders of the defined types were placed in this encounter. Electronically signed by Ángela Rausch NP on July 30, 2024 documented in this encounter [facility] 07-29-2024 History of Present illness Narrative Associated Order(s): Nerve Block Pre-Procedure Diagnose(s): Lumbar facet arthropathy Post-Procedure Diagnose(s): Lumbar facet arthropathy Images from the original note were not included. Reason for Appointment: Facet Injection Patient ID: Harjeet Noriega is a 78 y.o. male who presents for lumbar facet arthropathy. Current Medications: has a current medication list which includes the following prescription(s): fluticasone, amiodarone, amlodipine, amlodipine, apixaban, blood pressure, nebivolol, omeprazole, rabeprazole, and valsartan-hydrochlorothiazide, and the following Facility-Administered Medications: bupivacaine and dexamethasone sod phos. Vitals: Visit Vitals BP (!) 156/92 Pulse 56 SpO2 98% Smoking Status Former Allergies: No Known Allergies FACET INJECTION NOTE: Bilateral L4/5 Facet Injection Fluoroscopic needle guidance REASON FOR PROCEDURE: Lumbar facet arthropathy and nocioceptive pain MEDICATIONS INJECTED: 0.5ml of 0.25% Bupivacaine mixed with Dexamethasone (10mg/ml) 0.5ml per each procedure site LOCAL ANESTHETIC INJECTED: None SEDATION MEDICATIONS: None TOPICAL ANESTHETIC: Ethyl Chloride spray ESTIMATED BLOOD LOSS: None COMPLICATIONS: None TECHNIQUE: If applicable, blood thinning medication we held according toSIS and COURT guidelines. Time-out was taken to identify the correct patient, procedure, and side prior to starting the procedure. Lying in a prone position, the patient was prepped in the usual aseptic fashion. Each site was identified under fluoroscopy. Then a 25-gauge 4.69 inch needle was advanced to the anatomic location of each facet as identified above utilizing intermittent fluoroscopy. Then 0.5mL of .25% Bupivacaine mixed with Dexamethasone (10mg/ml) 0.5ml was injected into each joint specified above without adverse effect. The procedure was completed without complications and was tolerated well. The patient was monitored after the procedures. The patient (or the responsible libertarian) was given post-procedure and discharge instructions to follow at home. The patient was discharged in stable condition. A follow-up appointment was made. The patient has been instructed to call us in 2-3 hours to inform us what percentage of pain relief was obtained after the facet nerve block(s) from today. The patient was also instructed to do activities that would normally worsen the pain. Pre-procedure pain score: 6 /10 Financial Systems Director: RT Kathryn(Maximino) kVp: 103 Time (sec): 18 mA: 3.0 Patient ID: Harjeet Noriega is a 78 y.o. male. Nerve Block Date/Time: 07/29/2024 9:10 AM Performed by: Nanette Martinez DO Authorized by: Jenn Talavera NP Consent: Consent obtained: Written Consent given by: Patient Cougar protocol: Procedure explained and questions answered to patient or proxy's satisfaction: yes Patient identity confirmed: Verbally with patient Location: Body area: Trunk Trunk nerve: Lumbar Procedure details: Guidance: fluoroscopy Steroid injected: Dexamethasone Post-procedure details: Procedure completion: Tolerated documented in this encounter [facility] 06-09-2024 Telephone encounter Note OARRS reviewed. Due now. Prescription sent. [facility] 06-09-2024 Miscellaneous Notes OARRS reviewed. Due now. Prescription sent. Patients calls in for refill of norco. OARRS reviewed last filled 03/06/24. Medication is pending. documented in this encounter [facility] 06-09-2024 Telephone encounter Note Patients calls in for refill of norco. OARRS reviewed last filled 03/06/24. Medication is pending. [facility] 05-21-2024 History of Present illness Narrative Images from the original note were not included. Subjective Patient ID: Harjeet Noriega is a 78 y.o. male who presents for earache. aHrjeet is present today for evaluation of ear discomfort. Admits right ear discomfort, about 3-4 weeks ago put ear plugs in his ears at work and when he took them out it felt like his right ear was plugged and has continue to have that symptom ever since then. Denies congestion, cough. He has tried OTC ear drops and has tried getting water in his ear when he showers. He has tried Benadryl and Zyrtec when he did have sinus symptoms but all that cleared up but the right ear. There is no cerumen build up in the ear. He feels his ear pop at times. Current Outpatient Medications on File Prior to Visit Medication Sig Dispense Refill amiodarone (Pacerone) 200 MG tablet TAKE 2 TABLETS BY MOUTH IN THE MORNING AND AT BEDTIME FOR 14 DAYS, THEN 1 TABLET IN THE MORNING amLODIPine (Norvasc) 2.5 MG tablet Take 2.5 mg by mouth Daily amLODIPine (Norvasc) 5 MG tablet TAKE 1 TABLET BY MOUTH EVERY DAY 100 DAYS 90 tablet 5 apixaban (Eliquis) 5 MG tablet Take 1 tablet (5 mg) by mouth in the morning and 1 tablet (5 mg) before bedtime. 60 tablet 11 Blood Pressure kit 1 Device Daily 1 kit 0 nebivolol (Bystolic) 10 MG tablet Take 10 mg by mouth in the morning. omeprazole (PriLOSEC) [address] capsule Take 40 mg by mouth in the morning. Take before meals. RABEprazole (Aciphex) 20 MG EC tablet TAKE 1 TABLET BY MOUTH EVERY DAY FOR 100 DAYS 90 tablet 5 valsartan-hydroCHLOROthiazide (Diovan-HCT) 320-25 MG tablet Take 1 tablet by mouth Daily 90 tablet 5 [DISCONTINUED] metoprolol succinate XL (Toprol-XL) 25 MG 24 hr tablet Take 1 tablet (25 mg) by mouth Daily Do not crush or chew. (Patient not taking: Reported on 03/06/2024) 90 tablet 3 [DISCONTINUED] TIZANIDINE HCL PO Take 4 mg by mouth at bedtime (Patient not taking: Reported on 03/06/2024) No current facility-administered medications on file prior to visit. I have reviewed and reconciled the history and medication list with the patient today. No Known Allergies Social History Tobacco Use Smoking status: Former Current packs/day: 0.00 Types: Cigarettes, Cigars, Pipe Quit date: 1991 Years since quittin.0 Smokeless tobacco: Never Vaping Use Vaping status: Never Used Substance Use Topics Alcohol use: Yes Comment: Coffee 2-3 cups per day Drug use: Never Family History Problem Relation Name Age of Onset Hypertension Mother Brain cancer Father Hypertension Other Past Medical History: Diagnosis Date Arthritis Atrial fibrillation (CMS/HCC) Back pain Diabetes mellitus (CMS/HCC) Enthesopathy of [...] L4-L5 Facet Injections 04/13/2021, 12/19/2021, 06/27/2022 TONSILLECTOMY Visit Vitals BP 112/76 Pulse 53 Resp 16 Ht 5' 11 Wt 285 lb 12.8 oz SpO2 95% BMI 39.86 kg/m Smoking Status Former BSA 2.55 m Review of Systems Constitutional: Negative for chills, fatigue and fever. HENT: Positive for ear pain. Respiratory: Negative for cough, shortness of breath and wheezing. Cardiovascular: Negative for chest pain, palpitations and leg swelling. Gastrointestinal: Negative for abdominal pain, constipation, diarrhea, nausea and vomiting. Skin: Negative for rash. Objective Physical Exam Constitutional: General: He is not in acute distress. Appearance: He is obese. HENT: Head: Normocephalic and atraumatic. Right Ear: Ear canal normal. A middle ear effusion is present. Tympanic membrane is erythematous. Left Ear: Tympanic membrane and ear canal normal. Eyes: General: No scleral icterus. Cardiovascular: Rate and Rhythm: Normal rate and regular rhythm. Heart sounds: No murmur heard. Pulmonary: Effort: Pulmonary effort is normal. No respiratory distress. Breath sounds: Normal breath sounds. No wheezing, rhonchi or rales. Musculoskeletal: General: No swelling. Lymphadenopathy: Cervical: No cervical adenopathy. Skin: General: Skin is warm and dry. Neurological: General: No focal deficit present. Mental Status: He is alert and oriented to person, place, and time. Psychiatric: Mood and Affect: Mood normal. Behavior: Behavior normal. Office Visit on 05/21/2024 Component Date Value Ref Range Status Hemoglobin A1C 05/21/2024 5.9 Final Assessment/Plan Diagnoses and all orders for this visit: Impaired fasting glucose - POCT Glycated hemoglobin, total Improved from previous of 6.3 and is 5.9 today. Advised pt he is not Diabetic. His fasting glucose is often elevated, but only once on his record upon review today that it has ever been > 126. His HgbA1c's remain < 6.5. Would plan to monitor every 6-12 months. Aim for healthy diet. Limit simple sugars and carbs. Right acute otitis media - fluticasone (Flonase) 50 MCG/ACT nasal spray; Administer 1-2 sprays into each nostril Daily Shake gently. Before first use, prime pump. After use, clean tip and replace cap. - amoxicillin (Amoxil) 875 MG tablet; Take 1 tablet (875 mg) by mouth in the morning and 1 tablet (875 mg) before bedtime. Do all this for 10 days. Start the above as directed. Reviewed potential s/e with patient and his . Encouraged probiotic while on antibiotic. Increase water intake, get plenty of rest. Flonase as prescribed to help with ETD. Follow up if no improvement in one week. Follow up in about 3 months (around 08/19/2024) for Medicare Wellness Visit. documented in this encounter [facility] 04-09-2024 History of Present illness Narrative Images from the original note were not included. Reason for Appointment: Facet Injection Patient ID: Harjeet Noriega is a 78 y.o. male who presents for lumbar facet arthropathy. Current Medications: has a current medication list which includes the following prescription(s): amiodarone, amlodipine, amlodipine, apixaban, blood pressure, metoprolol succinate xl, nebivolol, omeprazole, rabeprazole, tizanidine hcl, and valsartan-hydrochlorothiazide. Vitals: Visit Vitals BP 162/88 Pulse 55 SpO2 96% Smoking Status Former Allergies: No Known Allergies FACET INJECTION NOTE: Bilateral L4/5 Facet Injection Fluoroscopic needle guidance REASON FOR PROCEDURE: Lumbar facet arthropathy and nocioceptive pain MEDICATIONS INJECTED: 0.5ml of 0.25% Bupivacaine mixed with Dexamethasone (10mg/ml) 0.5ml per each procedure site LOCAL ANESTHETIC INJECTED: None SEDATION MEDICATIONS: None TOPICAL ANESTHETIC: Ethyl Chloride spray ESTIMATED BLOOD LOSS: None COMPLICATIONS: None TECHNIQUE: If applicable, blood thinning medication we held according toSIS and COURT guidelines. Time-out was taken to identify the correct patient, procedure, and side prior to starting the procedure. Lying in a prone position, the patient was prepped in the usual aseptic fashion. Each site was identified under fluoroscopy. Then a 25-gauge 4.69 inch needle was advanced to the anatomic location of each facet as identified above utilizing intermittent fluoroscopy. Then 0.5mL of .25% Bupivacaine mixed with Dexamethasone (10mg/ml) 0.5ml was injected into each joint specified above without adverse effect. The procedure was completed without complications and was tolerated well. The patient was monitored after the procedures. The patient (or the responsible libertarian) was given post-procedure and discharge instructions to follow at home. The patient was discharged in stable condition. A follow-up appointment was made. The patient has been instructed to call us in 2-3 hours to inform us what percentage of pain relief was obtained after the facet nerve block(s) from today. The patient was also instructed to do activities that would normally worsen the pain. Pre-procedure pain score: 6 /10 Financial Systems Director: RT Kathryn(R) kVp: 103 Time (sec): 23 mA: 3.0 documented in this encounter [facility] 04-08-2024 Note [place] Electrophysiology Consult Note [place] Cardiology [facility] Reason for visit: atrial fibrillation 04/08/24 Patient here for 4 mo follow up afib ablation. Amlodipine was reduced to 7.5mg to help with swelling, and Bystolic was increased to 10mg daily. Patient says this has helped LE edema. He denies chest pain, SOB, palpitations, lightheadedness/syncope, and bleeding on Eliquis. EKG 04/08/24: SR 12/11/23 Pt here for discussion about ablation. [...] Determinants of Health Tobacco Use: Medium Risk (03/06/2024) Received from [facility] Patient History Smoking Tobacco Use: Former Smokeless Tobacco Use: Never Passive Exposure: Not on file Alcohol Use: Not on file Financial Resource Strain: Not on file Food Insecurity: Not on file Transportation Needs: Not on file Physical Activity: Not on file Stress: Not on file Social Connections: Not on file Intimate Partner Violence: Unknown (08/13/2023) [place] Safety & Environment Fear of Current or Ex-Partner: Not on file Emotionally Abused: Not on file Physically Abused: Not on file Sexually Abused: Not on file Physically or Sexually Abused: Not on file Depression: Not at risk (08/01/2023) Received from [facility], [facility] PHQ-2 Patient Health Questionnaire-2 Score: 0 Housing Stability: Not on file Utilities: Not on file Health Literacy: Not on file Allergies: No Known Allergies Weight: 127kg Visit Vitals BP 118/68 (BP Location: Left arm, Patient Position: Sitting) Pulse 54 Ht 1.803 m (5' 11 ) Wt 127 kg (281 lb) SpO2 97% BMI 39.19 kg/m??? Smoking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
--- NOTE | 2024-11-26 07:01 | CA_ITS ---
Patient Name: TOMÁS COLBY MR#: [id number] : 1945 Exam Date: 11/26/2024 Ordering Doctor: JEANNETTE HWANG CNP ECHOCARDIOGRAM REPORT PROCEDURE: CA ECHO DOPPLER COMPLETE INDICATIONS: SNYDER, Pulmonary HTN COMPARISON: None. DESCRIPTION: COMPLETE ECHOCARDIOGRAM Real-time transthoracic echocardiography with 2D, M-mode, spectral and color flow Doppler performed. QUALITY: Technical quality was good. LEFT VENTRICLE: Normal chamber size. Moderate to severe concentric left ventricular hypertrophy. Global left ventricular systolic function is normal. LV EF: Estimated left ventricular ejection fraction is 65%. DIASTOLIC: Grade I diastolic dysfunction. ATRIAL SEPTUM: Aneurysmal atrial septum. LEFT ATRIUM: Mild dilatation. RIGHT ATRIUM: Mild dilatation. RIGHT VENTRICLE: Normal chamber size. Normal right ventricular systolic function. TRICUSPID VALVE: Normal mobility and thickness. No stenosis with mild regurgitation. No evidence of pulmonary hypertension. RVSP 32 mmHg MITRAL VALVE: Normal mobility and thickness. No evidence of mitral valve stenosis. Mild mitral annular calcification. Trivial mitral regurgitation. AORTIC VALVE: Normal trileaflet appearance. No visible sclerosis. Normal leaflet mobility. No evidence of aortic valve stenosis. Trivial aortic regurgitation. AORTIC ROOT: Mildly to moderately dilated aortic root measuring 4.4 cm. The ascending aorta is normal in size measuring 3.6 cm. PULMONIC VALVE: Normal thickness and mobility. No stenosis. Trivial regurgitation. PERICARDIUM: No evidence of pericardial effusion. IVC: Collapses with inspiration. Normal size. PLEURA: CONCLUSION: 1. Moderate to severe concentric left ventricular hypertrophy with normal systolic function. Estimated LVEF is 65%. 2. Normal right ventricular size and systolic function. 3. Grade 1 mild diastolic dysfunction. 4. Mild biatrial dilatation. 5. Mild tricuspid regurgitation. 6. Normal right-sided pressures. 7. 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 Adult Echocardiography Procedure Report Left Ventricle LVEDD (3.7 - 5.6 cm): 4.35 cm LVESD (2.2 - 4.0 cm): 2.90 cm LVIVS thickness (0.6 - 1.2 cm): 1.81 cm LVPW thickness (0.5 - 1.0 cm): 1.47 cm e': 0.08 m/s E - e': 8.68 LVOT Max Gradient: 4.50 mm[Hg] LVOT Area (cm2): 1.06 m/s Peak Velocity (LVOT): 1.06 m/s Mean Velocity (LVOT): 0.75 m/s LVOT Diameter 2.14 cm Left Ventricular Ejection Fraction: 65 % Left Atrium LA Volume Index (2D A2C): 41.80 ml/m2 Left Atrium Systolic Dimension: 3.41 cm Mitral Valve MV E to A Ratio: 0.92 Mitral Valve A-Wave Peak Velocity: 0.78 m/s Mitral Valve E-Wave Peak Velocity: 0.72 m/s Right Ventricle RV Internal Diastolic Dimension: 4.84 cm Aorta AO Root Diam: 4.40 cm Ascending Ao Diam: 3.56 cm Aortic Valve AoV Area (Peak Junaid): 2.70 cm2, 2.70 cm2 AoV Area (VTI): 2.54 cm2, 2.54 cm2 Peak Velocity(Antegrade Flow): 1.41 m/s Peak Gradient(Antegrade Flow): 7.96 mm[Hg] Mean Velocity(Antegrade Flow): 0.96 m/s Mean Gradient(Antegrade Flow): 4.34 mm[Hg] Velocity Time Integral: 34.29 cm Tricuspid Valve Peak Velocity (Regurgitant Flow): 2.68 m/s, 2.67 m/s, 2.40 m/s Pulmonic Valve Peak Velocity: 1.20 m/s Peak Gradient: 5.78 mm[Hg] Right Atrium Right Atrium Systolic Pressure: 108.84 ml, 108.84 ml Dictated by: Corey Marrero M.D. on 11/26/2024 at 19:33 Approved by: Corey Marrero M.D. on 11/26/2024 at 19:43
== END 2024-11-26 06:55 | disposition home or self-care (01) ==
LOC: CARD 06:54
PROVIDERS: PCP Nurse Practitioner Family; Visit Provider Nurse Practitioner Family
DX: R06.09 Other forms of dyspnea (principal); I27.20 Pulmonary hypertension, unspecified
CPT/HCPCS: 93306; 93356

== ENCOUNTER 2025-01-05 23:28 | Outpatient (OUT) | payer MEDICARE, SELFPAY ==
--- OUTSIDE RECORDS SUMMARY | 2025-01-05 23:31 | XMS_ITS | CCD ---
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 fibrillation Left axis deviation Non-specific intra-ventricular conduction block Left ventricular hypertrophy with repolarization abnormality ( R in aVL , Nico product ) Abnormal ECG When compared with ECG of 22-OCT-2023 09:56, (unconfirmed) Afib persists Confirmed by Nasir Yadav ([id number]) on 10/23/2023 8:43:15 AM Echo: 08/23/2023 Stress test: Danilo (more content not included)... Normal [facility] Office Visiton 12-11-2023 Follow-up visit [id number] Harjeet Noriega 1945 M Date Provider Department Center 12/11/2023 241-NASIR YADAV ROCAEL Patel Family History Problem Relation Age of Onset Other Mother Heart failure Mother Family Status - Relation Status Age at Mother Level of Service:34157 IN OFFICE/OUTPATIENT ESTABLISHED LOW [facility] 20 MIN Normal [facility] MRI LSPINE WO CONon 09-29-19 21 MRI LSLYTTON WO CON EXAMINATION: MRI LSPINE WO CON [...] by: JOE VIVAS Date: 2020-09-28 09:11 Normal [facility] US ABD AORTA SCREENINGon ABD AORTA [...] by: PHILLY SHAW Date: 2020-03-26 10:15 Normal [facility] Vital Signs Date Time Vital Sign Value Performing Clinician Kelly medina 12-16-2024 08:55-0400 Diastolic blood pressure 98 mm[Hg] Armando Branham II Work Phone: [facility] 12-16-2024 08:55-0400 Heart rate 54 /min Armando Branham II Work Phone: [facility] 12-16-2024 08:55-0400 SaO2% (BldA) [Mass fraction] 96 % Armando Branham II Work Phone: [facility] 12-16-2024 08:55-0400 Systolic blood pressure 184 mm[Hg] Armando Branham II Work Phone: [facility] 11-11-2024 08:46-0400 Body height 180.34 cm Armando Branham II Work Phone: [facility] 11-11-2024 08:46-0400 Body mass index (BMI) [Ratio] 39.3 kg/m2 Armando Branham II Work Phone: [facility] 11-11-2024 08:46-0400 Body weight 127.91 kg Armando Branham II Work Phone: [facility] 11-11-2024 08:46-0400 Diastolic blood pressure 88 mm[Hg] Armando Branham II Work Phone: [facility] 11-11-2024 08:46-0400 Heart rate 63 /min Armando Branham II Work Phone: [facility] 11-11-2024 08:46-0400 Respiratory rate 16 /min Armando Branham II Work Phone: [facility] 11-11-2024 08:46-0400 SaO2% (BldA) [Mass fraction] 94 % Armando Branham II Work Phone: [facility] 11-11-2024 08:46-0400 Systolic blood pressure 148 mm[Hg] Armando Branham II Work Phone: [facility] 09-09-2024 10:05-0400 Body height 180.3 cm Ermelinda CA Work Phone: [facility] 09-09-2024 10:05-0400 Body mass index (BMI) [Ratio] 39.64 kg/m2 Ermelinda Hemmer PA Work Phone: [facility] 09-09-2024 10:05-0400 Body weight 128.91 kg Ermelinda Hemmer PA Work Phone: [facility] 09-09-2024 10:05-0400 Diastolic blood pressure 76 mm[Hg] Ermelinda Hemmer PA Work Phone: [facility] 09-09-2024 10:05-0400 Heart rate 56 /min Ermelinda Hemmer PA Work Phone: [facility] 09-09-2024 10:05-0400 Respiratory rate 16 /min Ermelinda Hemmer PA Work Phone: [facility] 09-09-2024 10:05-0400 SaO2% (BldA) [Mass fraction] 95 % Ermelinda Hemmer PA Work Phone: [facility] 09-09-2024 10:05-0400 Systolic blood pressure 122 mm[Hg] Ermelinda Hemmer PA Work Phone: [facility] 07-30-2024 08:44-0400 Body height 180.3 cm Ángela Rausch [employer] Work Phone: [facility] 07-30-2024 08:44-0400 Body mass index (BMI) [Ratio] 39.41 kg/m2 Ángela Rausch [employer] Work Phone: [facility] 07-30-2024 08:44-0400 Body weight 128.19 kg Ángela Rausch [employer] Work Phone: [facility] 07-30-2024 08:44-0400 Diastolic blood pressure 78 mm[Hg] Ángela Rausch [employer] Work Phone: [facility] 07-30-2024 08:44-0400 Heart rate 48 /min Ángela Rausch [employer] Work Phone: [facility] 07-30-2024 08:44-0400 Respiratory rate 16 /min Ángela Rausch [employer] Work Phone: [facility] 07-30-2024 08:44-0400 SaO2% (BldA) [Mass fraction] 96 % Ángela Rausch [employer] Work Phone: [facility] 07-30-2024 08:44-0400 Systolic blood pressure 136 mm[Hg] Ángela Rausch [employer] Work Phone: [facility] 07-29-2024 08:47-0400 Diastolic blood pressure 92 mm[Hg] Christopher Michelle DO Work Phone: [facility] 07-29-2024 08:47-0400 Heart rate 56 /min Christopher Michelle DO Work Phone: [facility] 07-29-2024 08:47-0400 SaO2% (BldA) [Mass fraction] 98 % Christopher Michelle DO Work Phone: [facility] 07-29-2024 08:47-0400 Systolic blood pressure 156 mm[Hg] Christopher Michelle DO Work Phone: [facility] 05-21-2024 10:37-0500 Body height 180.3 cm Ermelinda Hemmer PA Work Phone: [facility] 05-21-2024 10:37-0500 Body mass index (BMI) [Ratio] 39.86 kg/m2 Ermelinda Hemmer PA Work Phone: [facility] 05-21-2024 10:37-0500 Body weight 129.64 kg Ermelinda Hemmer PA Work Phone: [facility] 05-21-2024 10:37-0500 Diastolic blood pressure 76 mm[Hg] Ermelinda Hemmer PA Work Phone: [facility] 05-21-2024 10:37-0500 Heart rate 53 /min Ermelinda Hemmer PA Work Phone: [facility] 05-21-2024 10:37-0500 Respiratory rate 16 /min Ermelinda Hemmer PA Work Phone: [facility] 05-21-2024 10:37-0500 SaO2% (BldA) [Mass fraction] 95 % Ermelinda Kidd PA Work Phone: [facility] 05-21-2024 10:37-0500 Systolic blood pressure 112 mm[Hg] Ermelinda Regina PA Work Phone: [facility] 04-09-2024 09:52-0500 Diastolic blood pressure 88 mm[Hg] Christopher Michelle DO Work Phone: [facility] 04-09-2024 09:52-0500 Heart rate 55 /min Christopher Michelle DO Work Phone: [facility] 04-09-2024 09:52-0500 SaO2% (BldA) [Mass fraction] 96 % Christopher Michelle DO Work Phone: [facility] 04-09-2024 09:52-0500 Systolic blood pressure 162 mm[Hg] Christopher Michelle DO Work Phone: [facility] 03-06-2024 08:20-0500 Body height 180.3 cm Jenn Talavera [employer] Work Phone: [facility] 03-06-2024 08:20-0500 Body mass index (BMI) [Ratio] 38.63 kg/m2 Jenn Talavrea [employer] Work Phone: [facility] 03-06-2024 08:20-0500 Body weight 125.65 kg Jenn Talavera [employer] Work Phone: [facility] 03-06-2024 08:20-0500 Diastolic blood pressure 70 mm[Hg] Jenn Talavera [employer] Work Phone: [facility] 03-06-2024 08:20-0500 Heart rate 57 /min Jenn Talavera [employer] Work Phone: [facility] 03-06-2024 08:20-0500 SaO2% (BldA) [Mass fraction] 93 % Jenn Talavera [employer] Work Phone: [facility] 03-06-2024 08:20-0500 Systolic blood pressure 152 mm[Hg] Jenn Talavera [employer] Work Phone: [facility] 01-16-2024 10:18-0400 Diastolic blood pressure 102 mm[Hg] Nanette Martinez DO Work Phone: [facility] 01-16-2024 10:18-0400 Heart rate 58 /min Nanette Martinez DO Work Phone: [facility] 01-16-2024 10:18-0400 SaO2% (BldA) [Mass fraction] 94 % Nanette Martinez DO Work Phone: [facility] 01-16-2024 10:18-0400 Systolic blood pressure 164 mm[Hg] Nanette Martinez DO Work Phone: [facility] Healthcare Encounters Encounter Date Encounter Type Care Provider Facility Start: 12-16-2024 End: 12-16-2024 ambulatory Armando Branham II Work Phone: [facility] Work Phone: Start: 12-16-2024 End: 12-16-2024 Patient encounter procedure Nanette Duong DO -[facility] [place] Work Phone: Start: 12-03-2024 End: 12-03-2024 ambulatory ARMANDO BRANHAM Not Available Start: 11-11-2024 End: 11-11-2024 ambulatory Armando Branham II Work Phone: [facility] Work Phone: Start: 11-11-2024 End: 11-11-2024 Patient encounter procedure Jenn Talavera WATER QUALITY TECHNICIAN-TIME STUDY TECHNICIAN-C -[facility] [place] Work Phone: Start: 10-15-2024 End: 10-15-2024 ambulatory [facility] Start: 09-09-2024 End: 09-09-2024 Mac CA Work Phone: [facility] Start: 09-09-2024 End: 09-09-2024 Mac CA Work Phone: [facility] Start: 09-09-2024 End: 09-09-2024 Office outpatient visit 25 minutes Ermelinda Kidd PA Work Phone: [facility] Comment on above: Benign essential hyp ertension (CMS/HCC) (Primary Dx); Bilateral lower extremity edema Start: 09-09-2024 End: 09-09-2024 ambulatory ERMELINDA KIDD Not Available Start: 08-13-2024 End: 08-18-2024 Telephone encounter Armando Branham MD Work Phone: [facility] Start: 07-30-2024 End: 07-30-2024 Assay of hemosiderin, quant Ángela Rausch [employer] Work Phone: [facility] Start: 07-30-2024 End: 07-30-2024 Patient encounter procedure Ángela Rausch [employer] Work Phone: [facility] Comment on above: Medicare annual [facility] visit, subsequent (Primary Dx); Lumbar radiculopathy; Lumbosacral [...] cancer Start: 07-30-2024 End: 07-30-2024 ambulatory ÁNGELA RAUSCH Not Available Start: 07-29-2024 End: 07-29-2024 Bambodevaughn Plazaer Michelle DO Work Phone: [facility] Start: 07-29-2024 End: 07-29-2024 Bamboo flowsheet Bolasarah Michelle DO Work Phone: [facility] Start: 07-29-2024 End: 07-29-2024 Patient encounter procedure Nanette Martinez DO Work Phone: [facility] Comment on above: Lumbar facet arthrop athy (Primary Dx) Start: 07-29-2024 End: 07-29-2024 ambulatory BOLASARAH MICHELLE Not Available Start: 07-22-2024 End: 07-22-2024 ambulatory JENN TALAVERA Not Available Start: 06-09-2024 End: 06-09-2024 Refill Raphael [facility] Comment on above: Lumbar facet arthrop athy (Primary Dx); Spinal stenosis of lumbar region, unspecified whether neurogenic claudication present; Radiculopathy, lumbosacral region Start: 05-21-2024 End: 05-21-2024 Bamboo flowsheet Ermelinda Kidd PA Work Phone: [facility] Start: 05-21-2024 End: 05-21-2024 Bamboo flowsheet Ermelinda Kidd PA Work Phone: [facility] Start: 05-21-2024 End: 05-21-2024 Office outpatient visit 25 minutes Ermelinda Kidd PA Work Phone: [facility] Comment on above: Impaired fasting glu cose (Primary Dx); Right acute otitis media Start: 05-21-2024 End: 05-21-2024 ambulatory ERMELINDA KIDD Not Available Start: 04-09-2024 End: 04-09-2024 Bamboo flowsheet Nanette Alfonsoett DO Work Phone: [facility] [place] [address] [facility] Start: 04-09-2024 End: 04-09-2024 Bamboo flowsheet Nanette Alfonsoett DO Work Phone: [facility] [place] [address] [facility] Start: 04-09-2024 End: 04-09-2024 Patient encounter procedure Nanette Martinez DO Work Phone: [facility] Comment on above: Lumbar facet arthrop athy; Spinal stenosis of lumbar region, unspecified whether neurogenic claudication present Start: 04-09-2024 End: 04-09-2024 ambulatory NANETTE MARTINEZ Not Available Start: 04-08-2024 End: 04-08-2024 ambulatory [facility] Start: 03-12-2024 End: 03-12-2024 Clinisync Result Encounter Jenn Talavera [employer] Work Phone: [facility] Unsolicited Start: 03-12-2024 End: 03-12-2024 Clinisync Result Encounter Jenn Talavera [employer] Work Phone: [facility] Unsolicited Start: 03-06-2024 End: 03-06-2024 Bamboo flowsheet Jenn Talavera [employer] Work Phone: [facility] Start: 03-06-2024 End: 03-06-2024 Bamboo flowsheet Jenn Talavera [employer] Work Phone: [facility] Start: 03-06-2024 End: 03-06-2024 Office outpatient visit 25 minutes Jenn Talavera [employer] Work Phone: [facility] Comment on above: Lumbar facet arthrop athy (Primary Dx); Spinal stenosis of lumbar region, unspecified whether neurogenic claudication present; Radiculopathy, lumbosacral region; Encounter for medication monitoring; Nocturnal leg cramps; Polyneuropathy Start: 03-06-2024 End: 03-06-2024 ambulatory JENN TALAVERA Not Available Start: 02-06-2024 End: 02-06-2024 [facility] Start: 01-18-2024 End: 01-18-2024 ambulatory [facility] Start: 01-16-2024 End: 01-16-2024 Bamboo flowsheet Nanette Martinez DO Work Phone: [facility] Start: 01-16-2024 End: 01-16-2024 Bamboo flowsheet Nanette Martinez DO Work Phone: [facility] Start: 01-16-2024 End: 01-16-2024 ambulatory NANETTE MARTINEZ Not Available Start: 01-16-2024 End: 01-16-2024 Patient encounter procedure Nanette Martinez DO Work Phone: [facility] Comment on above: Lumbar facet arthrop athy (Primary Dx) Start: 12-19-2023 ambulatory [facility] Start: 12-19-2023 End: 12-19-2023 ambulatory [facility] Start: 12-12-2023 End: 12-12-2023 ambulatory JENN TALAVERA Not Available Start: 12-11-2023 End: 12-11-2023 ambulatory [facility] Start: 09-28-2020 End: 09-29-2020 ambulatory SALVATORE MOYA Facility:[facility] Start: 08-03-2020 End: 08-04-2020 ambulatory NONE LISTED REQUEST Facility:[facility] Start: 07-12-2020 End: 07-13-2020 ambulatory NONE LISTED REQUEST Facility:[facility] Start: 03-26-2020 End: 03-27-[address] ARMANDO BRANHAM Facility: Procedures Date Procedure Procedure Detail Performing Clinician Start: 07-30-2024 Hemoglobin glycosyla benjamín a1c Ángela Rausch [employer] Work Phone: Start: 07-29-2024 NERVE BLOCK Jenn alexis [employer] Work Phone: Start: 05-21-2024 Hemoglobin glycosyla benjamín a1c Ermelinda Kidd PA Work Phone: Start: 03-12-2024 ALL VITAMIN B6 Jenn bob [employer] Work Phone: Start: 03-12-2024 [facility] DRUG SCREEN RAPI D (URINE) Jenn Talavera [employer] Work Phone: Plan of Treatment Date Care Activity Detail Author Start: 07-30-2025 Medicare Annual Wellness (AWV) Medicare Annual Wellness (AWV) [facility] Start: 07-30-2025 Urine screening for protein Diabetes: Urine Protein Screening [facility] Start: 12-16-2024 End: 12-16-2024 Patient encounter procedure 12/16/2024 9:00 AM EDT Office Visit [facility] [address] [place] [phone] Nanette Martinez DO [address] [place], [place] [id number] [facility] Start: 12-03-2024 End: 12-03-2024 Patient encounter procedure 12/03/2024 9:30 AM EDT Office Visit [facility] [address] [place] [address] Armando Branham MD [address] [place] [address] [facility] Start: 11-11-2024 End: 11-11-2024 Patient encounter procedure 11/11/2024 8:40 AM EDT Office Visit [facility] [address] [place] [phone] Jenn Talavera NP [address] [place] [phone] [facility] Start: 10-29-2024 Hemoglobin A1c measurement Diabetes: Hemoglobin A1C [facility] Start: 09-09-2024 End: 09-09-2024 Patient encounter procedure 09/09/2024 10:00 AM EDT Office Visit [facility] [address] [place] [address] Ermelinda Kidd PA [address] [place] [address] Arrived [facility] Comment on above: Arrived Start: 08-19-2024 Hemoglobin A1c measurement Diabetes: Hemoglobin A1C [facility] Start: 08-07-2024 Urine screening for protein Diabetes: Urine Protein Screening [facility] Start: 07-31-2024 Medicare Annual Wellness (AWV) Medicare Annual Wellness (AWV) [facility] Start: 07-30-2024 End: 07-30-2025 CBC panel - Blood by Automated count CBC Lab Routine Benign essential hypertension (CMS/HCC) Impaired fasting glucose Expected: 07/30/2024 (Approximate), Expires: 07/30/2025 [facility] Comment on above: Expected: 07/30/2024 (Approximate), Expi res: 07/30/2025 Start: 07-30-2024 End: 07-30-2025 Comprehensive metabolic 2000 panel - Serum or Plasma Comprehensive metabolic panel Lab Routine Benign essential hypertension (CMS/HCC) Impaired fasting glucose Expected: 07/30/2024 (Approximate), Expires: 07/30/2025 [facility] Comment on above: Expected: 07/30/2024 (Approximate), Expi res: 07/30/2025 Start: 07-30-2024 End: 07-30-2025 Lipid 1996 panel - Serum or Plasma Lipid panel Lab Routine Pure hypercholesterolemia (CMS/HCC) Expected: 07/30/2024 (Approximate), Expires: 07/30/2025 [facility] Comment on above: Expected: 07/30/2024 (Approximate), Expi res: 07/30/2025 Start: 07-30-2024 End: 07-30-2025 Microalbumin/Creatinin e panel in random Urine Microalbumin / creatinine, urine ratio Lab Routine Type 2 diabetes mellitus with other specified complication, without long-term current use of insulin (CMS/[facility]) Expected: 07/30/2024 (Approximate), Expires: 07/30/2025 [facility] Comment on above: Expected: 07/30/2024 (Approximate), Expi res: 07/30/2025 Start: 07-30-2024 End: 07-30-2025 Prostate specific Ag [Mass/volume] in Serum or Plasma PSA Lab Routine Screening for prostate cancer Expected: 07/30/2024 (Approximate), Expires: 07/30/2025 [facility] Work Phone: Comment on above: Expected: 07/30/2024 (Approximate), Expi res: 07/30/2025 Start: 07-30-2024 End: 07-30-2024 Patient encounter procedure [facility] [place] [address] [facility] Start: 07-30-2024 End: 07-30-2024 Patient encounter procedure 07/30/2024 8:30 AM EDT Office Visit [facility] [address] [place] [address] Ángela Rausch, [employer] [address] [place] [address] [facility] Start: 07-29-2024 End: 07-29-2024 Patient encounter procedure 07/29/2024 9:00 AM EDT Office Visit [facility] [address] [place] [phone] Nanette Martinez DO [address] [place] [address] Arrived [facility] Comment on above: Arrived Start: 07-22-2024 End: 07-22-2024 Patient encounter procedure [facility] [address] Start: 05-21-2024 End: 05-21-2024 Patient encounter procedure 05/21/2024 10:30 AM EST Office Visit [facility] [address] [place] [address] Ermelinda Kidd, PA [address] [place] [address] Arrived [facility] Comment on above: Arrived Start: 04-09-2024 End: 03-06-2025 Nerve Block Nerve Block Procedures Routine Lumbar facet arthropathy Spinal stenosis of lumbar region, unspecified whether neurogenic claudication present Expected: 04/09/2024 (Approximate), Expires: 03/06/2025 [facility] Comment on above: Expected: 04/09/2024 (Approximate), Expi res: 03/06/2025 Start: 04-09-2024 End: 04-09-2024 Patient encounter procedure [facility] [place] [address] Comment on above: Arrived Start: 03-06-2024 End: 03-06-2025 Drugs of abuse panel - Urine by Screen method Toxicology screen, urine Lab Routine Encounter for medication monitoring Expected: 03/06/2024 (Approximate), Expires: 03/06/2025 [facility] Work Phone: Comment on above: Expected: 03/06/2024 (Approximate), Expi res: 03/06/2025 Start: 03-06-2024 End: 03-06-2025 Vitamin B6 Vitamin B6 Lab Routine Polyneuropathy Expected: 03/06/2024 (Approximate), Expires: 03/06/2025 [facility] Comment on above: Expected: 03/06/2024 (Approximate), Expi res: 03/06/2025 Start: 03-06-2024 End: 03-06-2024 Patient encounter procedure 03/06/2024 8:20 AM EST Office Visit [facility] [address] [place] [address] [phone] Jenn Talavera NP [address] [place] [address] Lumbar facet arthropathy (Primary Dx); Spinal stenosis of lumbar region, unspecified whether neurogenic claudication present; Radiculopathy, lumbosacral region; Encounter for medication monitoring; Nocturnal leg cramps; Polyneuropathy [facility] [place] [facility] Comment on above: Lumbar facet arthropathy (Primary Dx); Spinal stenosis of lumbar region, unspecified whether neurogenic claudication present; Radiculopathy, lumbosacral region; Encounter for medication monitoring; Nocturnal leg cramps; Polyneuropathy Start: 03-05-2024 End: 03-05-2024 Patient encounter procedure 03/05/2024 9:40 AM EST Office Visit [facility] [place] [address] [place] [address] Jenn Talavera NP [address] [place] [address] [facility] [place] [address] Start: 12-30-2023 Influenza vaccination Influenza Vaccine (#1) [facility] Start: 10-31-2023 Hemoglobin A1c measurement Diabetes: Hemoglobin A1C [facility] Start: 08-05-1957 Glaucoma screening Diabetes: Retinopathy Screening [facility] Patient Education Low back pain in adults [facility] Work Phone: Immunizations Immunization Date Immunization Notes Care Provider Merle huertas 02-24-2023 Influenza, Seasonal, Quadrivalent, Adjuvanted Christopher Michelle DO Work Phone: [facility] 02-24-2023 influenza virus vacc ine, unspecified formulation Christopher Michelle DO Work Phone: [facility] 02-28-2022 influenza, injectabl e, quadrivalent, preservative free Christopher Michelle DO Work Phone: [facility] 02-08-2021 Influenza, injectabl e, Madin [place] Canine Kidney, preservative free, quadrivalent Christopher Michelle DO Work Phone: [facility] 05-27-2020 pneumococcal conjuga te vaccine, 13 valent Christopher Michelle DO Work Phone: [facility] 01-29-2020 influenza, injectabl e, quadrivalent, preservative free Christopher Michelle DO Work Phone: [facility] 04-25-2019 zoster vaccine recombinant Christopher Michelle DO Work Phone: [facility] 02-14-2019 zoster vaccine recombinant Christopher Michelle DO Work Phone: [facility] 02-11-2019 influenza, high dose seasonal, preservative-free Christopher Michelle DO Work Phone: [facility] 09-25-2018 pneumococcal conjuga te vaccine, 13 valent Christopher Michelle DO Work Phone: [facility] 02-03-2018 influenza, high dose seasonal, preservative-free Christopher Michelle DO Work Phone: [facility] 01-12-2015 seasonal influenza, intradermal, preservative free Christopher Michelle DO Work Phone: [facility] 04-14-2014 zoster vaccine, live Leobardo pher Michelle DO Work Phone: [facility] 04-07-2014 pneumococcal polysaccharide vaccine, 23 valent Christopher Michelle DO Work Phone: [facility] 02-19-2014 seasonal influenza, intradermal, preservative free Nanette Martinez DO Work Phone: [facility] Healthcare Payers Date Payer Category Payer Medicare HUMANA MEDICARE ADVANTAGE HU[employer]NA MEDICARE [id number] 2017-Present [address] [place] [id number] 2017 Medicare (Managed Care) HUMANA EDICARE ADVANTAGE [id number] 1959 Medicare [id number] 1959 Self-pay 1945 Unknown [id number] 2.840.1.542331.3.579. 2.593 1947 Unknown [id number] 2.840.1.273472.3.579. 2.593 1947 Unknown [id number] 2.840.1.461877.3.579. 2.1259 1947 Unknown [id number] 2.16840.1.612586.3.579. 2.1259 1947 Unknown [id number] 2.16840.1.343512.3.579. 2.1259 1947 Unknown [id number] 2.840.1.881012.3.579. 2.1259 1947 Unknown [id number] 2.16.840.1.526417.3.579. 2.1259 1947 Unknown [id number] 2.16.840.1.851525.3.579. 2.9 1947 Unknown [id number] 2.16.840.1.066357.3.579. 2.1259 1947 Unknown [id number] 2.16.840.1.505688.3.579. 2.125 1947 Unknown [id number] 2.16.840.1.578378.3.579. 2.1259 1947 Unknown [id number] 2.16.840.1.785262.3.579. 2.1259 Unknown [id number] 2.16.840.1.411963.3.579. 2.593 Unknown [id number] 2.16.840.1.925623.3.579. 2.593 Social History Date Type Detail Facility Start: 01-16-2024 End: 11-11-2024 Tobacco smoking status WAIS Ex-smoker [facility] End: 04-30-1991 History of tobacco use Current smoker [facility] End: 04-30-1991 History of tobacco use Cigarette Smoker [facility] History of tobacco use Pipe Smoker [facility] History of tobacco use Cigar Smoker [facility] Start: 10-25-2022 End: 01-16-2024 Tobacco use and exposure Smokeless tobacco non-user [facility] Healthcare Start: 01-16-2024 End: 09-09-2024 Alcoholic beverage intake Current drinker of alcohol (finding) [facility] Start: 01-16-2024 End: 09-09-2024 History of Social function [facility] Start: 01-16-2024 End: 09-09-2024 Tobacco use panel [facility] Start: 11-05-2022 Alcohol Comment Coffee 2-3 cup s per day [facility] Start: 1945 Sex assigned at Not on file [facility] Tobacco smoking stat [facility] Unknown if ever smoked [facility] Work Phone: Sex Male (finding) [facility] Start: 1945 Sex Assigned At Male F [facility] Functional Status Date Assessment Result Facility 09-09-2024 Patient Health [facility] ionnaire 2 item (PHQ-2) [Reported] [facility] Clinical Notes 12-11-2023 to 11-27-2024 Note Date & Type Note Facility 11-27-2024 Note Looks like there's s ome increase in fluid around his lungs. Please have him take an extra tablet of bumex in the AM for the next 3 days. Let us know how he is doing next week. Thanks [facility] 11-11-2024 Evaluation note Diagnosis Onset Date Resolution Low back pain chronic November 11, 2024 8:43am Lumbar facet arthropathy chronic November 11, 2024 8:43am Lumbosacral radiculopathy chronic November 11, 2024 8:43am Nocturnal leg cramps chronic November 11, 2024 8:43am Polyneuropathy chronic November 11, 2024 8:43am Spinal stenosis of lumbar region chronic November 11, 2024 8:43am [facility] Work Phone: [phone] NotePatient is here today for a 6 month follow up. Patient complains of SNYDER, leg swelling, weakness bilateral legs. Patient seen Dr. Branham for these issues to his weight and some of the medications he is on. Review of Systems Cardiovascular: Positive for dyspnea on exertion and leg swelling. Musculoskeletal: Positive for muscle weakness (legs).[facility]06-18-2025 [facility]Cardiovascular Medicine [facility] SUBJECTIVE Chief Complaint Patient presents with [...] needed each day., Disp: , Rfl: HYDROcodone-acetaminophen (Sherrill) 5-325 mg tablet, Take 1 tablet by [...] lower leg: Edema present. (more content not included)...[facility]05-13-2025 History of Present illness Narrative* ROBY Gandara - 09/09/2024 10:00 AM EDT Images from the original note were not included. Subjective Patient ID: Harjeet Noriega is a 79 y.o. male who presents for edema. Harjeet is present today for evaluation of edema. Admits it is in bilateral lower extremity (right leg worse than left leg). This is an ongoing issue for him. He does have 2+ pitting edema in bilaterallegs. states has seen Dr. Branham for this [...] nasal spray ADMINISTER 1-2 SPRAYS INTO EACH NOSTRILDAILY SHAKE GENTLY. BEFORE FIRST USE, PRIME PUMP. AFTER USE, CLEAN TIP AND REPLACE CAP (Patient nottaking: Reported on 07/22/2024) 48 mL 3 [DISCONTINUED] [...] 12/10/2024) for Leg Swelling. documented in this [facility]04-16-2025 Telephone encounter Note* Telephone Encounter - Alem Gustafson - 08/13/2024 9:48 AM EDT Patient has swelling in his legs. States he's seen DB about this before but wondered if something could be called in to [facility] in [place] for this. [facility] [id number] Miscellaneous Notes* Telephone Encounter - Alem Gustafson - 08/13/2024 9:48 AM EDT Patient has swelling in his legs. States he's seen DB about this before but wondered if something could be called in to [facility] in [place] for this. documented in this [facility]04-02-2025 History of Present illness Narrative* Ángela Rausch NP - 07/30/2024 8:30 AM EDT Images from the original note were not [...] Branham MD as PCP - Everton Talavera NP as Nurse Practitioner (Neurology) Nanette Martinez DO [...] taxes?: Yes Cognitive Screening Three Word Registration: Tana Millerrise, Chair Clock Drawing: Normal Clock - 2 Three Word Recall: All 3 words correct - 3 Total Score (0-5 Points): 5 Advance Care Planning Do you have a living will?: No Do you have a medical power of civil litigation attorney?: No Objective : BP 136/78 Pulse (!) [...] All needed testing was ordered. Will continue withyearly Medicare Wellness exams. 2. Lumbar radiculopathy This [...] controlled. Continue with current medications and I willcontinue to monitor. Goal BP remains less than [...] Discussed minimizing high carb, high sugar, high sodium,portion control, and processed foods while making healthy [...] Discussed minimizing high carb, high sugar, high sodium,portion control, and processed foods while making healthy [...] controlled. Continue with current medications and I willcontinue to monitor. Goal BP remains less than 130/80. 26. Routine general medical examination at [facility] care facility Reviewed all relevant preventative screenings with the patient in detail. Medicare Wellness form completed and will be scanned into patient's chart. All needed testing was ordered. Will continue withyearly Medicare Wellness exams. 27. Type 2 diabetes mellitus with other specified complication, without long- term current use of insulin Discussed today the [...] patient. If the patient still has questions onthis, a referral to a Dietitian can be arranged. Reviewed medications that aid in diabetic control.Discussed proper dosing and educated the patient on [...] on July 30, 2024 documented in this encounterLee's Summit [id number] History of Present illness Narrative* Nanette Martinez DO - 07/29/2024 9:00 AM EDTAssociated Order(s): Nerve Block Pre-Procedure Diagnose(s): Lumbar facet [...] apixaban, blood pressure, nebivolol, omeprazole, rabeprazole, and valsartan- hydrochlorothiazide, and the following Facility-Administered Medications: bupi vacaine and dexamethasone sod phos. Vitals: Visit Vitals [...] and was tolerated well. The patient was monitoredafter the procedures. The patient (or the responsible constitution party) was given post-procedure and dischargeinstructions to follow at home. The patient was discharged in stable condition. A follow-up appointment was made. The patient has been instructed to call us in 2-3 hours to inform us what percentage of pain reliefwas obtained after the facet nerve block(s) from today. The patient was also instructed to do activities that would normally worsen the pain. Pre-procedure pain score: 6 /10 Registered Representative: RT Kathryn(R) kVp: 103 Time (sec): 18 mA: 3.0 Patient ID: Harjeet Noriega is a 78 y.o. male. Nerve Block Date/Time: 07/29/2024 9:10 AM Performed by: Nanette Martinez DO Authorized by: Jenn Talavera NP Consent: Consent obtained: Written Consent given by: Patient Stanton protocol: Procedure explained and questions answered to patient or proxy's satisfaction: yes Patient identity confirmed: Verbally with patient Location: Body area: Trunk Trunk nerve: Lumbar Procedure details: Guidance: fluoroscopy Steroid injected: Dexamethasone Post-procedure details: Procedure completion: Tolerated documented in this encounterLee's Summit [id number] Telephone encounter Note* Telephone Encounter - Jenn Talavera NP - 06/09/2024 11:52 AM EST OARRS reviewed. Due now. Prescription sent. [id number] Miscellaneous Notes* Telephone Encounter - Jenn Talavera NP - 06/09/2024 11:52 AM EST OARRS reviewed. Due now. Prescription sent. * Telephone Encounter - Raphael Macdonald MA - 06/09/2024 11:44 AM EST Patients calls in for refill of norco. OARRS reviewed last filled 03/06/24. Medication is pending. documented in this encounterLee's Summit [id number] Telephone encounter Note* Telephone Encounter - Raphael Macdonald MA - 06/09/2024 11:44 AM EST Patients calls in for refill of norco. OARRS reviewed last filled 03/06/24. Medication is pending. [facility] [id number] History of Present illness Narrative* ROBY Gandara - 05/21/2024 10:30 AM EST Images from the original note were not included. Subjective Patient ID: Harjeet Noriega is a 78 y.o. male who presents for earache. Harjeet is present today for evaluation of ear [...] that it has ever been > 126. HljNodK3o's remain < 6.5. Would plan to monitor every 6-12 months. Aim for healthy diet. Limit simple sugars and carbs. Right acute otitis media - fluticasone (Flonase) 50 MCG/ACT nasal spray; Administer 1-2 sprays into each nostril Daily Shakegently. Before first use, prime pump. After use, clean tip and replace cap. - amoxicillin (Amoxil) 875 MG tablet; Take 1 tablet (875 mg) by mouth in the morning and 1 tablet (875 mg) before bedtime. Do all this for 10 days. Start the above as directed. Reviewed potential s/e with patient and his . Encouraged probioticwhile on antibiotic. Increase water intake, get plenty of rest. Flonase as prescribed to help with ETD. Follow up if no improvement in one week. Follow up in about 3 months (around 08/19/2024) for Medicare Wellness Visit. documented in this encounterLee's Summit [id number] History of Present illness Narrative* ELIDA Peralta - 04/09/2024 10:00 AM EST Images from the original note were not [...] and was tolerated well. The patient was monitoredafter the procedures. The patient (or the responsible constitution party) was given post-procedure and dischargeinstructions to follow at home. The patient was discharged in stable condition. A follow-up appointment was made. The patient has been instructed to call us in 2-3 hours to inform us what percentage of pain reliefwas obtained after the facet nerve block(s) from today. The patient was also instructed to do activities that would normally worsen the pain. Pre-procedure pain score: 6 /10 Registered Representative: RT Kathryn(R) kVp: 103 Time (sec): 23 mA: 3.0 documented in this encounterAndrew Ville [id number] NoteUT Electrophysiology Consult Note [place] [facility] Reason for visit: atrial fibrillation 04/08/24 [...] Tobacco Use: Medium Risk (03/06/2024) Received from [facility] Patient History Smoking Tobacco Use: Former Smokeless Tobacco Use: Never Passive Exposure: Not on file Alcohol Use: Not on file Financial Resource Strain: Not on file Food Insecurity: Not on file Transportation Needs: Not on file Physical Activity: Not on file Stress: Not on file Social Connections: Not on file Intimate Partner Violence: Unknown (08/13/2023) [place] Safety & Environment Fear of Current or Ex-Partner: Not on file Emotionally Abused: Not on file Physically Abused: Not on file Sexually Abused: Not on file Physically or Sexually Abused: Not on file Depression: Not at risk (08/01/2023) Received from [facility], [facility] PHQ-2 Patient Health Questionnaire-2 Score: 0 Housing [...] ear Nose: no lesions (more content not included)...[facility]11-07-2024 History of Present illness Narrative* Jenn Talavera NP - 03/06/2024 8:20 AM EST Images from the original note were not [...] and states this has not worsened since theprevious appointment. He takes Sherrill once a day as needed for pain [...] is why the labs were not completed. Nofurther concerns reported. Review of Systems Constitutional: Negative [...] HYDROcodone-acetaminophen 5-325 MG tablet; Commonly known as: Sherrill; Take 1 tablet by mouth Daily 1daily as needed for severe pain nebivolol 10 [...] to person, place, and time. Recent and remotememory are intact. Speech is clear and fluent [...] extensors , and wrist flexor strength 5/5. Business Segment Manager strength 4+/5. LUE strength deltoid , biceps , triceps , wrist extensors , and wrist flexor strength 5/5. Business Segment Manager strength 4+/5. RLE strength iliopsoas , quadriceps [...] reflex 0. LLE knee reflex 0. Coordination: Pmqoky-sl-vpaq testing normal. Rapid alternating movements are normal. Gait: Steady, slow. Review and summary of old records: Labs via [facility] on 07/18/23: Vitamin B6 88.6 (elevated; normal range is 2.1 to 21.7). Labs via [facility] on 12/13/22: Hgb A1C 6.0%. Immunofixation and protein electrophoresis unremarkable. TSH 1.79. Copper 109 (WNL). Vitamin B6 24.8 (elevated). B12 318. Lyme disease Ab negative. DRU screen negative. Urine drug screen negative EMG of the bilateral lower extremities at [facility] on 11/23/22: A generalized process, such as polyneuropathy, which is severe in degree electrically and axonal loss in type. A superimposed radicular process cannot be excluded. MRI lumbar spine w/o contrast at [facility] on 09/28/20: Degenerative changes and multilevel [...] significant than left). He denies history of diabetesor significant alcohol use. Polyneuropathy lab evaluation on [...] detail. All questions answered. The patient verbalizes under standing and is agreeable to the plan. Discussion in layman's terms. Follow up in the office within 3 months; sooner if needed for new or worsening symptoms. SHAHRIAR Benitez [facility] documented in this [facility]11-07-2024 Instructions* Patient Instructions* Jenn Talavera NP - 03/06/2024 8:20 AM EST - Check labs including urine drug screen - Next injection is scheduled for 04/09/2024 documented in this [facility]10-09-2024 NotePatient here for elevated BP's after increasing amlodipine to 10mg per Argelia Salinas CNP on 01/25/2024. says PCP stopped amlodipine 6+ months ago due to LE edema. He is now back to taking 10mg daily per Argelia Salinas. Says he has some LE edema but it's not as bad as it was a few months back. 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 He had breakfast and took his meds this morning at 8:30am. BP at 9:45am was 176/86. Review of Systems Cardiovascular: Positive for dyspnea on exertion and leg swelling. All other systems reviewed and are negative.[facility] 02-06-2024 NoteCardiovascular Medicine [facility] SUBJECTIVE Chief Complaint Patient presents with [...] Value Ventricular Rate 54 Atrial Rate 54 IN Interval 276 QRS DURATION 180 Q (more content not included)...[facility]09-20-2024 NoteHypertension is uncontrolled in office but he has [...] unknown reason Continue valsartan-hydrochlorothiazide 320-25mg daily and toprolUnMercy Health St. [facility]-2024 NotePt is here for a follow up from a fib ablation. Pt denies sob, palpatation, chest pain. Review of Systems All other systems reviewed and are negative.[facility] 01-18-2024 NoteUTP CARDIOLOGY PROGRESS NOTE HPI: Harjeet Noriega is a 78 [...] 47bpm) [place] 670ms pacing (more content not included)...[facility]09-20-2024 [id number] score is 4 Remains on Amiodarone, metoprolol [...] 911 for lightheadedness, dizziness, syncope or any concernsSelect Medical [facility]Health [facility] Hospital09-18-2024 History of Present illness Narrative* Pedro Brysongenaro, ARRT - 01/16/2024 10:15 AM EDT Reason for Appointment: Facet Injection Patient ID: [...] and was tolerated well. The patient was monitoredafter the procedures. The patient (or the responsible constitution party) was given post-procedure and dischargeinstructions to follow at home. The patient was discharged in stable condition. A follow-up appointment was made. The patient has been instructed to call us in 2-3 hours to inform us what percentage of pain reliefwas obtained after the facet nerve block(s) from today. The patient was also instructed to do activities that would normally worsen the pain. Pre-procedure pain score: 5-6 /10 Registered Representative: RT Kathryn(R) kVp: 103 Time (sec): 16 mA: 3.0 documented in this encounterLee's Summit [id number] NotePatient: Harjete Noriega Procedure Summary Date: 12/19/23 Room / Location: [facility] DISPLAY DESIGNER 1 EP / [facility] (Cath) Anesthesia Start: 834 [...] were no known notable events for this encounter.[facility]08-21-2024 NoteATRIAL FIBRILLATION ABLATION PROCEDURE NOTE DATE OF PROCEDURE: [...] Coumadin ridge. Esophagus was mapped using the LifeblobUND 3D mapping software and noted to be [...] a small subeustachian po (more content not included)...[facility]08-21-2024 NoteArterial Line: Date/Time: 12/19/2023 8:40 AM An arterial [...] procedure well with no complications. Staffing Performed: resident/PARKS AND RECREATION MANAGER/CAA Anesthesiologist: Jackie Fernandez MD Resident/PARKS AND RECREATION MANAGER: Rica Rockwell MD Performed by: Yoan Pascual MD Authorized by: Jackie Fernandez MDSelect Medical TriHealth [facility] Hospital08-21-2024 Note Airway Date/Time: 12/19/2023 8:43 AM Urgency: elective General Information and Staff Patient location during procedure: [place] Anesthesiologist: Jackie Fernandez MD Resident/PARKS AND RECREATION MANAGER/CAA: Yoan Pascual MD Performed: resident/PARKS AND RECREATION MANAGER/CAA Indications and Patient Condition Indications for airway [...] approach: 1 Number of other approaches attempted: 0[facility] 12-19-2023 NotePatient: Harjeet Noriega Procedure Information Date/Time: 12/19/23 0830 Procedure: Ablation atrial fibrillation - PC APPROVED 12/18-02/17 do after cardioversion Location: [facility] DISPLAY DESIGNER 1 EP / [facility] (Cath) Providers: Nasir Yadav [...] Value Ventricular Rate 49 Atrial Rate 49 IN Interval 242 QRS DURATION 170 QT Interval 550 QTC CALCULATION(BAZETT) 496 P [place] 88 R-[place] -38 T Wave [place] 119 Impression Sinus bradycardia with 1st degree [...] discussed with attending and resident. Additional Equipment RequestsSelect Medical TriHealth Rehabilitation Hospital08-13-2024 Note Here for a consult for a afib ablation. Denies sob, dizziness [place] Electrophysiology Consult Note [place] Reason for visit: atrial fibrillation 12/11/23 [...] on file Intimate Partner Violence: Unknown (08/13/2023) [place] Safety [place] Fear of Current or [...] 160 QT Interval 508 QTC CALCULATION(BAZETT) 508 R-Centerbrook -38 T Wave [place] 116 Impression Atrial fibrillation Left axis deviation Non-specific intra-ventricular conduction block Left ventricular hypertrophy with repolarization abnormality ( R in aVL , [place]isade product ) Abnormal ECG When compared with ECG of 22-OCT-2023 09:56, (unconfirmed) Afib persists Confirmed by Nasir Yadav ([id number]) on 10/23/2023 8:43:15 AM Echo: 08/23/2023 Stress test: Danilo (more content not included)...[facility] Hospital[facility] note* Diagnosis Lumbar facet arthropathy- Primary Spondylosis of unspecified site without mention of myelopathy Spinal stenosis of lumbar region, unspecified whether neurogenic claudication present Radiculopathy, lumbosacral region Thoracic or lumbosacral neuritis or radiculitis, unspecified Encounter for medication monitoring Encounter for therapeutic drug monitoring Nocturnal leg cramps Polyneuropathy Unspecified hereditary and idiopathic peripheral neuropathy documented in this encounter [facility] HealthcareEvaluation note* Diagnosis Lumbar facet arthropathy- Primary Spondylosis of unspecified site without mention of myelopathy documented in this encounter [facility] HealthcareEvaluation note* Diagnosis Lumbar facet arthropathy Spondylosis [...] or radiculopathy Impaired fasting glucose Depressive disorder (CMS/HCC) Depressive disorder, not elsewhere classified Pure hypercholesterolemia (CMS/HCC) Pure hypercholesterolemia Morbid (severe) obesity due to excess calories (CMS/HCC) Body mass index (BMI) 39.0-39.9, adult Pulmonary hypertension, unspecified (CMS/HCC) Routine general medical examination at health care facility Routine general medical examination at a health care facility Type 2 diabetes mellitus with other specified complication, without long-term current use of insulin Screening for prostate cancer Special screening for malignant neoplasm of prostate documented in this encounter [facility]* Diagnosis Benign essential hypertension (CMS/HCC)- Primary Essential hypertension, benign Bilateral lower extremity edema documented in this encounter [facility]* Diagnosis Onset Date Resolution Status Admit Date Low back pain chronic November 11, 2024 8:43am Lumbar facet arthropathy chronic November 11, 2024 8:43am Lumbosacral radiculopathy chronic November 11, 2024 8:43am Nocturnal leg cramps chronic November 11, 2024 8:43am Polyneuropathy chronic November 11, 2024 8:43am Spinal stenosis of lumbar region chr onic November 11, 2024 8:43am [facility] Work Phone: Rertxc for referral (narrative)No reason for referral information availablePike Community Hospital Work Phone: Remrey for visit Narrative* Injection (Routine) - Closed Specialty Diagnoses / Procedures Referred By Contac t Referred To Contact Neurology Diagnoses Lumbar facet arthropathy Spinal stenosis of lumbar region, unspecified whether neurogenic claudication present Procedures Nerve Block Jenn Talavera NP [address] [place] [phone] Phone: tel: Referral ID Status Reason Start Date Expiration Date Visits Re quested Visits Authorized [id number] Closed 04/08/2024 05/30/2024 1 1 [facility] HealthcareReason for visit Narrative* Injection (Routine) - Closed Specialty Diagnoses / Procedures Referred By Contac t Referred To Contact Neurology Diagnoses Lumbar facet arthropathy Procedures Nerve Block Jenn Talavera NP [address] [place] [phone] Phone: tel: Referral ID Status Reason Start Date Expiration Date Visits Re quested Visits Authorized [id number] Closed 07/29/2024 09/26/2024 1 1 [facility] Healthcare Summary Purpose Family History Relationship Condition Age at Onset Recorded Date/T justin mother Hypertension Unknown father Malignant neoplasm Unknown Advance Directives Advance Directive Response Recorded Date/ [...] stenosis of lumbar region November 112024 8:43am Chief Complaint Admit Date fOLLOW UP November 11, 2024 8:43 am FACET- BILAT L4/L5-- APPROVED #[id number] December 16, 2024 8:52am Additional Source Comments (unrecognized sect ion and content) No Status Records FoundNo Status Records FoundNo Status Records FoundNo Status Records Found INFORMATION SOURCE (unrecogn ized section and content) DATE CREATED AUTHOR 11/18/2020 [facility] DATE CREATED AUTHOR AUTHOR'S ORGANIZ ATION 08/03/2024 [facility] DATE CREATED AUTHOR AUTHOR'S ORGANIZ ATION 12/02/2024 [facility] DATE CREATED AUTHOR AUTHOR'S ORGANIZ ATION 12/05/2024 [facility] Care Teams (unrecognized sec tion and content) Cardiac Rehabilitation Program Director Relationship Specialty Start Date End Date Armando Branham MD [address] [facility] [address] [place] [address] PCP - [employer] 04/30/17 Armando Branham MD [address] [facility] [address] [place] [address] PCP - General Internal Medicine 10/25/22 Cardiac Rehabilitation Program Director Relationship Specialty Start Date End Date Armando Branham MD [address] [place] [address] [place] [address] PCP - [employer] 04/30/17 Armando Branham MD [address] [place] [address] [place] [address] PCP - General Internal Medicine 10/25/22 Cardiac Rehabilitation Program Director Relationship Specialty Start Date End Date Armando Branham MD [address] [place] [address] [place] [address] PCP - [employer] 04/30/17 Armando Branham MD [address] [place] [address] [place] [address] PCP - General Internal Medicine 10/25/22 Cardiac Rehabilitation Program Director Relationship Specialty Start Date End Date Armando Branham MD [address] [place] [address] [place] [address] PCP - [employer] 04/30/17 Armando Branham MD [address] [place] [address] [place] [address] PCP - General Internal Medicine 10/25/22 Cardiac Rehabilitation Program Director Relationship Specialty Start Date End Date Armando Branham MD [address] [place] [address] [place] [address] PCP - [employer] 04/30/17 Armando Branham MD [address] [place] [address] [place] [address] PCP - General Internal Medicine 10/25/22 Cardiac Rehabilitation Program Director Relationship Specialty Start Date End Date Armando Branham MD [address] [place] [address] [place] [address] PCP - [employer] 04/30/17 Armando Branham MD [address] [place] [address] [place] [address] PCP - General Internal Medicine 10/25/22 Cardiac Rehabilitation Program Director Relationship Specialty Start Date End Date Armando Branham MD [address] [place] [address] [place] [address] PCP - [employer] 04/30/17 Armando Branham MD [address] [place] [address] [place] [address] PCP - General Internal Medicine 10/25/22 Cardiac Rehabilitation Program Director Relationship Specialty Start Date End Date Armando Branham MD [address] [place] [address] [place] [address] PCP - [employer] 04/30/17 Armando Branham MD [address] [place] [address] [place] [address] PCP - General Internal Medicine 10/25/22 Cardiac Rehabilitation Program Director Relationship Specialty Start Date End Date Armando Branham MD [address] [place] [address] [place] [address] PCP - [employer] 04/30/17 Armando Branham MD [address] [place] [address] [place] [address] PCP - General Internal Medicine 10/25/22 Cardiac Rehabilitation Program Director Relationship Specialty Start Date End Date Armando Branham MD [address] [place] [address] [place] [address] PCP - [employer] 04/30/17 Armando Branham MD [address] [place] [address] [place] [address] PCP - General Internal Medicine 10/25/22 Jenn Talavera, LUDWIG [address] [place] [phone] Nurse Practitioner Neurology 07/22/24 Nanette Martinez DO [address] [place] [id number] Referring Physician Neurology 07/22/24 Cardiac Rehabilitation Program Director Relationship Specialty Start Date End Date Armando Branham MD [address] [place] [address] [place] [address] PCP - [employer] 04/30/17 Armando Branham MD [address] [place] [address] [place] [address] PCP - General Internal Medicine 10/25/22 Jenn Talavera, LUDWIG [address] [place] [address], [place] [phone] Nurse Practitioner Neurology 07/22/24 Nanette Martinez DO [address] [place] [address], [place] [address] Referring Physician Neurology 07/22/24 Cardiac Rehabilitation Program Director Relationship Specialty Start Date End Date Armando Branham MD [address] [place] [address] [place] [address] PCP - [employer] 04/30/17 Armando Branham MD [address] [place] [address] [place] [address] PCP - General Internal Medicine 10/25/22 Jenn Talavera NP [address] [place] [address], [place] [phone] Nurse Practitioner Neurology 07/22/24 Nanette Maritnez DO [address] [place] [address], [place] [address] Referring Physician Neurology 07/22/24 Cardiac Rehabilitation Program Director Relationship Specialty Start Date End Date Armando Branham MD [address] [place] [address] [place] [address] PCP - [employer] 04/30/17 Armando Branham MD [address] [place] [address] [place] [address] PCP - General Internal Medicine 10/25/22 Jenn Talavera, LUDWIG [address] [phone] Nurse Practitioner Neurology 07/22/24 Nanette Martinez DO [address] [address] Referring Physician Neurology 07/22/24 Cardiac Rehabilitation Program Director Relationship Specialty Start Date End Date Armando Branham MD [address] [place] [address] [place] [address] PCP - [employer] 04/30/17 Armando Branham MD [address] [place] [address] [place] [address] PCP - General Internal Medicine 10/25/22 Jenn Talavera NP [address] [phone] Nurse Practitioner Neurology 07/22/24 Nanette Martinez DO [address] [address] Referring Physician Neurology 07/22/24 Team Status: Active Member Role Status Dates Armando Branham II MD Primary Care Provider Active Team Status: Inactive Member Role Status Dates Armando Branham II MD Primary Care Provider Active Start: November 11, 2024 End: November 11, 2024 Jenn Talavera APRN-TIME STUDY TECHNICIAN-Javi Attending Provider Active Start: November 11, 2024 End: November 11, 2024 Team Status: Inactive Member Role Status Dates Armando Branham II MD Primary Care Provider Active Start: December 16, 2024 End: December 16, 2024 Nanette Martinez DO Attending Provider Active Start: December 16, 2024 End: December 16, 2024 Reason for Visit (unrecogniz ed section and content) Reason Comments Back Pain Specialty Diagnoses / Procedures Referred By Contac t Referred To Contact Neurology Diagnoses Lumbar facet arthropathy Procedures Nerve Block Jenn Talavera, LUDWIG [address] [place] [phone] Referral ID Status Reason Start Date Expiration Date Visits Re quested Visits Authorized [id number] Closed 01/15/2024 02/28/2024 1 1 Reason Onset Date Comments Med Refill 06/09/2024 Goals (unrecognized section and content) Goals may be documented in a n alternate sectionGoals may be documented in an alternate section FOR RECORDS PERTAINING TO PATIENTS [...] BE BASED ON THE PRIMARY CLINICAL RECORDS. [employer] provides no warranty or guarantee of the accuracy or completeness of information in this document.
== END 2025-01-05 23:29 | disposition home or self-care (01) ==
LOC: SLEEP 23:29
PROVIDERS: PCP Nurse Practitioner Family; Visit Provider Nurse Practitioner Family
DX: G47.33 Obstructive sleep apnea (adult) (pediatric) (principal)
CPT/HCPCS: 95811